=== PATIENT | male | born 1960 | race Caucasian/White ===

== ENCOUNTER 2020-10-20 10:30 | Outpatient (REF) | payer BC, SELFPAY ==
[2020-10-20 12:24] LABS: Alanine Aminotransferase 30 U/L (0-40); Albumin Level 4.4 g/dL (3.5-5.0); Alkaline Phosphatase 70 U/L (39-117); Aspartate Amino Transferase 19 U/L (5-37); Bilirubin Direct 0.2 mg/dL (0.0-0.5); Bilirubin Total 0.3 mg/dL (0.0-1.0); Cholesterol 192 mg/dL; Glucose Fasting 149 mg/dL (60-99); HDL Cholesterol 33 mg/dL; LDL Cholesterol Calculated 120 mg/dl; Total Protein 6.8 g/dL (6.5-8.0); Triglycerides 197 mg/dL
[2020-10-20 13:03] LABS: Reflex LDLD? No
[2020-10-20 13:14] LABS: Estimated Average Glucose 157 mg/dL; Hemoglobin A1c % 7.1 %
== END 2020-10-20 10:31 | disposition home or self-care (01) ==
LOC: HO.LNP 10:30
PROVIDERS: Visit Provider Internal Medicine
DX: E11.9 Type 2 diabetes mellitus without complications (principal); E78.00 Pure hypercholesterolemia, unspecified
CPT/HCPCS: 80061; 80076; 82947; 83036

== ENCOUNTER 2020-10-25 13:39 | Outpatient (REF) | payer BC, SELFPAY ==
[2020-10-25 14:06] LABS: Glucose Urine UA NEG (NEG); Leukocyte Esterase Urine NEG (NEG); Nitrite Urine NEG (NEG); Urine Blood NEG (NEG); Urine Ketones 5 MG/DL (NEG); Urine Protein NEG (NEG-TRACE)
[2020-10-25 14:11] LABS: Appearance Urine CLEAR; Color Urine YELLOW
== END 2020-10-25 13:40 | disposition home or self-care (01) ==
LOC: HO.LNP 13:39
PROVIDERS: Visit Provider Internal Medicine
DX: N20.0 Calculus of kidney (principal)
CPT/HCPCS: 81003

== ENCOUNTER 2021-03-08 11:36 | Outpatient (REF) | payer BC, SELFPAY ==
--- NOTE | ~2021-03-08 | XR_ITS ---
EXAMINATION: XR FOOT, RIGHT CLINICAL INFORMATION: Cellulitis COMPARISON: Previous x-ray December 2008 TECHNIQUE: AP, lateral, and oblique views of the right foot. FINDINGS: Bone alignment is normal. No fracture or dislocation is seen. There is mild arthritis at the first MTP joint with joint space narrowing and osteophyte formation. Joint spaces are otherwise normal in there are small calcaneal spurs. There is soft tissue calcification plantar fascia. 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 Small calcaneal spurs and soft tissue calcification of the plantar fascia.
== END 2021-03-08 11:37 | disposition home or self-care (01) ==
LOC: HO.HMGCX 11:36
PROVIDERS: PCP Internal Medicine; Visit Provider Nurse Practitioner Family
DX: L03.90 Cellulitis, unspecified (principal)
CPT/HCPCS: 73630

== ENCOUNTER 2021-04-03 07:12 | Day surgery (SDC) | payer BC, SELFPAY ==
[2021-03-27 09:42] VITALS: BMI 37.5
--- NOTE | 2021-04-03 07:55 | P.CONAN_ITS ---
[facility] Active Problems Active Problems: All Active Problems (Updated 03/27/21 @ 09:40 by Sena askew) Cellulitis (Acute) Contact dermatitis (Acute) Past Medical History Medical History (Updated 03/27/21 @ 09:40 by Sena Aquino) Diabetes Elevated cholesterol Seizures Functional capacity: independent ambulation Family History Family history of problems with anesthesia: No Surgical History Surgical History H/O colonoscopy History of Problems with Anesthesia: No Social History Social History Advance Directives: No Advance Directives Information Provided: Yes Meds Allergies Allergy/AdvReac Type Severity Reaction Status Date / Time No Known Allergies Allergy Unverified 05/05/20 14:42 Home Medications Medication Instructions Recorded Confirmed Last Taken Type divalproex 500 mg tablet,delayed 500 mg PO 03/08/21 Unknown History release furosemide 20 mg tablet 20 mg PO DAILY 03/08/21 03/27/21 Unknown History metformin 500 mg tablet 1,000 mg PO BID 03/08/21 03/27/21 Unknown History phenytoin sodium extended 100 mg 100 mg PO BID 03/08/21 03/27/21 Unknown History capsule rosuvastatin 40 mg tablet 40 mg PO DAILY 03/08/21 03/27/21 Unknown History sitagliptin 100 mg tablet 100 mg PO DAILY 03/08/21 03/27/21 Unknown History Exam Exam Date and Time: April 03, 2021 0755 Height,Weight and Vital Signs: Height 5 ft 1 in Weight 90.265 kg Airway Mallampati Class: II TM Dist: >3cm Neck ROM: Full Heart: RRR Lungs: tA Assessment and Plan Final Anesthetic Review Family History of Problems with Anesthesia: No History of Problems with Anesthesia: No
[2021-04-03 08:13] VITALS: BMI 35.9
[2021-04-03 08:14] VITALS: BP 148/87; PULSE 74; RESP 18; TEMP 36.2; O2SAT 99
[2021-04-03 08:37] LABS: Glucose, Whole Blood 195 mg/dL (60-115)
[2021-04-03] MEDS: Lactated Ringers 1,000 ML 50 ML IVCONT (09:40)
[2021-04-03 10:25] VITALS: BP 120/71; PULSE 79; RESP 16; TEMP 36.8; O2SAT 97
--- NOTE | 2021-04-03 10:27 | PM.OP ---
Brief Operative Note Date of Service: 04/03/21 Pre-op diagnosis: Screening Post-op diagnosis: other (Colon polyp) Procedure: Colonoscopy to the cecum and TI with bx/removal of polyp Surgeon: Johnny Carlisle Anesthesia: MAC Was an Photovoltaic Subcontractor used for this Procedure?: No Estimated blood loss (mL): 3.0 Pathology: other (A. Polyp at 20cm) Condition: stable Disposition: PACU
[2021-04-03 10:30] VITALS: BP 128/76; PULSE 78; RESP 16; O2SAT 98
[2021-04-03 10:35] VITALS: BP 138/84; PULSE 72; RESP 16; TEMP 36.7; O2SAT 100
--- NOTE | 2021-04-03 10:36 | OP_ITS ---
SURGEON: Johnny Carlisle MD INDICATIONS: The patient presents for evaluation of colorectal cancer screening. Full consent has been obtained from him for this, including risks of bleeding and perforation. PREOPERATIVE DIAGNOSIS: Colorectal cancer screening. POSTOPERATIVE DIAGNOSIS: PROCEDURE PERFORMED: Colonoscopy to the cecum and terminal ileum with biopsy and removal of polyp. ESTIMATED BLOOD LOSS: COMPLICATIONS: ANESTHESIA: Monitored anesthesia care. ASSISTANTS: SPECIMENS: POSTOPERATIVE DIAGNOSES: Colorectal cancer screening, small colon polyp, diverticulosis, and small internal hemorrhoids. DESCRIPTION OF PROCEDURE: The patient was placed in the left lateral decubitus position. The digital rectal exam revealed no abnormalities. The Olympus video pediatric colonoscope was entered into the rectum and advanced easily to the cecum. Once in the cecum, I did identify normal-appearing cecal pouch with appendiceal orifice and a normal-appearing ileocecal valve. The terminal ileum was cannulated and appeared normal. The scope was withdrawn back in the colon. The entire cecum and ileocecal valve appeared normal. Scope was slowly withdrawn assessing all mucosal surfaces carefully. Preparation was excellent. At 20 cm, was a flat approximately 3 or 4 mm polyp, which was biopsied and completely removed with cold biopsy forceps. I did not visualize any other polyps, colitis, nor angiodysplasia. There was a moderate amount of sigmoid diverticulosis. In the rectum, scope was retroflexed visualizing small internal hemorrhoids, but no other pathology. The rectal mucosa appeared normal. The scope was straightened out and withdrawn from the patient. He tolerated the procedure well and was returned to the recovery area in stable condition. IMPRESSION: 1. Small colon polyp, status post biopsy and removal. 2. Diverticulosis. 3. Internal hemorrhoids. PLAN: The results of the biopsy will be checked. If this is a tubular adenoma, I would recommend a followup colonoscopy in 5 years. If it is only hyperplastic, I would recommend a followup colonoscopy in 10 years. He will otherwise see me on a p.r.n. basis. MD CAITLIN Fry/MARIA ELENA / [phone]
== END 2021-04-03 11:00 | disposition home or self-care (01) ==
PROVIDERS: PCP Internal Medicine; Visit Provider Internal Medicine
PROC: 0DJD8ZZ Inspection of Lower Intestinal Tract, Via Natural or Artificial Opening Endoscopic (ICD-10-PCS; CPT 45378; principal; 2021-04-03 09:20)
DX: Z12.11 Encounter for screening for malignant neoplasm of colon (principal); D12.5 Benign neoplasm of sigmoid colon; K57.30 Diverticulosis of large intestine without perforation or abscess without bleeding; K64.8 Other hemorrhoids; E11.9 Type 2 diabetes mellitus without complications; R56.9 Unspecified convulsions; E78.5 Hyperlipidemia, unspecified; Z79.82 Long term (current) use of aspirin; Z79.84 Long term (current) use of oral hypoglycemic drugs; Z79.899 Other long term (current) drug therapy
CPT/HCPCS: 45380; 82947; 88305

== ENCOUNTER 2021-04-25 10:13 | Outpatient (REF) | payer BC, SELFPAY ==
[2021-04-25 10:16] LABS: MANUAL DIFF FLAG NO
[2021-04-25 11:20] LABS: Basophils Absolute Auto 0.1 X10*3/uL (0.0-0.2); Basophils Percent Auto 0.8 % (0-2); Eosinophils Absolute Auto 0.3 X10*3/uL (0.0-0.4); Eosinophils Percent Auto 4.8 % (0-4); Hematocrit 37.1 % (42-52); Hemoglobin 12.8 g/dl (14.0-18.0); Imm Gran Abs Auto 0.06 X10*3/uL (0.00-0.03); Imm Gran Pct Auto 0.9 % (0.0-0.4); Lymphocytes Absolute Auto 2.6 X10*3/uL (1.2-4.9); Lymphocytes Percent Auto 40.9 % (20-40); Mean Corpuscular HGB Conc 34.5 g/dl (31.0-36.0); Mean Corpuscular Hemoglobin 31.1 pg (27.0-33.0); Mean Platelet Volume 12.2 fL (9.4-12.4); Monocytes Absolute Auto 0.7 X10*3/uL (0.1-1.2); Monocytes Percent Auto 11.3 % (2-11); Neutrophils Absolute Auto 2.7 X10*3/uL (2.0-8.3); Neutrophils Percent Auto 41.3 % (45-73); Platelet Count 149 X10*3/uL (160-400); Red Blood Count 4.12 X10*6/uL (4.60-5.80); Red Cell Distribution Width 13.1 % (11.0-16.0); White Blood Count 6.5 X10*3/uL (4.8-10.8)
[2021-04-25 12:00] LABS: Alanine Aminotransferase 23 U/L (0-40); Albumin Level 4.2 g/dL (3.5-5.0); Alkaline Phosphatase 75 U/L (39-117); Anion Gap 12 (12-20); Aspartate Amino Transferase 15 U/L (5-37); Bilirubin Total 0.3 mg/dL (0.0-1.0); Blood Urea Nitrogen 10 mg/dL (9-16); Carbon Dioxide 29 mmol/L (22-29); Chloride 105 mmol/L (96-108); Cholesterol 173 mg/dL; Estimated Glomerular Filt Rate > 60; Glucose Fasting 157 mg/dL (60-99); HDL Cholesterol 39 mg/dL; LDL Cholesterol Calculated 104 mg/dl; Potassium 3.7 mmol/L (3.3-5.1); Sodium 142 mmol/L (135-145); Total Protein 6.7 g/dL (6.5-8.0); Triglycerides 152 mg/dL
[2021-04-25 12:23] LABS: PSA,Total (Free>4and<10) 0.57 ng/mL (0.00-4.00); Vitamin D 25-OH Total 27.8 ng/mL (>30)
[2021-04-25 12:45] LABS: Reflex LDLD? No
[2021-04-25 13:18] LABS: Estimated Average Glucose 163 mg/dL; Hemoglobin A1c % 7.3 %
== END 2021-04-25 10:14 | disposition home or self-care (01) ==
LOC: HO.LNP 10:13
PROVIDERS: Visit Provider Internal Medicine
DX: Z00.00 Encounter for general adult medical examination without abnormal findings (principal); E11.9 Type 2 diabetes mellitus without complications; G40.909 Epilepsy, unspecified, not intractable, without status epilepticus; E78.00 Pure hypercholesterolemia, unspecified; D72.820 Lymphocytosis (symptomatic); E55.9 Vitamin D deficiency, unspecified
CPT/HCPCS: 80053; 80061; 82306; 83036; 84153; 85025

== ENCOUNTER 2021-05-02 16:10 | Outpatient (REF) | payer BC, SELFPAY ==
[2021-05-02 16:21] LABS: Appearance Urine CLEAR; Color Urine YELLOW; Glucose Urine UA 500 MG/DL (NEG); Leukocyte Esterase Urine NEG (NEG); Nitrite Urine NEG (NEG); Specific Gravity - Urine 1.025 (1.005-1.025); Urine Blood NEG (NEG); Urine Ketones 5 MG/DL (NEG); Urine Protein NEG (NEG-TRACE)
[2021-05-02 16:47] LABS: RBC Urine 0 /HPF (0); WBC Urine 0 /HPF (0-4)
[2021-05-02 17:13] LABS: Microalbum/Creatinine Ratio Ur 6.1 ug/mg cr
== END 2021-05-02 16:11 | disposition home or self-care (01) ==
LOC: HO.LNP 16:10
PROVIDERS: Visit Provider Internal Medicine
DX: E11.9 Type 2 diabetes mellitus without complications (principal)
CPT/HCPCS: 81001; 82043

== ENCOUNTER 2022-04-19 08:46 | Outpatient (REF) | payer BC, SELFPAY ==
--- NOTE | ~2022-04-19 | XR_ITS ---
EXAMINATION: XR HIP, LEFT CLINICAL INFORMATION: Left hip pain. Fall, trauma 3 weeks ago. COMPARISON: None TECHNIQUE: Three views of the left hip. FINDINGS: No fracture, dislocation, destructive process. Normal bony mineralization. No significant joint narrowing and no erosive change. There is benign labral capsular mineralization superolateral acetabular rim and mild spurring from the greater trochanter. There is also spurring at the ischial tuberosity origin tendons. The pubis is unremarkable. XR/XR hip LT min 2V IMPRESSION: -No fracture or dislocation. -Mild spurring greater trochanter and ischial tuberosity.
== END 2022-04-19 08:47 | disposition home or self-care (01) ==
LOC: HO.XRAY 08:46
PROVIDERS: PCP Internal Medicine; Visit Provider Internal Medicine
DX: M25.552 Pain in left hip (principal)
CPT/HCPCS: 73502

== ENCOUNTER 2022-04-27 11:05 | Outpatient (REF) | payer BC, SELFPAY ==
[2022-04-27 11:11] LABS: MANUAL DIFF FLAG NO
[2022-04-27 11:48] LABS: Basophils Absolute Auto 0.1 X10*3/uL (0.0-0.2); Basophils Percent Auto 0.9 % (0-2); Eosinophils Absolute Auto 0.3 X10*3/uL (0.0-0.4); Eosinophils Percent Auto 5.6 % (0-4); Hematocrit 39.3 % (42.0-52.0); Hemoglobin 13.5 g/dl (14.0-18.0); Imm Gran Abs Auto 0.05 X10*3/uL (0.00-0.03); Imm Gran Pct Auto 0.9 % (0.0-0.4); Lymphocytes Absolute Auto 2.7 X10*3/uL (1.2-4.9); Lymphocytes Percent Auto 45.9 % (20-40); Mean Corpuscular HGB Conc 34.4 g/dl (31.0-36.0); Mean Corpuscular Hemoglobin 30.7 pg (27.0-33.0); Mean Corpuscular Volume 89.3 fL (80.0-98.0); Monocytes Absolute Auto 0.6 X10*3/uL (0.1-1.2); Monocytes Percent Auto 9.7 % (2-11); Neutrophils Absolute Auto 2.2 x10*3/uL (2.0-8.3); Platelet Count 137 X10*3/uL (160-400); Red Cell Distribution Width 13.2 % (11.0-16.0); White Blood Count 5.9 X10*3/uL (4.8-10.8)
[2022-04-27 11:56] LABS: Appearance Urine Clear; Color Urine Yellow; Glucose Urine UA >=1000 mg/dL (Negative); Leukocyte Esterase Urine Negative (Negative); Nitrite Urine Negative (Negative); PH 6.5 (5.0-9.0); Specific Gravity - Urine 1.025 (1.005-1.025); Urine Blood Negative (Negative); Urine Ketones Trace mg/dL (Negative); Urine Protein Negative (Neg-Trace)
[2022-04-27 11:59] LABS: Bacteria Urine None Seen (None Seen); Estimated Average Glucose 212 mg/dL; Hyaline Casts Urine 0-2 /LPF (0-2); RBC Urine 0-2 /HPF (0-2); Squamous Epithelial Cell Urine 0-2 /HPF (0-2); WBC Urine 0-5 /HPF (0-5)
[2022-04-27 12:05] LABS: Alanine Aminotransferase 24 U/L (0-40); Albumin Level 4.2 g/dL (3.5-5.0); Alkaline Phosphatase 73 U/L (39-117); Anion Gap 15 (12-20); Aspartate Amino Transferase 17 U/L (5-37); Bilirubin Total 0.2 mg/dL (0.0-1.0); Blood Urea Nitrogen 12 mg/dL (9-16); Calcium 9.1 mg/dL (8.4-10.2); Carbon Dioxide 27 mmol/L (22-29); Chloride 102 mmol/L (96-108); Cholesterol 235 mg/dL; Estimated Glomerular Filt Rate > 60; Glucose Fasting 251 mg/dL (60-99); HDL Cholesterol 36 mg/dL; LDL Cholesterol Calculated 125 mg/dl; Potassium 4.1 mmol/L (3.3-5.1); Sodium 140 mmol/L (135-145); Total Protein 6.9 g/dL (6.5-8.0); Triglycerides 371 mg/dL
[2022-04-27 12:40] LABS: Creatinine Urine 106.74 mg/dL; Microalbumin Urine < 5.0 mg/L
[2022-04-27 13:24] LABS: PSA,Total (Free>4and<10) 0.53 ng/mL (0.00-4.00); Vitamin D 25-OH Total 36.4 ng/mL (>30)
== END 2022-04-27 11:06 | disposition home or self-care (01) ==
LOC: HO.LNP 11:05
PROVIDERS: Visit Provider Internal Medicine
DX: Z00.00 Encounter for general adult medical examination without abnormal findings (principal); Z12.5 Encounter for screening for malignant neoplasm of prostate; E11.9 Type 2 diabetes mellitus without complications; E78.2 Mixed hyperlipidemia; E55.9 Vitamin D deficiency, unspecified; D72.820 Lymphocytosis (symptomatic); E78.00 Pure hypercholesterolemia, unspecified
CPT/HCPCS: 80053; 80061; 81001; 82043; 82306; 83036; 84153; 85025

== ENCOUNTER 2022-08-16 10:22 | Outpatient (REF) | payer BC, SELFPAY ==
[2022-08-16 10:23] LABS: MANUAL DIFF FLAG NO
[2022-08-16 10:37] LABS: Basophils Absolute Auto 0.1 X10*3/uL (0.0-0.2); Basophils Percent Auto 1.1 % (0-2); Eosinophils Absolute Auto 0.5 X10*3/uL (0.0-0.4); Eosinophils Percent Auto 6.7 % (0-4); Hemoglobin 13.9 g/dl (14.0-18.0); Imm Gran Abs Auto 0.05 X10*3/uL (0.00-0.03); Imm Gran Pct Auto 0.7 % (0.0-0.4); Lymphocytes Absolute Auto 3.8 X10*3/uL (1.2-4.9); Lymphocytes Percent Auto 52.1 % (20-40); Mean Corpuscular HGB Conc 34.8 g/dl (31.0-36.0); Mean Corpuscular Hemoglobin 30.8 pg (27.0-33.0); Mean Corpuscular Volume 88.5 fL (80.0-98.0); Mean Platelet Volume 11.7 fL (9.4-12.4); Monocytes Absolute Auto 0.6 X10*3/uL (0.1-1.2); Monocytes Percent Auto 8.7 % (2-11); Neutrophils Absolute Auto 2.3 x10*3/uL (2.0-8.3); Neutrophils Percent Auto 30.7 % (45-73); Platelet Count 166 X10*3/uL (160-400); Red Blood Count 4.52 X10*6/uL (4.60-5.80); Red Cell Distribution Width 13.2 % (11.0-16.0); White Blood Count 7.3 X10*3/uL (4.8-10.8)
== END 2022-08-16 10:23 | disposition home or self-care (01) ==
LOC: HO.LNP 10:22
PROVIDERS: PCP Internal Medicine; Visit Provider Internal Medicine
DX: D69.6 Thrombocytopenia, unspecified (principal)
CPT/HCPCS: 85025

== ENCOUNTER 2022-12-13 15:37 | Outpatient (REF) | payer BC, SELFPAY ==
[2022-12-18 07:38] LABS: Lyme Abs Screen <0.90 index
== END 2022-12-13 15:38 | disposition home or self-care (01) ==
LOC: HO.LNP 15:37
PROVIDERS: Visit Provider Internal Medicine
DX: M19.90 Unspecified osteoarthritis, unspecified site (principal)
CPT/HCPCS: 86617; 86618

== ENCOUNTER 2023-03-26 11:55 | Outpatient (REF) | payer BC, SELFPAY ==
[2023-03-26 13:26] LABS: Phenytoin Dilantin 14.5 ug/mL (10.0-20.0)
== END 2023-03-26 11:56 | disposition home or self-care (01) ==
LOC: HO.LNP 11:55
PROVIDERS: Visit Provider Internal Medicine
DX: G40.909 Epilepsy, unspecified, not intractable, without status epilepticus (principal)
CPT/HCPCS: 80185

== ENCOUNTER 2023-05-10 10:58 | Outpatient (REF) | payer BC, SELFPAY ==
[2023-05-10 11:07] LABS: MANUAL DIFF FLAG NO
[2023-05-10 11:41] LABS: Appearance Urine Clear; Color Urine Yellow; Glucose Urine UA 250 mg/dL (Negative); Leukocyte Esterase Urine Negative (Negative); Nitrite Urine Negative (Negative); Specific Gravity - Urine 1.025 (1.005-1.025); Urine Blood Negative (Negative); Urine Ketones 15 mg/dL (Negative); Urine Protein Negative (Neg-Trace)
[2023-05-10 11:45] LABS: Bacteria Urine None Seen (None Seen); Hyaline Casts Urine 0-2 /LPF (0-2); RBC Urine 0-2 /HPF (0-2); Squamous Epithelial Cell Urine 0-2 /HPF (0-2); WBC Urine 0-5 /HPF (0-5)
[2023-05-10 11:46] LABS: Basophils Absolute Auto 0.1 X10*3/uL (0.0-0.2); Basophils Percent Auto 1.4 % (0-2); Eosinophils Absolute Auto 0.4 X10*3/uL (0.0-0.4); Eosinophils Percent Auto 6.2 % (0-4); Hemoglobin 12.8 g/dl (14.0-18.0); Imm Gran Abs Auto 0.05 X10*3/uL (0.00-0.03); Imm Gran Pct Auto 0.8 % (0.0-0.4); Lymphocytes Absolute Auto 2.8 X10*3/uL (1.2-4.9); Mean Corpuscular HGB Conc 34.6 g/dl (31.0-36.0); Mean Corpuscular Hemoglobin 31.4 pg (27.0-33.0); Mean Corpuscular Volume 90.9 fL (80.0-98.0); Monocytes Absolute Auto 0.7 X10*3/uL (0.1-1.2); Monocytes Percent Auto 10.9 % (2-11); Neutrophils Absolute Auto 2.4 x10*3/uL (2.0-8.3); Neutrophils Percent Auto 36.7 % (45-73); Platelet Count 148 X10*3/uL (160-400); Red Blood Count 4.07 X10*6/uL (4.60-5.80); Red Cell Distribution Width 13.6 % (11.0-16.0); White Blood Count 6.4 X10*3/uL (4.8-10.8)
[2023-05-10 11:54] LABS: Estimated Average Glucose 163 mg/dL; Hemoglobin A1c % 7.3 % (<6.0)
[2023-05-10 12:10] LABS: Creatinine Urine 129.88 mg/dL; Microalbum/Creatinine Ratio Ur 4.6 ug/mg cr (<30)
[2023-05-10 12:16] LABS: Alanine Aminotransferase 36 U/L (0-40); Albumin Level 4.2 g/dL (3.5-5.0); Alkaline Phosphatase 62 U/L (39-117); Anion Gap 14 (12-20); Aspartate Amino Transferase 22 U/L (5-37); Bilirubin Total 0.2 mg/dL (0.0-1.0); Blood Urea Nitrogen 10 mg/dL (9-16); Carbon Dioxide 26 mmol/L (22-29); Chloride 106 mmol/L (96-108); Cholesterol 208 mg/dL (<200); Estimated Glomerular Filt Rate > 60; Glucose Fasting 165 mg/dL (60-99); HDL Cholesterol 38 mg/dL (>40); Potassium 4.1 mmol/L (3.3-5.1); Sodium 142 mmol/L (135-145); Total Protein 6.7 g/dL (6.5-8.0); Triglycerides 439 mg/dL (<150)
== END 2023-05-10 10:59 | disposition home or self-care (01) ==
LOC: HO.LNP 10:58
PROVIDERS: Visit Provider Internal Medicine
DX: Z00.00 Encounter for general adult medical examination without abnormal findings (principal); E11.9 Type 2 diabetes mellitus without complications; E78.00 Pure hypercholesterolemia, unspecified; D72.820 Lymphocytosis (symptomatic); E55.9 Vitamin D deficiency, unspecified; D69.6 Thrombocytopenia, unspecified
CPT/HCPCS: 80053; 80061; 81001; 82043; 82306; 82570; 83036; 85025

== ENCOUNTER 2023-06-11 15:23 | Outpatient (REF) | payer BC, SELFPAY ==
[2023-06-11 16:32] LABS: PSA,Total (Free>4and<10) 0.52 ng/mL (0.00-4.00)
== END 2023-06-11 15:24 | disposition home or self-care (01) ==
LOC: HO.LNP 15:23
PROVIDERS: Visit Provider Internal Medicine
DX: Z12.5 Encounter for screening for malignant neoplasm of prostate (principal)
CPT/HCPCS: 84153

== ENCOUNTER 2023-08-28 14:57 | Outpatient (REF) | payer BC, SELFPAY ==
[2023-08-28 15:46] LABS: Estimated Average Glucose 237 mg/dL; Hemoglobin A1c % 9.9 % (<6.0)
[2023-08-28 16:12] LABS: Anion Gap 13 (12-20); Blood Urea Nitrogen 10 mg/dL (9-16); Calcium 9.2 mg/dL (8.4-10.2); Carbon Dioxide 28 mmol/L (22-29); Chloride 102 mmol/L (96-108); Estimated Glomerular Filt Rate > 60; Glucose Random 299 mg/dL (60-115); Potassium 4.3 mmol/L (3.3-5.1); Sodium 139 mmol/L (135-145)
[2023-08-28 16:17] LABS: Phenytoin Dilantin 17.3 ug/mL (10.0-20.0)
== END 2023-08-28 14:58 | disposition home or self-care (01) ==
LOC: HO.LAB 14:57
PROVIDERS: PCP Internal Medicine; Visit Provider Psychiatry & Neurology Neurology
DX: G40.909 Epilepsy, unspecified, not intractable, without status epilepticus (principal); Z79.899 Other long term (current) drug therapy
CPT/HCPCS: 36415; 80048; 80164; 80185; 83036

== ENCOUNTER 2023-09-30 10:45 | Emergency (ER) | payer BC, SELFPAY ==
[2023-09-30] VITALS (9 sets, daily range): BP systolic 146–181; BP diastolic 83–102; PULSE 74–85; RESP 16; TEMP 36.6–36.8; O2SAT 96–98; BMI 32.9
--- NOTE | ~2023-09-30 | CT_ITS ---
EXAMINATION: CT HEAD WITHOUT CONTRAST CLINICAL INFORMATION: Dizziness. Resolved double vision. COMPARISON: None available. TECHNIQUE: Contiguous axial imaging was performed from the skull base to vertex without intravenous administration of contrast. This CT examination was performed using dose optimization techniques as appropriate, variously including the following: *Automated exposure control *Adjustment of mA and/or kV according to patient size (this includes techniques or standardized protocols for targeted exams where dose is matched to indication/reason for exam; i.e. extremities or head) *Use of iterative reconstruction technique DLP: 731 mGy-cm FINDINGS: No intracranial hemorrhage, large infarction, or mass lesion is seen. No extra-axial collection is appreciated. The ventricles are normal in size and configuration without evidence of hydrocephalus. Mild mucosal thickening involving the frontal sinus infundibula bilaterally. The mastoid air cells are clear. CT/CT head/brain wo IV con IMPRESSION: No acute intracranial finding.
--- NOTE | ~2023-09-30 | CT_ITS ---
EXAMINATION: CT ANGIOGRAM HEAD CT ANGIOGRAM NECK CLINICAL INFORMATION: Dizziness. Double vision. COMPARISON: CT head from 09/30/2023. TECHNIQUE: Initial noncontrast block trader imaging of the head and neck was performed. Comparison is made with noncontrast head CT from earlier today. Test bolus sequences followed by intravenous administration 70 mL of Omnipaque 350. Helical imaging was performed in the axial plane from the aortic arch to the skull vertex. Delayed postcontrast imaging of the head was also performed. The data was processed at the registered radiologic technologist's workstation for generation of MIP sequences. Angled MIPs and volume rendered reformatted images were also generated at an offline 3D workstation. Stenoses are assessed in accordance with NASCET criteria unless otherwise indicated. This CT examination was performed using dose optimization techniques as appropriate, variously including the following: *Automated exposure control. *Adjustment of mA and/or kV according to patient size (this includes techniques or standardized protocols for targeted exams where dose is matched to indication/reason for exam; i.e. extremities or head). *Use of iterative reconstruction technique. DLP: 1444 mGy-cm FINDINGS: CT Head: There is no evidence of acute intracranial hemorrhage or edematous territorial infarction. Basal ganglia mineralization. Alex-white matter differentiation is preserved. A few foci of hypoattenuation in the periventricular and deep white matter are consistent with mild microangiopathy. Proportional prominence of the ventricles and sulcal spaces without evidence of obstructive hydrocephalus. No abnormal mass effect or midline shift. No extra-axial fluid collections. No pathologic intra-axial enhancement or regional oligemia. No acute soft tissue or osseous abnormalities. Mild mucosal thickening of the paranasal sinuses. The mastoid air cells and middle ear cavities are clear. Multifocal odontogenic enamel erosions. Periapical lucencies associated with the maxillary right 1st molar. No demonstrated abnormalities of the orbits. CT Neck: The thyroid gland and remaining cervical soft tissues are within normal limits. Moderate multilevel degenerative disc disease. Moderate bridging anterior osteoarthrosis from C3-T3. Facet and uncovertebral joint arthropathy leads to osseous encroachment on the neural foramina from C2-T3. CT Upper Chest: The visualized lung apices and upper mediastinum are within normal limits. Neck CTA: Aortic Arch: Normal contour and caliber. Classic 3 vessel branching pattern of the aortic arch. Great Vessel Origins: No significant stenosis of the branch origins. Right Common Carotid Artery: No focal stenosis or occlusion. Cervical Right Internal Carotid Artery: Mild calcific atherosclerotic disease of the carotid bulb and proximal internal carotid artery without flow-limiting stenosis. Left Common Carotid Artery: No focal stenosis or occlusion. Cervical Left Internal Carotid Artery: Mild calcific atherosclerotic disease of the carotid bulb and proximal internal carotid artery without flow-limiting stenosis. Cervical Right Vertebral Artery: Co-dominant. No focal stenosis or occlusion. Cervical Left Vertebral Artery: Co-dominant. No focal stenosis or occlusion. Brain CTA: Intracranial Internal Carotid Arteries: Mild calcific atherosclerotic disease of the intracranial internal carotid arteries without occlusion or flow-limiting stenosis. Right Anterior Cerebral Artery: No Normal opacification of the distal KARAN segments. Left Anterior Cerebral Artery: Normal A1 segment. Normal opacification of the distal KARAN segments. Anterior Communicating Artery: Normal. Right Middle Cerebral Artery: Normal M1 segment of the MCA without focal stenosis or occlusion. Normal arborization of the distal segments. Left Middle Cerebral Artery: Normal M1 segment of the MCA without focal stenosis or occlusion. Normal arborization of the distal segments. Right Vertebral Artery: Normal V4 segment. The posterior inferior cerebellar artery is not well opacified; however, there is no CT evidence of acute occlusion. Left Vertebral Artery: Normal V4 segment. Normal opacification of the proximal segments of the posterior inferior cerebellar artery. Basilar Artery: Normal without focal stenosis or occlusion. Normal appearance of the proximal superior cerebellar arteries. Right Posterior Cerebral Artery: Normal P1 segment. Normal opacification of the distal FURNACE RELINER segments. Left Posterior Cerebral Artery: Normal P1 segment. Normal opacification of the distal FURNACE RELINER segments. Normal opacification of the superior sagittal, straight, transverse, and sigmoid sinuses. CT/CT angio head neck IMPRESSION: 1. No evidence of acute intracranial hemorrhage or edematous territorial infarction. Mild underlying microangiopathy and generalized cerebral volume loss. 2. CTA of the head and neck without proximal occlusion or flow-limiting stenosis. 3. Moderate multilevel degenerative spondyloarthropathy of the cervical spine.
--- NOTE | ~2023-09-30 | US_ITS ---
EXAMINATION: US VENOUS ULTRASOUND WITH DOPPLER LOWER EXTREMITY, LEFT CLINICAL INFORMATION: Pain, swelling Patient states no pain today, pain last week COMPARISON: None available. TECHNIQUE: Ultrasound of the deep veins is performed from the hip to the calf with compression sonography and color and pulse Doppler assessment. Spectral analysis with color-flow imaging is performed. FINDINGS: There is normal venous compression and respiratory variation. The visualized common femoral vein, superficial femoral vein, profunda femoral vein, popliteal vein, and the posterior vein shows no evidence of deep venous thrombosis. The left peroneal vein is not seen. The contralateral common femoral vein demonstrates normal respiratory variation and vascular flow. US/US venous duplex LE IMPRESSION: No DVT demonstrated in the left lower extremity.
--- NOTE | 2023-09-30 11:14 | ECG_ITS ---
Test Reason : DIZZNESS Blood Pressure : / mmHG Vent. Rate : 080 BPM Atrial Rate : 080 BPM P-R Int : 156 ms QRS Dur : 094 ms QT Int : 386 ms P-R-T Axes : 039 -29 006 degrees QTc Int : 445 ms Normal sinus rhythm Normal ECG No previous ECGs available Referred By: Marisela Connolly Electronically Signed By:Chavez Hopson
--- NOTE | 2023-09-30 11:42 | ED.DIZZY ---
HPI - Dizziness General Chief Complaint: Dizziness Stated Complaint: DIZZY PER EMS Time Seen by Provider: 09/30/23 10:48 Source: patient Mode of arrival: EMS Limitations: no limitations History of Present Illness HPI Narrative: 63 yo male with PMH of seizures and diabetes notes he has had one week of dizziness when he stands he just recently started on strong edibles for L knee pain and notes his leg is swelling. He has blurred vision when he stands and is dizzy. He has no GIB or chest pain/dyspnea. He notes yesterday watching TV he had double vision side by side but it resolved during the day. He has no headache. He is compliant with his seizure medications and has not had a seizure. He notes it did all start after taking the strong edible MD elicited complaint: dizziness Onset (ago): day(s) (7) Timing: sudden onset and intermittent Severity: moderate Description: sense of movement and lightheadedness Context: change in body position History of similar symptoms: No Exacerbating factors: movement/ambulation and change in body position Relieving factors: remaining still Associated symptoms: other (L knee pain and swelling) Associated neuro symptoms: diplopia Related Data Home Medications Medication Instructions Recorded Confirmed divalproex 500 mg tablet,delayed 500 mg PO 03/08/21 release furosemide 20 mg tablet 20 mg PO DAILY 03/08/21 03/27/21 metformin 500 mg tablet 1,000 mg PO BID 03/08/21 03/27/21 phenytoin sodium extended 100 mg 100 mg PO BID 03/08/21 03/27/21 capsule rosuvastatin 40 mg tablet 40 mg PO DAILY 03/08/21 03/27/21 sitagliptin phosphate 100 mg tablet 100 mg PO DAILY 03/08/21 03/27/21 Previous Rx's Medication Instructions Recorded cephalexin 500 mg capsule 500 mg PO QID 7 days #28 caps 03/08/21 hydrocortisone 1 % topical cream 1 appl topical QID PRN skin 03/08/21 irritation #28.35 grams Allergies Allergy/AdvReac Type Severity Reaction Status Date / Time No Known Allergies Allergy Unverified 05/05/20 14:42 Review of Systems Review of Systems: Constitutional : No Fever, No Chills, No Fatigue ENT/Mouth : No sore throat, No Rhinorrhea Eyes: No Eye Pain, No Swelling, No Redness Cardiovascular : No Chest Pain, No SOB, No Dyspnea on Exertion Respiratory : No Cough, No Sputum Gastrointestinal : No Nausea, No Vomiting, No Diarrhea, No abdominal Pain Genitourinary : No Dysuria, No Urinary Frequency, No Hematuria, Musculoskeletal : pos joint pain, No Myalgias, No Joint Swelling, pos leg edema Skin : No Skin Lesions, No rash Neuro : No Weakness, No Numbness, pos Dizziness, no Headache Psych : No Anxiety/Panic, No Depression Heme/Lymph: No Bruising, No Bleeding,No Lymphadenopathy Endocrine : No Polyuria, No Polydipsia All other systems reviewed and are negative [facility] Past Medical History Attestation statement: The following information was validated with the patient. Source: old records reviewed Medical History Elevated cholesterol Seizures Diabetes Surgical History H/O colonoscopy Social History Social History Patient Tobacco Use Status: Never used Tobacco Smoked in Last 30 Days: No Use of substances other than those prescribed or required for medical reasons: Yes Substance Use Type: Marijuana Substance Use Frequency: Weekly Last Used Substance: Weeks (ago) Advance Directives: No Physical Exam Vital Signs: Vital Signs: Last Vital Signs Temp 98 F 09/30/23 10:55 Pulse 82 09/30/23 14:31 Resp 16 09/30/23 10:55 BP 147/90 H 09/30/23 14:31 Pulse Ox 98 09/30/23 10:55 O2 Del Method Room Air 09/30/23 10:55 BMI result Body Mass Index 32.9 Appearance: Alert. Oriented X3. No acute distress. Loopy appearing Eyes: Pupils equal, round and reactive to light. ENT: Pharynx normal. atraumatic Neck: Normal inspection. Neck supple. CVS: Normal heart rate and rhythm. Pulses normal. Respiratory: No respiratory distress. Breath sounds normal. Abdomen: Soft and nontender. Skin: Skin warm and dry. Normal skin color. Normal skin turgor. Extremities: mild trace pitting edema left leg distal NV Intact no erythema or warmth Neuro: Oriented X 3. No motor deficit. No sensory deficit. Course Course Course Narrative: negative ortho VS, he is very wobbly walking Reevaluation(s) Reevaluation #1: signed out to Dr. Nelson pending CTA Medications Administered Discontinued Medications Generic Name Dose Route Start Last Admin Trade Name Baldomero PRN Reason Stop Dose Admin Magnesium Sulfate 2 gm in 50 mls @ 25 mls/hr 09/30/23 13:12 09/30/23 14:05 Magnesium Sulfate/H2o IV 09/30/23 15:11 25 mls/hr ONCE ONE Administration Medical Decision Making Medical Decision Making [facility] Narrative: 63 yo male with PMH of seizures and diabetes here with c/o dizziness and blurred vision when standing did have episode of double vision yesterday - he has nonfocal neuro exam. This all started one week ago with starting a strong edible for L knee pain. At this time he will need labs, EKG, CT head for mass/stroke though seems more positional or related to the edible, given swelling in LLE DVT study, depakote level for toxicity, ortho VS Differential Diagnosis Differential Diagnoses: The differential diagnosis associated with the presentation includes edible side effects, anemia, dehydration, mass, stroke, depakote toxicity Admission/Observation Consideration of admission/observation: Escalation of care including admission/observation considered Lab Data [facility] Lab Attestation statement: I reviewed the patient's lab results. 09/30/23 12:24 09/30/23 12:24 Labs: Lab Results 09/30/23 09/30/23 09/30/23 Range/Units 12:23 12:24 12:44 WBC 5.4 (4.8-10.8) X10*3/uL RBC 4.43 L (4.60-5.80) X10*6/uL Hgb 13.7 L (14.0-18.0) g/dl Hct 39.3 L (42.0-52.0) % MCV 88.7 (80.0-98.0) fL MCH 30.9 (27.0-33.0) pg MCHC 34.9 (31.0-36.0) g/dl RDW 13.1 (11.0-16.0) % Plt Count 141 L (160-400) X10*3/uL MPV 11.7 (9.4-12.4) fL Immature Gran % (Auto) 0.6 H (0.0-0.4) % Neut % (Auto) 38.2 L (45-73) % Lymph % (Auto) 34.7 (20-40) % Wheeler % (Auto) 7.6 (2-11) % Eos % (Auto) 17.8 H (0-4) % Baso % (Auto) 1.1 (0-2) % Lymph # (Auto) 1.9 (1.2-4.9) X10*3/uL Wheeler # (Auto) 0.4 (0.1-1.2) X10*3/uL Eos # (Auto) 1.0 H (0.0-0.4) X10*3/uL Baso # (Auto) 0.1 (0.0-0.2) X10*3/uL Abs Immat Gran (auto) 0.03 (0.00-0.03) X10*3/uL Absolute Neuts (auto) 2.1 (2.0-8.3) x10*3/uL Absolute Nucleated RBC 0.000 (0.0-0.012) X10*3/uL Nucleated RBC % (auto) 0.0 (0.0-0.2) /100WBC Sodium 138 (135-145) mmol/L Potassium 3.9 (3.3-5.1) mmol/L Chloride 103 (96-108) mmol/L Carbon Dioxide 27 (22-29) mmol/L Anion Gap 12 (12-20) BUN 15 (9-16) mg/dL Creatinine 0.71 (0.5-1.4) mg/dL Estim Creat Clear Calc 99.5 Estimated GFR > 60 Random Glucose 157 H (60-115) mg/dL Calcium 9.2 (8.4-10.2) mg/dL Magnesium 1.4 L* (1.6-2.6) mg/dL Total Bilirubin 0.3 (0.0-1.0) mg/dL Direct Bilirubin 0.1 (0.0-0.5) mg/dL AST 13 (5-37) U/L ALT 20 (0-40) U/L Alkaline Phosphatase 65 (39-117) U/L Troponin I High Sens < 2.7 (<3.5-35.0) ng/L Total Protein 6.5 (6.5-8.0) g/dL Albumin 4.0 (3.5-5.0) g/dL Urine Color Yellow Urine Appearance Clear Urine pH 6.5 (5.0-9.0) Ur Specific [place] 1.015 (1.005-1.025) Urine Protein Negative (Neg-Trace) mg/dL Urine Glucose (UA) Negative (Negative) mg/dL Urine Ketones 15 (Negative) mg/dL Urine Blood Negative (Negative) Urine Nitrite Negative (Negative) Ur Leukocyte Esterase Negative (Negative) Urine Opiates Screen Not Detected (Not Detect) Urine Fentanyl Screen Not Detected (Not Detect) Ur Barbiturates Screen Not Detected (Not Detect) Valproic Acid 38.3 L (50.0-100.0) mcg/mL Ur Phencyclidine Scrn Not Detected (Not Detect) Ur Amphetamines Screen Not Detected (Not Detect) U Benzodiazepines Scrn Not Detected (Not Detect) Urine Cocaine Screen Not Detected (Not Detect) U Marijuana (THC) Screen Not Detected (Not Detect) Ethyl Alcohol < 10 mg/dL COVID-19 (SAL) Negative (Negative) COVID-19 Clin Com See Note Independent Interpretation I performed an independent interpretation of an: EKG, Ultrasound and CT Scan Interpretation: Rate: 80 Rhythm: NSR [place]: left Normal P waves. Normal [place]. Normal QRS complex. ST T wave : normal no EMILIANO qTC: 445 prior studies: no acute ischemia The study has been interpreted contemporaneously by me. . Radiology Impression Discussion of test interpretation with radiology: I have reviewed the radiologist's reading. Independent Historian Clinical information obtained from an independent historian. History obtained from or confirmed by: EMS External Record Review External record reviewed: Inpatient record Discharge Plan Discharge Clinical Impression: Hypomagnesemia, Dizziness Patient Disposition: Still a Patient Prescriptions: No Action Januvia 100 mg tablet 100 mg PO DAILY rosuvastatin 40 mg tablet 40 mg PO DAILY furosemide 20 mg tablet 20 mg PO DAILY divalproex 500 mg tablet,delayed release (DR/EC) 500 mg PO phenytoin sodium extended 100 mg capsule 100 mg PO BID metformin 500 mg tablet 1,000 mg PO BID cephalexin 500 mg capsule 500 mg PO QID 7 Days Qty: 28 0RF hydrocortisone 1 % cream 1 appl topical QID PRN (Reason: skin irritation) Qty: 28.35 0RF
[2023-09-30 12:31] LABS: MANUAL DIFF FLAG NO
[2023-09-30 12:35] LABS: Basophils Absolute Auto 0.1 X10*3/uL (0.0-0.2); Basophils Percent Auto 1.1 % (0-2); Eosinophils Percent Auto 17.8 % (0-4); Hematocrit 39.3 % (42.0-52.0); Hemoglobin 13.7 g/dl (14.0-18.0); Imm Gran Abs Auto 0.03 X10*3/uL (0.00-0.03); Imm Gran Pct Auto 0.6 % (0.0-0.4); Lymphocytes Absolute Auto 1.9 X10*3/uL (1.2-4.9); Lymphocytes Percent Auto 34.7 % (20-40); Mean Corpuscular HGB Conc 34.9 g/dl (31.0-36.0); Mean Corpuscular Hemoglobin 30.9 pg (27.0-33.0); Mean Corpuscular Volume 88.7 fL (80.0-98.0); Mean Platelet Volume 11.7 fL (9.4-12.4); Monocytes Absolute Auto 0.4 X10*3/uL (0.1-1.2); Monocytes Percent Auto 7.6 % (2-11); Neutrophils Absolute Auto 2.1 x10*3/uL (2.0-8.3); Neutrophils Percent Auto 38.2 % (45-73); Platelet Count 141 X10*3/uL (160-400); Red Blood Count 4.43 X10*6/uL (4.60-5.80); Red Cell Distribution Width 13.1 % (11.0-16.0); White Blood Count 5.4 X10*3/uL (4.8-10.8)
[2023-09-30 12:56] LABS: Valproate 38.3 mcg/mL (50.0-100.0)
[2023-09-30 12:57] LABS: Troponin-I High Sensitivity < 2.7 ng/L (<3.5-35.0)
[2023-09-30 12:57] LABS: Appearance Urine Clear; Color Urine Yellow; Glucose Urine UA Negative (Negative); Leukocyte Esterase Urine Negative (Negative); Nitrite Urine Negative (Negative); PH 6.5 (5.0-9.0); Specific Gravity - Urine 1.015 (1.005-1.025); Urine Blood Negative (Negative); Urine Ketones 15 mg/dL (Negative); Urine Protein Negative (Neg-Trace)
[2023-09-30 12:58] LABS: COVID-19 Test Negative (Negative); IDNOW Serial# 9DB6401D
[2023-09-30 13:03] LABS: Amphetamine Screen Urine Not Detected (Not Detect); Barbiturates, Urine Not Detected (Not Detect); Benzodiazepines Screen Urine Not Detected (Not Detect); Cannabinoid Screen Urine Not Detected (Not Detect); Cocaine Screen Urine Not Detected (Not Detect); Fentanyl, urine Not Detected (Not Detect); Opiate Screen Urine Not Detected (Not Detect); Phencyclidine Screen Urine Not Detected (Not Detect)
[2023-09-30 13:13] LABS: Alanine Aminotransferase 20 U/L (0-40); Alkaline Phosphatase 65 U/L (39-117); Anion Gap 12 (12-20); Aspartate Amino Transferase 13 U/L (5-37); Bilirubin Direct 0.1 mg/dL (0.0-0.5); Bilirubin Total 0.3 mg/dL (0.0-1.0); Blood Urea Nitrogen 15 mg/dL (9-16); Calcium 9.2 mg/dL (8.4-10.2); Carbon Dioxide 27 mmol/L (22-29); Chloride 103 mmol/L (96-108); Creatinine Clr Calc Pharmacy 99.5; Estimated Glomerular Filt Rate > 60; Ethanol < 10 mg/dL; Glucose Random 157 mg/dL (60-115); Magnesium 1.4 mg/dL (1.6-2.6); Potassium 3.9 mmol/L (3.3-5.1); Sodium 138 mmol/L (135-145); Total Protein 6.5 g/dL (6.5-8.0)
[2023-09-30] MEDS: Magnesium Sulfate/H2O 2 GM/50 ML PIGGYBACK IV (14:05)
[2023-09-30] MEDS: iohexoL 350 MG/ML 100 ML INFUS..BTL 60 ML IV (16:32)
[2023-09-30] MEDS: 0.9 % Sodium Chloride 1,000 ML 999 ML IVCONT (17:20)
== END 2023-09-30 20:26 | disposition home or self-care (01) ==
PROVIDERS: Emergency Medicine; Emergency Provider Emergency Medicine; PCP Internal Medicine
DX: E83.42 Hypomagnesemia (principal); R42 Dizziness and giddiness; R60.0 Localized edema; Z11.52 Encounter for screening for COVID-19; E11.9 Type 2 diabetes mellitus without complications; E78.00 Pure hypercholesterolemia, unspecified; Z79.84 Long term (current) use of oral hypoglycemic drugs; Z79.02 Long term (current) use of antithrombotics/antiplatelets; Z79.899 Other long term (current) drug therapy
CPT/HCPCS: 36415; 70450; 70496; 70498; 80048; 80076; 80164; 80307; 81003; 83735; 84484; 85025; 87635; 93005; 93971; 96365; 99284; 99285; J3475; Q9967

== ENCOUNTER → 2023-09-30 11:14 | Outpatient (BNV) | payer BC, SELFPAY | PROVIDERS: Emergency Provider Emergency Medicine; PCP Internal Medicine; Visit Provider Internal Medicine Cardiovascular Disease | DX: R42 Dizziness and giddiness (principal) | CPT/HCPCS: 93010 ==

== ENCOUNTER 2023-10-21 07:41 | Outpatient (REF) | payer BC, SELFPAY ==
[2023-10-21 09:16] LABS: Valproate 43.4 mcg/mL (50.0-100.0)
== END 2023-10-21 07:42 | disposition home or self-care (01) ==
LOC: HO.LAB 07:41
PROVIDERS: PCP Internal Medicine; Visit Provider Registered Nurse
DX: G40.909 Epilepsy, unspecified, not intractable, without status epilepticus (principal); Z79.899 Other long term (current) drug therapy
CPT/HCPCS: 36415; 80164

== ENCOUNTER 2023-10-23 17:05 | Outpatient (REF) | payer BC, SELFPAY ==
--- NOTE | ~2023-10-23 | MR_ITS ---
EXAMINATION: MR BRAIN WITHOUT CONTRAST CLINICAL INFORMATION: 63-year-old with question of stroke or seizure. COMPARISON: 09/30/2023 CT angiogram brain. TECHNIQUE: MRI of the brain was obtained using routine sequences without contrast. FINDINGS: BRAIN VOLUME: Mild generalized diffuse supratentorial brain parenchymal volume loss is noted with a slightly biparietal and right parasylvian predominance. STRUCTURAL: No malformations. BRAIN AND MENINGES: DWI sequence demonstrates no restricted diffusion to suggest acute or subacute cerebral ischemia. There is a 4 mm nonspecific T2 hyperintensity in the deep left centrum semiovale periventricular white matter, which may reflect a tiny focus of chronic ischemic microangiopathy. There is a 7.5 mm focus of ovoid T2 hyperintensity in the left external capsule, which may also reflect a small focus of chronic ischemic microangiopathy. A mildly dilated perivascular space versus remote lacunar infarct is seen in the retrolenticular portion of the left internal capsule. Otherwise, the brain parenchyma is normal in signal intensity. No extra-axial fluid collections, space-occupying process or mass effect are identified. Gradient refocused imaging demonstrates no abnormal susceptibility-weighted signal loss to suggest hemorrhage, hemosiderin staining or abnormal mineralization. VENTRICLES AND SUBARACHNOID SPACES: The ventricular system and subarachnoid spaces are approximately proportional to the degree of parenchymal volume loss, without hydrocephalus. ORBITAL STRUCTURES: The visualized orbital structures are grossly unremarkable within the limitations of the study. VASCULAR: Signal voids are noted in the visualized major intracranial vessels. OSSEOUS STRUCTURES, SINUSES/MASTOIDS, EXTRACRANIAL SOFT TISSUES: Osseous marrow signal intensity appears grossly within normal limits. Suspected possible disc herniation at C3-C4, which may be impinging on the spinal cord. There is mucosal thickening throughout the maxillary, ethmoid and left frontal sinuses. There is a 5 mm probable synovial cyst associated with the left TMJ. MR/MR head/brain wo con IMPRESSION: 1. No acute intracranial process. No evidence for acute or subacute infarct, hemorrhage, extra-axial fluid collection, space-occupying process, mass effect or hydrocephalus. 2. Minimal chronic ischemic microangiopathy in the white matter of the left cerebral hemisphere. 3. Dilated perivascular space versus remote lacunar infarct in the retrolenticular portion of the left internal capsule. 4. Paranasal sinus mucosal inflammatory changes. 5. Possible disc herniation at C3-C4, which may be impinging on the spinal cord. If clinically warranted, MRI of the cervical spine can be done for further assessment.
== END 2023-10-23 17:06 | disposition home or self-care (01) ==
LOC: HO.MRI 17:05
PROVIDERS: PCP Internal Medicine; Visit Provider Registered Nurse
DX: I63.9 Cerebral infarction, unspecified (principal)
CPT/HCPCS: 70551

== ENCOUNTER 2023-10-24 11:35 | Outpatient (REF) | payer BC, SELFPAY ==
[2023-10-24 12:26] LABS: Magnesium 1.6 mg/dL (1.6-2.6)
== END 2023-10-24 11:36 | disposition home or self-care (01) ==
LOC: HO.LNP 11:35
PROVIDERS: Visit Provider Internal Medicine
DX: R79.0 Abnormal level of blood mineral (principal)
CPT/HCPCS: 83735

== ENCOUNTER 2023-10-28 16:08 | Outpatient (REF) | payer BC, SELFPAY ==
[2023-10-28 17:35] LABS: Valproate 56.9 mcg/mL (50.0-100.0)
== END 2023-10-28 16:09 | disposition home or self-care (01) ==
LOC: HO.LAB 16:08
PROVIDERS: PCP Internal Medicine; Visit Provider Psychiatry & Neurology Neurology
DX: G40.909 Epilepsy, unspecified, not intractable, without status epilepticus (principal); Z79.899 Other long term (current) drug therapy
CPT/HCPCS: 36415; 80164

== ENCOUNTER 2023-11-14 08:15 | Outpatient (REF) | payer BC, SELFPAY ==
[2023-11-14 09:12] LABS: Phenytoin Dilantin 17.3 ug/mL (10.0-20.0); Valproate 53.2 mcg/mL (50.0-100.0)
== END 2023-11-14 08:16 | disposition home or self-care (01) ==
LOC: HO.LAB 08:15
PROVIDERS: PCP Internal Medicine; Visit Provider Psychiatry & Neurology Neurology
DX: G40.909 Epilepsy, unspecified, not intractable, without status epilepticus (principal); Z79.899 Other long term (current) drug therapy
CPT/HCPCS: 36415; 80164; 80185

== ENCOUNTER 2023-12-10 13:26 | Outpatient (AMB) | payer BC, SELFPAY ==
[2023-12-10 13:43] VITALS: BMI 37.0
--- NOTE | 2023-12-10 13:43 | A.OFFVIS_ITS ---
Intake VS Expanded 12/10/23 13:43 12/12/23 14:41 Height 5 ft 1 in 5 ft 1 in Weight 195 lb 12.328 oz 196 lb BMI 37.0 37.0 Intake Visit Reasons: T2DM/ CONFIRMED Allergies No Known Allergies Allergy (Unverified 05/05/20 14:42) HPI Nutrition Presentation Details Pt presents for MNT f/u for T2DM. Patient was referred by primary care physician Dr. Medrano Pt reports he is on Januvia 100 mg, basaglar 35 units and metformin 1000 mg Patient reports blood glucoses not at a steady level, varying depending of food choices, patient admits to increase sweet and reports liking varied foods Pt prepares his own meal 9: am B: hashbrown, egg sausages and coffee L: reports snacking on pears/apples/fruits and nuts 5 pm pizza thin personal , veg, regular coke Physical activity: Daily life activities, enjoys fishing etoh---- Smoking: Denies JCK-Gcqkalw-Za.Jeor Equation Height 5 ft 1 in Weight 196 lb Resting Metabolic Rate 1541.73 Calculated Activity Level Sedentary Calories Needed to Maintain Weight 1850.08 Diagnosis Nutrition problem #1 excessive energy intake As related to (etiology) #1 diagnosis and physical inactivity As evidenced by (sign/symptom) #1 est intake more than need Most Recent Diabetes Results: Microalb/Creat Ratio 4.6 ug/mg cr (<30) 05/10/23 Cholesterol 208 mg/dL (<200) H 05/10/23 HDL Cholesterol 38 mg/dL (>40) L 05/10/23 Triglycerides 439 mg/dL (<150) H 05/10/23 Creatinine 0.71 mg/dL (0.5-1.4) 09/30/23 Blood Urea Nitrogen 15 mg/dL (9-16) 09/30/23 Sodium 138 mmol/L (135-145) 09/30/23 Potassium 3.9 mmol/L (3.3-5.1) 09/30/23 Chloride 103 mmol/L (96-108) 09/30/23 Carbon Dioxide 27 mmol/L (22-29) 09/30/23 Calcium 9.2 mg/dL (8.4-10.2) 09/30/23 AST 13 U/L (5-37) 09/30/23 ALT 20 U/L (0-40) 09/30/23 Total Protein 6.5 g/dL (6.5-8.0) 09/30/23 Albumin 4.0 g/dL (3.5-5.0) 09/30/23 [facility] Medical History Elevated cholesterol Seizures Diabetes Surgical History H/O colonoscopy Social History Patient Tobacco Use Status: Never used Tobacco Substance Use Type: Marijuana Assessment & Plan Assessment & Plan (1) T2DM (type 2 diabetes mellitus): Code(s): E11.9 - Type 2 diabetes mellitus without complications Plan: Wt: 89 Kg ( 11/2023 ) Est kcal needs as per MSJ: 1800 (40% carb, 30% protein/fat) Est fluid needs as per 25-30 ml/d: 2700 Est prot per day as per 1 g/kg bw: 89 Recommend fiber intake : 8-10 g per day and gradually increase to 25-28 g per day for women and 35-38 g for men or as tolerated Recommend sodium intake per day : less than 2000 mg Educated patient on: ( R = reviewed V = verbalizes understanding N/R = needs review N/A = not applicable * Food sources of carbohydrate, adequate serving sizes and its role in various health conditions: R * Differences between complex carbohydrates a simple carbohydrates, role of fiber in diet: R * Lean protein sources of foods: R V NR * Differences between types of fats and role in diet (mono on saturated fat fatty acids, saturated fatty acids, trans fats): R V N/R * Food sources of sodium in salt and healthy modifications for heart health in kidney health: R V R/V * Vitamins and minerals: R V N/R * Healthy plate method concept: R * Practicing mindful eating habits: R * Physical activity: Benefits a precaution: R V N/R * Hypoglycemia protocol (rule of 15): R V N/R * Dietary prevention of Hyperglycemia: R Patient Instructions: Follow healthy plate method Drink water in place of juices/soda- choose fruit/veg/herbs infused water Reduce total carb at meal to less than 60 g of carbs following healthyplate method practice mindful eating Coding Level of Care Code Nutr Indiv Intake (60487) Diagnoses T2DM (type 2 diabetes mellitus) E11.9 Time Spent (min) 30
[2023-12-12 14:41] VITALS: BMI 37.0
== END 2023-12-10 14:07 | disposition home or self-care (01) ==
PROVIDERS: PCP Internal Medicine; Visit Provider Dietitian, Registered
DX: E11.9 Type 2 diabetes mellitus without complications (principal)

== ENCOUNTER → 2023-12-10 13:26 | Outpatient (BNVA) | payer BC, SELFPAY | PROVIDERS: PCP Internal Medicine; Visit Provider Dietitian, Registered | DX: E11.9 Type 2 diabetes mellitus without complications (principal); Z71.3 Dietary counseling and surveillance | CPT/HCPCS: 97802 ==

== ENCOUNTER 2024-01-03 11:27 | Outpatient (REF) | payer BC, SELFPAY ==
[2024-01-03 12:06] LABS: Estimated Average Glucose 146 mg/dL; Hemoglobin A1c % 6.7 % (<6.0)
[2024-01-03 12:42] LABS: Alanine Aminotransferase 28 U/L (0-40); Albumin Level 4.1 g/dL (3.5-5.0); Alkaline Phosphatase 65 U/L (39-117); Aspartate Amino Transferase 18 U/L (5-37); Bilirubin Direct < 0.2 mg/dL (0.0-0.5); Bilirubin Total 0.2 mg/dL (0.0-1.0); Cholesterol 165 mg/dL (<200); HDL Cholesterol 48 mg/dL (>40); LDL Cholesterol Calculated 101 mg/dL (<100); Magnesium 1.7 mg/dL (1.6-2.6); Total Protein 6.7 g/dL (6.5-8.0); Triglycerides 81 mg/dL (<150)
[2024-01-03 14:48] LABS: Reflex LDLD? No
== END 2024-01-03 11:28 | disposition home or self-care (01) ==
LOC: HO.LNP 11:27
PROVIDERS: Visit Provider Internal Medicine
DX: E11.9 Type 2 diabetes mellitus without complications (principal); E78.00 Pure hypercholesterolemia, unspecified; R79.0 Abnormal level of blood mineral
CPT/HCPCS: 80061; 80076; 83036; 83735

== ENCOUNTER 2024-02-11 13:09 | Outpatient (AMB) | payer BC, SELFPAY ==
[2024-02-11 13:43] VITALS: BMI 36.0
--- NOTE | 2024-02-11 13:43 | A.OFFVIS_ITS ---
VS Expanded 02/11/24 13:43 Height 5 ft 1 in Weight 190 lb 11.198 oz BMI 36.0 Intake Visit Reasons: T2DM/LVM Allergies No Known Allergies Allergy (Unverified 05/05/20 14:42) Nutrition Presentation Details: Pt presents for MNT f/u for T2DM Pt reports working on diet modifications BS Monitoring Most Recent Diabetes Results: Cholesterol 165 mg/dL (<200) 01/03/24 HDL Cholesterol 48 mg/dL (>40) 01/03/24 Triglycerides 81 mg/dL (<150) 01/03/24 Creatinine 0.71 mg/dL (0.5-1.4) 09/30/23 Blood Urea Nitrogen 15 mg/dL (9-16) 09/30/23 Sodium 138 mmol/L (135-145) 09/30/23 Potassium 3.9 mmol/L (3.3-5.1) 09/30/23 Chloride 103 mmol/L (96-108) 09/30/23 Carbon Dioxide 27 mmol/L (22-29) 09/30/23 Calcium 9.2 mg/dL (8.4-10.2) 09/30/23 AST 18 U/L (5-37) 01/03/24 ALT 28 U/L (0-40) 01/03/24 Total Protein 6.7 g/dL (6.5-8.0) 01/03/24 Albumin 4.1 g/dL (3.5-5.0) 01/03/24 PFSH Medical History Elevated cholesterol Seizures Diabetes Surgical History H/O colonoscopy Social History Patient Tobacco Use Status: Never used Tobacco Substance Use Type: Marijuana Assessment & Plan Assessment & Plan (1) T2DM (type 2 diabetes mellitus): Code(s): E11.9 - Type 2 diabetes mellitus without complications Category: Medical Plan: Wt: 89 Kg ( 11/2023 ), 87 kg (01/2024) Est kcal needs as per MSJ: 1800 (40% carb, 30% protein/fat) Est fluid needs as per 25-30 ml/d: 2700 Est prot per day as per 1 g/kg bw: 89 Recommend fiber intake : 8-10 g per day and gradually increase to 25-28 g per day for women and 35-38 g for men or as tolerated Recommend sodium intake per day : less than 2000 mg Educated patient on: ( R = reviewed V = verbalizes understanding N/R = needs review N/A = not applicable * Food sources of carbohydrate, adequate serving sizes and its role in various health conditions: R * Differences between complex carbohydrates a simple carbohydrates, role of fiber in diet: R * Lean protein sources of foods: R V NR * Differences between types of fats and role in diet (mono on saturated fat fatty acids, saturated fatty acids, trans fats): R * Food sources of sodium in salt and healthy modifications for heart health in kidney health: R V R/V * Vitamins and minerals: R V N/R * Healthy plate method concept: R * Practicing mindful eating habits: R * Physical activity: Benefits a precaution: R V N/R * Hypoglycemia protocol (rule of 15): R V N/R * Dietary prevention of Hyperglycemia: R Patient Instructions: Follow healthy plate method Work on reducing fried foods by removing skin, baking, broiling, use air fryer Keep hydrated by having water withe meals/snacks Coding Level of Care Code Nutr Indiv Subseq (00512) Diagnoses T2DM (type 2 diabetes mellitus) E11.9 Time Spent (min) 30
== END 2024-02-11 14:25 | disposition home or self-care (01) ==
PROVIDERS: PCP Internal Medicine; Visit Provider Dietitian, Registered
DX: E11.9 Type 2 diabetes mellitus without complications (principal)

== ENCOUNTER → 2024-02-11 13:09 | Outpatient (BNVA) | payer BC, SELFPAY | PROVIDERS: PCP Internal Medicine; Visit Provider Dietitian, Registered | DX: E11.9 Type 2 diabetes mellitus without complications (principal); Z71.3 Dietary counseling and surveillance | CPT/HCPCS: 97803 ==

== ENCOUNTER 2024-04-14 13:45 | Outpatient (AMB) | payer BC, SELFPAY ==
[2024-04-14 14:08] VITALS: BMI 36.2
--- NOTE | 2024-04-14 14:08 | A.OFFVIS_ITS ---
VS Expanded 04/14/24 14:08 Height 5 ft 1 in Weight 191 lb 12.835 oz BMI 36.2 Intake Visit Reasons: T2DM/LVM Allergies No Known Allergies Allergy (Unverified 05/05/20 14:42) Nutrition Presentation Details: Pt presents for MNT f/u for T2DM Pt reports doing well with meal planning , however since last month he resumed having sodas/juice , sugary beverages physical activity: reports having stopped his walking routine BS Monitoring Most Recent Diabetes Results: Cholesterol 165 mg/dL (<200) 01/03/24 HDL Cholesterol 48 mg/dL (>40) 01/03/24 Triglycerides 81 mg/dL (<150) 01/03/24 AST 18 U/L (5-37) 01/03/24 ALT 28 U/L (0-40) 01/03/24 Total Protein 6.7 g/dL (6.5-8.0) 01/03/24 Albumin 4.1 g/dL (3.5-5.0) 01/03/24 PFSH Medical History Elevated cholesterol Seizures Diabetes Surgical History H/O colonoscopy Social History Patient Tobacco Use Status: Never used Tobacco Substance Use Type: Marijuana Assessment & Plan Assessment & Plan (1) T2DM (type 2 diabetes mellitus): Code(s): E11.9 - Type 2 diabetes mellitus without complications Category: Medical Plan: A1c : 9.9 % (08/2023) 6.7% 12/2023 Wt: 89 Kg ( 11/2023 ), 87 kg (01/2024), 87 kg (02/09) Est kcal needs as per MSJ: 1800 (40% carb, 30% protein/fat) Est fluid needs as per 25-30 ml/d: 2700 Est prot per day as per 1 g/kg bw: 89 Recommend fiber intake : 8-10 g per day and gradually increase to 25-28 g per day for women and 35-38 g for men or as tolerated Recommend sodium intake per day : less than 2000 mg Educated patient on: ( R = reviewed V = verbalizes understanding N/R = needs review N/A = not applicable * Food sources of carbohydrate, adequate serving sizes and its role in various health conditions: R * Differences between complex carbohydrates a simple carbohydrates, role of fiber in diet: R * Lean protein sources of foods: R * Differences between types of fats and role in diet (mono on saturated fat fatty acids, saturated fatty acids, trans fats): R * Food sources of sodium in salt and healthy modifications for heart health in kidney health: R V R/V * Vitamins and minerals: R V N/R * Healthy plate method concept: R * Practicing mindful eating habits: R * Physical activity: Benefits a precaution: R * Hypoglycemia protocol (rule of 15): R V N/R * Dietary prevention of Hyperglycemia: R Patient Instructions: Resume physical activity goal 150 min per week unless otherwise specified by your doctor Reduce on sugary beverages (soda/juice drinks and similar) choose herb/fruit infused water - see list of options keep a food record for self asessment Coding Level of Care Code Nutr Indiv Subseq (82528) Diagnoses T2DM (type 2 diabetes mellitus) E11.9 Time Spent (min) 25
== END 2024-04-14 14:41 | disposition home or self-care (01) ==
PROVIDERS: PCP Internal Medicine; Visit Provider Dietitian, Registered
DX: E11.9 Type 2 diabetes mellitus without complications (principal)

== ENCOUNTER → 2024-04-14 13:45 | Outpatient (BNVA) | payer BC, SELFPAY | PROVIDERS: PCP Internal Medicine; Visit Provider Dietitian, Registered | DX: E11.9 Type 2 diabetes mellitus without complications (principal); Z71.3 Dietary counseling and surveillance | CPT/HCPCS: 97803 ==

== ENCOUNTER 2024-06-09 12:02 | Outpatient (REF) | payer BC, SELFPAY ==
[2024-06-09 12:11] LABS: MANUAL DIFF FLAG NO
[2024-06-09 12:38] LABS: Basophils Absolute Auto 0.1 X10*3/uL (0.0-0.2); Basophils Percent Auto 1.1 % (0-2); Eosinophils Absolute Auto 0.5 X10*3/uL (0.0-0.4); Eosinophils Percent Auto 7.6 % (0-4); Hematocrit 38.8 % (42.0-52.0); Hemoglobin 13.6 g/dl (14.0-18.0); Imm Gran Abs Auto 0.05 X10*3/uL (0.00-0.03); Imm Gran Pct Auto 0.8 % (0.0-0.4); Lymphocytes Absolute Auto 2.8 X10*3/uL (1.2-4.9); Lymphocytes Percent Auto 44.7 % (20-40); Mean Corpuscular HGB Conc 35.1 g/dl (31.0-36.0); Mean Corpuscular Hemoglobin 31.7 pg (27.0-33.0); Mean Corpuscular Volume 90.4 fL (80.0-98.0); Mean Platelet Volume 12.3 fL (9.4-12.4); Monocytes Absolute Auto 0.6 X10*3/uL (0.1-1.2); Monocytes Percent Auto 9.9 % (2-11); Neutrophils Absolute Auto 2.2 x10*3/uL (2.0-8.3); Neutrophils Percent Auto 35.9 % (45-73); Platelet Count 142 X10*3/uL (160-400); Red Blood Count 4.29 X10*6/uL (4.60-5.80); Red Cell Distribution Width 13.2 % (11.0-16.0); White Blood Count 6.2 X10*3/uL (4.8-10.8)
[2024-06-09 12:48] LABS: Estimated Average Glucose 192 mg/dL; Hemoglobin A1c % 8.3 % (<6.0); Total Hemoglobin (HGBA1C) 3310.6822 umol/L
[2024-06-09 12:52] LABS: Alanine Aminotransferase 42 U/L (0-40); Albumin Level 4.1 g/dL (3.5-5.0); Alkaline Phosphatase 71 U/L (39-117); Anion Gap 10 (12-20); Aspartate Amino Transferase 24 U/L (5-37); Bilirubin Total 0.3 mg/dL (0.0-1.0); Blood Urea Nitrogen 9 mg/dL (9-16); Calcium 9.1 mg/dL (8.4-10.2); Carbon Dioxide 29 mmol/L (22-29); Chloride 107 mmol/L (96-108); Cholesterol 197 mg/dL (<200); Estimated Glomerular Filt Rate > 60; Glucose Fasting 142 mg/dL (60-99); HDL Cholesterol 47 mg/dL (>40); LDL Cholesterol Calculated 122 mg/dL (<100); Sodium 142 mmol/L (135-145); Total Protein 6.6 g/dL (6.5-8.0); Triglycerides 142 mg/dL (<150)
[2024-06-09 13:06] LABS: PSA,Total (Free>4and<10) 0.57 ng/mL (0.00-4.00)
[2024-06-09 13:07] LABS: Vitamin D 25-OH Total 52.4 ng/mL (>30)
== END 2024-06-09 12:03 | disposition home or self-care (01) ==
LOC: HO.LNP 12:02
PROVIDERS: Visit Provider Internal Medicine
DX: Z00.00 Encounter for general adult medical examination without abnormal findings (principal); E11.9 Type 2 diabetes mellitus without complications; E78.00 Pure hypercholesterolemia, unspecified; E78.2 Mixed hyperlipidemia; D72.820 Lymphocytosis (symptomatic); E55.9 Vitamin D deficiency, unspecified; Z12.5 Encounter for screening for malignant neoplasm of prostate
CPT/HCPCS: 80053; 80061; 82306; 83036; 84153; 85025

== ENCOUNTER 2024-06-16 15:59 | Outpatient (REF) | payer BC, SELFPAY ==
[2024-06-16 16:07] LABS: Appearance Urine Clear; Color Urine Yellow; Glucose Urine UA >=1000 mg/dL (Negative); Leukocyte Esterase Urine Negative (Negative); Nitrite Urine Negative (Negative); PH 5.5 (5.0-9.0); Specific Gravity - Urine >= 1.030 (1.005-1.025); UMIC TRIGGER UACC YES; Urine Blood Negative (Negative); Urine Ketones 15 mg/dL (Negative); Urine Protein Negative (Neg-Trace)
[2024-06-16 16:12] LABS: Bacteria Urine None Seen (None Seen); Hyaline Casts Urine 0-2 /LPF (0-2); RBC Urine 0-2 /HPF (0-2); Squamous Epithelial Cell Urine 0-2 /HPF (0-2); WBC Urine 0-5 /HPF (0-5)
[2024-06-16 16:44] LABS: Creatinine Urine 126.96 mg/dL; Microalbum/Creatinine Ratio Ur 6.3 ug/mg cr (<30)
== END 2024-06-16 16:00 | disposition home or self-care (01) ==
LOC: HO.LNP 15:59
PROVIDERS: Visit Provider Internal Medicine
DX: E11.9 Type 2 diabetes mellitus without complications (principal); E78.00 Pure hypercholesterolemia, unspecified
CPT/HCPCS: 81001; 82043; 82570

== ENCOUNTER 2024-07-15 09:26 | Outpatient (AMB) | payer BC, SELFPAY ==
[2024-07-15 09:35] VITALS: BMI 36.7
--- NOTE | 2024-07-15 09:35 | A.OFFVIS_ITS ---
VS Expanded 07/15/24 09:35 Height 5 ft 1 in Weight 194 lb 3.636 oz BMI 36.7 Intake Visit Reasons: T2DM/LVM Allergies No Known Allergies Allergy (Unverified 05/05/20 14:42) Nutrition Presentation Details: Pt presents for MNT f/u T2DM Pt reports having stopped monitoring and monitoring food intake , reports increasing in sugary beverages. Pt verbalizes understanding relationship of food to BG and heart health. Pt verbalizes interest in resuming monitoring and improving glucose control BS Monitoring Most Recent Diabetes Results: Microalb/Creat Ratio 6.3 ug/mg cr (<30) 06/16/24 Cholesterol 197 mg/dL (<200) 06/09/24 HDL Cholesterol 47 mg/dL (>40) 06/09/24 Triglycerides 142 mg/dL (<150) 06/09/24 Creatinine 0.78 mg/dL (0.5-1.4) 06/09/24 Blood Urea Nitrogen 9 mg/dL (9-16) 06/09/24 Sodium 142 mmol/L (135-145) 06/09/24 Potassium 4.0 mmol/L (3.3-5.1) 06/09/24 Chloride 107 mmol/L (96-108) 06/09/24 Carbon Dioxide 29 mmol/L (22-29) 06/09/24 Calcium 9.1 mg/dL (8.4-10.2) 06/09/24 AST 24 U/L (5-37) 06/09/24 ALT 42 U/L (0-40) H 06/09/24 Total Protein 6.6 g/dL (6.5-8.0) 06/09/24 Albumin 4.1 g/dL (3.5-5.0) 06/09/24 [facility] Medical History Elevated cholesterol Seizures Diabetes Surgical History H/O colonoscopy Social History Patient Tobacco Use Status: Never used Tobacco Substance Use Type: Marijuana Assessment & Plan Assessment & Plan (1) T2DM (type 2 diabetes mellitus): Code(s): E11.9 - Type 2 diabetes mellitus without complications Category: Medical Plan: A1c : 9.9 % (08/2023) 6.7% 12/2023, 8.3% (06/11) Wt: 89 Kg ( 11/2023 ), 87 kg (01/2024), 87 kg (02/09) Est kcal needs as per MSJ: 1800 (40% carb, 30% protein/fat) Est fluid needs as per 25-30 ml/d: 2700 Est prot per day as per 1 g/kg bw: 89 Recommend fiber intake : 8-10 g per day and gradually increase to 25-28 g per day for women and 35-38 g for men or as tolerated Recommend sodium intake per day : less than 2000 mg Educated patient on: ( R = reviewed V = verbalizes understanding N/R = needs review N/A = not applicable * Food sources of carbohydrate, adequate serving sizes and its role in various health conditions: R * Differences between complex carbohydrates a simple carbohydrates, role of fiber in diet: R * Lean protein sources of foods: R * Differences between types of fats and role in diet (mono on saturated fat fatty acids, saturated fatty acids, trans fats): R * Food sources of sodium in salt and healthy modifications for heart health in kidney health: R V R/V * Vitamins and minerals: R V N/R * Healthy plate method concept: R * Practicing mindful eating habits: R * Physical activity: Benefits a precaution: R * Hypoglycemia protocol (rule of 15): R V N/R * Dietary prevention of Hyperglycemia: R Patient Instructions: Resume choosing low sugar beverages (dilute juices with water, choose fruit/herb infused water, ok diet beverages for flavor Have yogurt with granola as bedtime snack , reducing on pastries Practice mindful eating mOnitor blood sugar for self assessment Coding Level of Care Code Nutr Indiv Subseq (23610) Diagnoses T2DM (type 2 diabetes mellitus) E11.9 Time Spent (min) 30
== END 2024-07-15 10:04 | disposition home or self-care (01) ==
PROVIDERS: PCP Internal Medicine; Visit Provider Dietitian, Registered
DX: E11.9 Type 2 diabetes mellitus without complications (principal)

== ENCOUNTER → 2024-07-15 09:26 | Outpatient (BNVA) | payer BC, SELFPAY | PROVIDERS: PCP Internal Medicine; Visit Provider Dietitian, Registered | DX: E11.9 Type 2 diabetes mellitus without complications (principal); Z71.3 Dietary counseling and surveillance | CPT/HCPCS: 97803 ==

== ENCOUNTER 2024-10-15 10:35 | Outpatient (AMB) | payer BC, SELFPAY ==
[2024-10-15 10:38] VITALS: BMI 37.9
--- NOTE | 2024-10-15 10:38 | A.OFFVIS_ITS ---
VS Expanded 10/15/24 10:38 Height 5 ft 1 in Weight 200 lb 9.93 oz BMI 37.9 Intake Visit Reasons: t2dm Allergies No Known Allergies Allergy (Unverified 05/05/20 14:42) Nutrition Presentation Details: Pt presents for MNT f/u for T2DM Pt reports keeping sedentary Pt admits to increasing on starches in the evening due to lack of physical activity Previously a fam member was assisting with encouragement with meals portions Social activities - none, Pt is aware of [facility] activities- agrees to look into these BS Monitoring Most Recent Diabetes Results: Microalb/Creat Ratio 6.3 ug/mg cr (<30) 06/16/24 Cholesterol 197 mg/dL (<200) 06/09/24 HDL Cholesterol 47 mg/dL (>40) 06/09/24 Triglycerides 142 mg/dL (<150) 06/09/24 Creatinine 0.78 mg/dL (0.5-1.4) 06/09/24 Blood Urea Nitrogen 9 mg/dL (9-16) 06/09/24 Sodium 142 mmol/L (135-145) 06/09/24 Potassium 4.0 mmol/L (3.3-5.1) 06/09/24 Chloride 107 mmol/L (96-108) 06/09/24 Carbon Dioxide 29 mmol/L (22-29) 06/09/24 Calcium 9.1 mg/dL (8.4-10.2) 06/09/24 AST 24 U/L (5-37) 06/09/24 ALT 42 U/L (0-40) H 06/09/24 Total Protein 6.6 g/dL (6.5-8.0) 06/09/24 Albumin 4.1 g/dL (3.5-5.0) 06/09/24 PFSH Medical History Elevated cholesterol Seizures Diabetes Surgical History H/O colonoscopy Social History Patient Tobacco Use Status: Never used Tobacco Substance Use Type: Marijuana Assessment & Plan Assessment & Plan (1) T2DM (type 2 diabetes mellitus): Code(s): E11.9 - Type 2 diabetes mellitus without complications Category: Medical Plan: A1c : 9.9 % (08/2023) 6.7% 12/2023, 8.3% (06/11) Wt: 89 Kg ( 11/2023 ), 87 kg (01/2024), 87 kg (02/09) Est kcal needs as per MSJ: 1800 (40% carb, 30% protein/fat) Est fluid needs as per 25-30 ml/d: 2700 Est prot per day as per 1 g/kg bw: 89 Recommend fiber intake : 8-10 g per day and gradually increase to 25-28 g per day for women and 35-38 g for men or as tolerated Recommend sodium intake per day : less than 2000 mg Educated patient on: ( R = reviewed V = verbalizes understanding N/R = needs review N/A = not applicable * Food sources of carbohydrate, adequate serving sizes and its role in various health conditions: R * Differences between complex carbohydrates a simple carbohydrates, role of fiber in diet: R * Lean protein sources of foods: R * Differences between types of fats and role in diet (mono on saturated fat fatty acids, saturated fatty acids, trans fats): R * Food sources of sodium in salt and healthy modifications for heart health in kidney health: R V R/V * Vitamins and minerals: R V N/R * Healthy plate method concept: R * Practicing mindful eating habits: R * Physical activity: Benefits a precaution: R * Hypoglycemia protocol (rule of 15): R V N/R * Dietary prevention of Hyperglycemia: R Patient Instructions: Keep physically active as able have sandwich (2 slices of whole wheat bread) and lettuce tomato as your lunch in place of pastries Dinner follow: healthy plate method, work having less than than 60 g of carbs (1/2 cup potato, 1/2 cup peas, 3-4 oz of chicken, 1 cup of milk and 1 c of green beans) Keep hydrated by having water with meals and whenever thirsty, read food labels choosing other beverages with no sugar added participate in [facility] activities Coding Level of Care Code Nutr Indiv Subseq (89923) Diagnoses T2DM (type 2 diabetes mellitus) E11.9 Time Spent (min) 30
--- OUTSIDE RECORDS SUMMARY | 2024-10-15 12:26 | XMS_ITS ---
Author Organization Kun Medrano MD Address [address] [place] [phone] Care Team Providers Care Keyboard Operator Name Role Phone Kun Medrano Primary Care Provider REASON FOR VISIT new med Encounters Encounter Location Date Provider Diagnosis Kun Medrano MD [address] [place] [address] [address] [place] [phone] 10/05/2024 Kun Medrano Plan Of Treatment Next Appt Details Provider Name:Kun solitario, 12/03/2024 07:15:00 AM, [address] [place] [address], [address] [place] [address], [phone], Provider Name:Kun solitario, 12/10/2024 02:00:00 PM, [address] [place] [address], [address], [phone], Provider Name:Kun solitario, 06/11/2025 08:15:00 AM, [address] [place] [address], [address], [phone], Provider Name:Kun solitario, 06/18/2025 02:30:00 PM, [address] [place] [address] Drive, [address], [place], [phone], Progress Notes * Johnny WYLIE ADOB: [birth year] (64 yo M)Acc No.[id number]:10/05/2024 Patient:?Johnny WYLIE :1960???Age:64 Y???Sex:Male Address:[address] [place], [place] [address] [address] * true * Date:? Generated for Alan pina/Keaton/eTransmitting on:?10/15/2024 12:26 PM EST
--- OUTSIDE RECORDS SUMMARY | 2024-10-15 12:26 | XMS_ITS ---
Author Organization Kun Medrano MD Address [address] [place] [phone] Care Team Providers Care Eligibility Examiner Name Role Phone Kun Medrano Primary Care Provider REASON FOR VISIT meds Encounters Encounter Location Date Provider Diagnosis Kun Medrano MD [address] [place] [address] [address] [place] [phone] 09/18/2024 Kun Medrano Plan Of Treatment Next Appt Details Provider Name:Kun solitario, 12/03/2024 07:15:00 AM, [address] [place] [address], [address] [place] [address], [phone], Provider Name:Kun solitario, 12/10/2024 02:00:00 PM, [address] [place] [address], [address], [phone], Provider Name:Kun solitario, 06/11/2025 08:15:00 AM, [address] [place] [address], [address], [phone], Provider Name:Kun solitario, 06/18/2025 02:30:00 PM, [address], [address], [place], [phone], Progress Notes * Johnny WYLIE ADOB: [birth year] (64 yo M)Acc No.[id number]:09/18/2024 Patient:?Johnny WYLIE :1960???Age:64 Y???Sex:Male Address:[address] [place], [place] [address] [address] * true * Date:? Generated for Alan pina/Keaton/eTransmitting on:?10/15/2024 12:26 PM EST
--- OUTSIDE RECORDS SUMMARY | 2024-10-15 12:26 | XMS_ITS | Patient Health Record ---
Author Organization [facility] Address [address] [place] [address] Care Team Providers Care Rehabilitation Teacher Name Role Phone Mitchell HUNG, Kun Primary Care Provider Bernadette Pruitt Unavailable [phone] ALLERGIES No Known Allergies REASON FOR REFERRAL No Information MEDICATIONS Medication SIG (Take, Route, Frequency, Duration) Notes Start Date End Date Status Baby Aspirin Active Depakote Active Januvia Active Dilantin 100 MG 1 capsule Orally isabel ry 12 hrs for 30 day(s) Active Rosuvastatin Calcium 40 MG Oral for 30 Active Furosemide 20 MG Oral for 30 A ctive metFORMIN HCl 500 MG Oral for 60 Active IMMUNIZATIONS Vaccine Route Administration Date Status Comme nts Influenza Unknown 04/19/2020 Administered SOCIAL HISTORY Tobacco Use: Social History Observation Description Date Details (start date - stop date) Never Smoker NA - NA Sex Assigned At : Social History Observation Description Sex Assigned At Unknown Tobacco Use/Smoking Question Answer Notes Patient is a nonsmoker Alcohol Screen Question Answer Notes Did you have a drink containing alcohol in the p ast year? 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 screening colonoscopy in 01/2011 Hyperlipidemia Denies LA,CVA,Lung disease,renal disease Surgical History Surgery Date(Month/Year) Benign mole removal from back
--- OUTSIDE RECORDS SUMMARY | 2024-10-15 12:27 | XMS_ITS ---
Author Organization Kun Medrano MD Address [address] [place] [phone] Care Team Providers Care Flower Buncher Or Picker Name Role Phone Kun Medrano Primary Care Provider [phone] REASON FOR VISIT RE:meds Encounters Encounter Location Date Provider Diagnosis Kun Medrano MD [address] [place] [address] [address] [place] [phone] 09/18/2024 Kun Medrano Plan Of Treatment Next Appt Details Provider Name:Kun solitario, 12/03/2024 07:15:00 AM, [address] [place] [address], [address] [place] [address], [phone], Provider Name:Kun solitario, 12/10/2024 02:00:00 PM, [address] [place] [address], [address], [phone], Provider Name:Kun solitario, 06/11/2025 08:15:00 AM, [address] [place] [address], [address], [phone], Provider Name:Kun solitario, 06/18/2025 02:30:00 PM, [address] [facility] [address], [address], [place], [phone], Progress Notes * Johnny WYLIE ADOB: [birth year] (64 yo M)Acc No.[id number]:09/18/2024 Patient:?Johnny WYLIE :1960???Age:64 Y???Sex:Male Address:[address] [place], [place] [address] [address] * true * Date:? Generated for Alan pina/Keaton/eTransmitting on:?10/15/2024 12:26 PM EST
== END 2024-10-15 11:12 | disposition home or self-care (01) ==
PROVIDERS: PCP Internal Medicine; Visit Provider Dietitian, Registered
DX: E11.9 Type 2 diabetes mellitus without complications (principal)

== ENCOUNTER → 2024-10-15 10:35 | Outpatient (BNVA) | payer BC, SELFPAY | PROVIDERS: PCP Internal Medicine; Visit Provider Dietitian, Registered | DX: E11.9 Type 2 diabetes mellitus without complications (principal); Z71.3 Dietary counseling and surveillance | CPT/HCPCS: 97803 ==

== ENCOUNTER 2024-10-26 10:33 | Outpatient (REF) | payer BC, SELFPAY ==
[2024-10-26 11:03] LABS: Blood Urea Nitrogen 12 mg/dL (9-16); Estimated Glomerular Filt Rate > 60
== END 2024-10-26 10:34 | disposition home or self-care (01) ==
LOC: HO.LNP 10:33
PROVIDERS: Visit Provider Internal Medicine
DX: Z01.812 Encounter for preprocedural laboratory examination (principal)
CPT/HCPCS: 82565; 84520

== ENCOUNTER 2024-12-03 09:52 | Outpatient (REF) | payer BC, SELFPAY ==
[2024-12-03 10:29] LABS: Estimated Average Glucose 183 mg/dL; Hemoglobin A1C 225.7238 umol/L; Total Hemoglobin (HGBA1C) 3509.2849 umol/L
[2024-12-03 10:50] LABS: Alanine Aminotransferase 33 U/L (0-40); Albumin Level 4.1 g/dL (3.5-5.0); Aspartate Amino Transferase 25 U/L (5-37); Bilirubin Direct 0.1 mg/dL (0.0-0.5); Bilirubin Total 0.4 mg/dL (0.0-1.0); Cholesterol 182 mg/dL (<200); Glucose Fasting 194 mg/dL (60-99); HDL Cholesterol 36 mg/dL (>40); LDL Cholesterol Calculated 100 mg/dL (<100); Total Protein 6.6 g/dL (6.5-8.0); Triglycerides 231 mg/dL (<150)
[2024-12-03 11:01] LABS: Alkaline Phosphatase 68 U/L (39-117)
--- OUTSIDE RECORDS SUMMARY | 2024-12-03 11:29 | XMS_ITS ---
Author Organization Kun Medrano MD Address [address] [place] [phone] Care Team Providers Care Financial Cost Analyst Name Role Phone Kun Medrano Primary Care Provider REASON FOR VISIT ct scan Encounters Encounter Location Date Provider Diagnosis Kun Medrano MD 10 [facility] [address] [place] [phone] 11/02/2024 Kun Medrano Plan Of Treatment Next Appt Details Provider Name:Kun solitario, 12/10/2024 02:00:00 PM, [address] [place] [address], [address] [place] [address], [phone], Provider Name:Kun Olivares ier, 06/11/2025 08:15:00 AM, [address] [place] [address], [address], [phone], Provider Name:Kun solitario, 06/18/2025 02:30:00 PM, [address] [place] [address], [address], [phone], Progress Notes * Johnny WYLIE ADOB: [birth year] (64 yo M)Acc No.[id number]:11/02/2024 Patient:?TAMELAJohnny MONDRAGON Erin :1960???Age:64 Y???Sex:Male Address:[address] [place] [address] [place] [address] * true * Date:? Generated for Alan pina/Keaton/eTransmitting on:?12/03/2024 11:29 AM EDT
--- OUTSIDE RECORDS SUMMARY | 2024-12-03 11:29 | XMS_ITS | Patient Health Record ---
Author Organization [facility] Address [address] [place] [address] Care Team Providers Care Fur Dry Cleaner Name Role Phone Mitchell HUNG, Kun Primary Care Provider Bernadette Pruitt Unavailable [phone] Allergies No Known Allergies Reason For Referral No Information Medications Medication SIG (Take, Route, Frequency, Duration) Notes Start Date End Date Status Baby Aspirin Active Depakote Active Januvia Active Dilantin 100 MG 1 capsule Orally isabel ry 12 hrs for 30 day(s) Active Rosuvastatin Calcium 40 MG Oral for 30 Active Furosemide 20 MG Oral for 30 A ctive metFORMIN HCl 500 MG Oral for 60 Active Immunizations Vaccine Route Administration Date Status Comme nts Influenza Unknown 04/19/2020 Administered Social History Tobacco Use: Social History Observation Description Date Details (start date - stop date) Never Smoker NA - NA Tobacco Use/Smoking Question Answer Notes Patient is a nonsmoker Alcohol Screen Question Answer Notes Did you have a drink containing alcohol in the p ast year? No Points 0 Interpretation Negative Section Notes: Nonsmoker; no sig alcohol Problems Problem Type SNOMED Code ICD Code Onset Dates Problem Status W/U Status Risk Notes Problem [id number] Encounter for screening for malignant neoplasm of colon (Z12.11) Active confirmed Problem 936782354644463 Preprocedural examination (Z01.818) Active confirmed Problem 292292159800644 Aspirin long-term use (Z79.82) Active confirmed Problem Diverticular disease of colon (044736183) Diverticular disease of colon (K57.30) Active confirmed Plan Of Treatment Future Test Test Name Order Date COLONOSCOPY 02/28/2021 Insurance Providers Payer Name Payer Address Payer Phone Subscriber Number Group Number Insured Name Patient Relationship to Insured Coverage Start Date Coverage End Date [facility] [address] [place], [place] [id number] BERNADETTE ORTIZ Self - patient is the insured Medical (General) History Medical History History ICD Code NIDDM Seizures Edema Neg. screening colonoscopy in 01/2011 Hyperlipidemia Denies [place],CVA,Lung disease,renal disease Surgical History Surgery Date(Month/Year) Benign mole removal from back
--- OUTSIDE RECORDS SUMMARY | 2024-12-03 11:30 | XMS_ITS ---
Author Organization Knu Medrano MD Address [address] [place] [phone] Care Team Providers Care Supervisor Slashing Department Name Role Phone Kun Medrano Primary Care Provider Results Component Value Reference Range Notes Hemoglobin A1c (Not yet revi ewed by provider) Interpretation: Performing Lab:[facility], [address] [place] [id number] Notes/Report: Hemoglobin A1c % 8.0 <6.0 % Hemoglobin A1C Reference Range Adults: 4.8 - 6.0 % Non diabetic: < 6.0 % Goal: < 7.0 % Additional Action Suggested: > 8.0 % Note: Hemoglobin A1c results are invalid for patients with abnormal amounts of HbF. Blood transfusions may impact the HbA1c concentration in the patient sample. Estimated Average Glucose 183 eAG = Estimated average glucose which is %A1C expressed as average glucose, using the formula of the U2G-Jvbpxla Average Glucose study (ADAG), Diabetes Care, Vol.31,#8, Mar. 2007 REASON FOR VISIT fasting lipids Encounters Encounter Location Date Provider Diagnosis Kun Medrano MD [address] [place] [phone] 12/03/2024 Kun Medrano Type 2 diabetes belinda itus without complication E11.9 and Pure hypercholesterolemia E78.00 Assessments Encounter Date Diagnosis (ICD Code) Assessment Notes Treatment Notes Treatment Clinical Notes Section Notes 12/03/2024 Type 2 diabetes belinda itus without complication (ICD-10 - E11.9) 12/03/2024 Pure hypercholesterolemia (ICD-10 - E78.00) Plan Of Treatment Pending Test Test Name Order Date Liver Panel 12/03/2024 Glucose Fasting 12/03/2024 Lipid Panel with Reflex 12/03/2024 Hemoglobin A1c 12/03/2024 Next Appt Details Provider Name:Kun Olivares ier, 12/10/2024 02:00:00 PM, [address] [place] [address], [address], [place], [place], [phone], Provider Name:Kun Olivares ier, 06/11/2025 08:15:00 AM, [address] [place] [address], Suite [facility], [place], [place], [phone], Provider Name:Kun Olivares ier, 06/18/2025 02:30:00 PM, [address] [place] [address], [address], [place], [place], [phone], Progress Notes * Johnny WYLIE ADOB: [birth year] (64 yo M)Acc No.[id number]:12/03/2024 Progress Note Patient:?Johnny WYLIE Provider:?Kun Medrano MD :1960???Age:64 Y???Sex:Male Danny e:12/03/2024 Address:[address] [place] [address] Subjective: * Chief Complaints: * ???1. Fasting lipids. * Medical History:? Objective: * Vitals:? Assessment: * Assessment: 1.?Type 2 diabetes mellitus without complication - E11.9 (Primary)???2.?Pure hypercholesterolemia - E78.00??? Plan: * Treatment: 2.?Pure hypercholesterolemia ?LAB: Liver Panel ?LAB: Glucose Fasting ?LAB: Lipid Panel with Reflex ?LAB: Hemoglobin A1c (Collection Date & Time - 12/03/2024 08:15 AM) * Procedure Codes:?68175 VENIP UNCT, ROUTINE* * * The named appointment provid er may or may not be the originator of this progress note, and it is not deemed complete until electronically signed by the appointment provider. Sign off status: Pending * Provider:?Kun Medrano MD Date:?0 12/03/2024 Generated for Alan pina/Keaton/Roxieitting on:?12/03/2024 11:29 AM EDT
[2024-12-03 12:59] LABS: Reflex LDLD? No
== END 2024-12-03 09:53 | disposition home or self-care (01) ==
LOC: HO.LNP 09:52
PROVIDERS: Visit Provider Internal Medicine
DX: E11.9 Type 2 diabetes mellitus without complications (principal); E78.00 Pure hypercholesterolemia, unspecified
CPT/HCPCS: 80061; 80076; 82947; 83036

== ENCOUNTER 2025-01-12 10:51 | Outpatient (AMB) | payer BC, SELFPAY ==
[2025-01-12 11:17] VITALS: BMI 38.2
--- NOTE | 2025-01-12 11:17 | A.OFFVIS_ITS ---
VS Expanded 01/12/25 11:17 Height 5 ft 1 in Weight 202 lb 2.622 oz BMI 38.2 Intake Visit Reasons: T2DM Allergies No Known Allergies Allergy (Unverified 05/05/20 14:42) Nutrition Presentation Details: Pt presents for MNT f/u for T2DM Pt reports taking daily MVI On basaglar 50 units /day , saw PCP 3 weeks ago\ per CGM record: 14 d bg average at 204 mg/dl, 31% within target, 56% above 180 , 13% above 240 mg/dl, no hypoglycemia Admits to increasing on snacks/sweets/similar. oatmeal with milk, fruit lunch sand dinner chickpeas /rice/chicken or fish denies alcohol intake BS Monitoring Most Recent Diabetes Results: Microalb/Creat Ratio 6.3 ug/mg cr (<30) 06/16/24 Cholesterol 182 mg/dL (<200) 12/03/24 HDL Cholesterol 36 mg/dL (>40) L 12/03/24 Triglycerides 231 mg/dL (<150) H 12/03/24 Creatinine 0.67 mg/dL (0.5-1.4) 10/26/24 Blood Urea Nitrogen 12 mg/dL (9-16) 10/26/24 Sodium 142 mmol/L (135-145) 06/09/24 Potassium 4.0 mmol/L (3.3-5.1) 06/09/24 Chloride 107 mmol/L (96-108) 06/09/24 Carbon Dioxide 29 mmol/L (22-29) 06/09/24 Calcium 9.1 mg/dL (8.4-10.2) 06/09/24 AST 25 U/L (5-37) 12/03/24 ALT 33 U/L (0-40) 12/03/24 Total Protein 6.6 g/dL (6.5-8.0) 12/03/24 Albumin 4.1 g/dL (3.5-5.0) 12/03/24 [facility] Medical History Elevated cholesterol Seizures Diabetes Surgical History H/O colonoscopy Social History Patient Tobacco Use Status: Never used Tobacco Substance Use Type: Marijuana Assessment & Plan Assessment & Plan (1) T2DM (type 2 diabetes mellitus): Code(s): E11.9 - Type 2 diabetes mellitus without complications Category: Medical Plan: A1c : 9.9 % (08/2023) 6.7% 12/2023, 8.3% (06/11). 12/11 (8.0%) Wt: 89 Kg ( 11/2023 ), 87 kg (01/2024), 87 kg (02/09), 92kg (01/10) Est kcal needs as per MSJ: 1800 (40% carb, 30% protein/fat) Est fluid needs as per 25-30 ml/d: 2700 Est prot per day as per 1 g/kg bw: 89 Recommend fiber intake : 8-10 g per day and gradually increase to 25-28 g per day for women and 35-38 g for men or as tolerated Recommend sodium intake per day : less than 2000 mg Educated patient on: ( R = reviewed V = verbalizes understanding N/R = needs review N/A = not applicable * Food sources of carbohydrate, adequate serving sizes and its role in various health conditions: R * Differences between complex carbohydrates a simple carbohydrates, role of fiber in diet: R * Lean protein sources of foods: R * Differences between types of fats and role in diet (mono on saturated fat fatty acids, saturated fatty acids, trans fats): R * Food sources of sodium in salt and healthy modifications for heart health in kidney health: R V R/V * Vitamins and minerals: R V N/R * Healthy plate method concept: R * Practicing mindful eating habits: R * Physical activity: Benefits a precaution: R * Hypoglycemia protocol (rule of 15): R V N/R * Dietary prevention of Hyperglycemia: R Patient Instructions: walk 30 minutes/day , carry water and glucose tabs or fruit cup in case of low blood glucose. follow rule of 15 if having low blood glucose (less than 70 mg/dl ) have yogurt as midafternoon snack in place of pastry 4 times a week Coding Level of Care Code Nutr Indiv Subseq (43669) Diagnoses T2DM (type 2 diabetes mellitus) E11.9 Time Spent (min) 30
--- OUTSIDE RECORDS SUMMARY | 2025-01-12 11:41 | XMS_ITS | Patient Health Record ---
Author Organization [facility] Address [address] [place] [address] Care Team Providers Care High School Social Science Teacher Name Role Phone Mitchell HUNG, Kun Primary Care Provider Bernadette Pruitt Unavailable [phone] Allergies No Known Allergies Reason For Referral [...] Problem Status W/U Status Risk Notes Problem 169714319 Encounter for screening for malignant neoplasm of colon (Z12.11) Active confirmed Problem 763145714850228 Preprocedural examination (Z01.818) Active confirmed Problem 069066047277173 Aspirin long-ter m use (Z79.82) Active confirmed Problem Diverticular disease of colon (K57.30) Active confirmed Plan Of Treatment Future Test Test Name Order Date COLONOSCOPY 02/28/2021 Insurance Providers Payer Name Payer Address Payer Phone Subscriber Number Group Number Insured Name Patient Relationship to Insured Coverage Start Date Coverage End Date [facility] [address] [place], [place] [id number] BERNADETTE ORTIZ Self - patient is the insured Medical (General) History Medical History History ICD Code NIDDM Seizures Edema Neg. screening colonoscopy in 01/2011 Hyperlipidemia Denies [place],CVA,Lung disease,renal disease Surgical History Surgery Date(Month/Year) Benign mole removal from back
== END 2025-01-12 11:59 | disposition home or self-care (01) ==
LOC: HO.ENCR 10:52
PROVIDERS: PCP Internal Medicine; Visit Provider Dietitian, Registered
DX: E11.9 Type 2 diabetes mellitus without complications (principal)

== ENCOUNTER → 2025-01-12 10:51 | Outpatient (BNVA) | payer BC, SELFPAY | PROVIDERS: PCP Internal Medicine; Visit Provider Dietitian, Registered | DX: E11.9 Type 2 diabetes mellitus without complications (principal); E78.00 Pure hypercholesterolemia, unspecified; Z71.3 Dietary counseling and surveillance | CPT/HCPCS: 97803 ==

== ENCOUNTER 2025-02-26 12:04 | Outpatient (AMB) | payer BC, SELFPAY ==
--- OUTSIDE RECORDS SUMMARY | 2025-02-26 05:03 | XMS_ITS ---
Author Organization Kun Medrano MD Address [address] [place] [phone] Care Team Providers Care Hand Booked Folder And Stitcher Name Role Phone Kun Medrano Primary Care Provider REASON FOR VISIT left foot Encounters Encounter Location Date Provider Diagnosis Kun Medrano MD 10 [facility] [address] [place] [phone] 02/26/2025 Kun Medrano Plan Of Treatment Next Appt Details Provider Name:Kun solitario, 03/18/2025 10:15:00 AM, [address] [place] [address], [address] [place] [address], [phone], Provider Name:Kun Olivares ier, 06/11/2025 08:15:00 AM, [address] [place] [address], [address], [phone], Provider Name:Kun solitario, 06/18/2025 02:30:00 PM, [address] [place] [address], [address], [phone], Progress Notes * Johnny WYLIE ADOB: [birth year] (64 yo M)Acc No.[id number]:02/26/2025 Patient: Johnny KERR :1960 A ge:64 Y S ex:Male Address:[address] [place] [address] doris [place] [address] * * Date:
[2025-02-26 12:24] VITALS: BP 136/64; PULSE 77; TEMP 36.7; O2SAT 97; BMI 37.6
--- NOTE | 2025-02-26 12:24 | MHC.OFFWIV ---
Intake Vital Signs 02/26/25 12:24 Height 5 ft 1 in Weight 199 lb BMI 37.6 BP 136/64 Blood Pressure Location Rt brachial Position Sitting Pulse 77 Pulse Source Pulse Oximeter Temp 98.1 F Temp Source Oral Pulse Oximetry (%) 97 Oxygen Delivery Method Room Air Intake Visit Reasons: EP swelling in both feet. Intake Note: pt here for bilateral feet & ankle swelling for a month, reports pain with walking Patient Tobacco Use Status: Never used Tobacco Allergies No Known Allergies Allergy (Verified 02/26/25 12:26) Medication List - Last Reconciled 02/26/25 by Ericka Louis PA-C aspirin (Adult Aspirin Regimen) 81 mg PO DAILY divalproex 500 mg PO furosemide 20 mg PO BID hydrocortisone 1% 1 appl topical QID PRN insulin glargine (Lantus Solostar U-100 Insulin) 54 units subcut QAM meclizine 50 mg PO BID PRN metformin 1,000 mg PO BID phenytoin sodium extended 100 mg orally 3 capsules in AM and 2 capsules in PM; 90 days rosuvastatin 40 mg PO DAILY sitagliptin (Zituvio) 100 mg PO DAILY Do you need a note to return to daycare/school/sports/work: No HPI HPI Comments History of Present Illness Details History - The patient is a 64-year-old male presenting with bilateral lower extremity swelling. - The swelling has been present for approximately one month and has progressively worsened. - There is no associated pain, tenderness, or color change in the affected areas. - The patient denies any history of cardiac issues, active cancers, smoking, shortness of breath, or previous blood clots. - he does tell me he has been sitting in the car for a long time on a recent trip to [place] and [facility]. - No family history of deep vein thrombosis or pulmonary embolism. - He does take 20mg furosemide BID which he has been taking. Physical Exam General: Cooperative, healthy appearing, comfortable, no acute distress and well developed Orientation: Patient oriented x3 Limitations: No limitations Head: Normal to inspection Ears: Hearing grossly normal bilaterally Nose: Normal External nose present Face and sinus: Normal facial exam Mouth: normal, moist oral mucosa Eyes: Appearance normal, both eyes and all related structures Neck: Normal visual inspection and Yes full ROM Respiratory: Normal respiratory effort and able to speak in complete sentences. Skin: no rashes or lesions noted Neuro: Patient oriented x3 Extremities: moving all extremities normally, Dexcom glucose sensor in place on the medial left calf. Bilateral lower extremity edema, left side has 1+ pitting edema and is more swollen than the right leg. Negative Homans, full range of motion, no skin color changes on the left leg as compared to the right leg, no varicose veins noted. PFSH Medical History Elevated cholesterol Seizures Diabetes Surgical History H/O colonoscopy Social History Patient Tobacco Use Status: Never used Tobacco Substance Use Type: Marijuana Review of Systems Const All systems reviewed & are unremarkable except as noted in HPI and below Physical Exam Vital Signs: Last Vital Signs Temp 98.1 F 02/26/25 12:24 Pulse 77 02/26/25 12:24 BP 136/64 02/26/25 12:24 Pulse Ox 97 02/26/25 12:24 Oxygen Delivery Method Room Air 02/26/25 12:24 BMI result Body Mass Index 37.6 Assessment & Plan Assessment & Plan (1) Pain and swelling of left lower extremity: Code(s): M79.605 - Pain in left leg; M79.89 - Other specified soft tissue disorders Plan: Patient was informed and verbally consented to the use of an ambient scribe for clinic note documentation during this visit 1. Bilateral Lower Extremity Swelling - left leg with 1+ pitting edema, negative Homans but he did have a recent long road trip when the swelling started. - Plan to perform an ultrasound of the left leg to rule out deep vein thrombosis. - No clot detected on venous US of left LE. Will have patient take 20mg extra lasix per day (in the AM) for the next 4 days and follow up with a Nurse Navigator or provider next week at Dr [place]'s office. I did speak with Dr. Medrano's office and they will call him to arrange follow-up. Orders: Orders US venous duplex LE LT Today M79.605 - Pain in left leg, M79.89 - Other specified soft tissue disorders Coding Level of Care Code Est Pt Level 4 (40924) Diagnoses Pain and swelling of left lower extremity M79.605; M79.89
--- OUTSIDE RECORDS SUMMARY | 2025-02-26 12:24 | XMS_ITS | Patient Health Record ---
Author Organization [facility] Address [address] [place] [address] Care Team Providers Care Tire Adjuster Name Role Phone Mitchell HUNG, Kun Primary Care Provider Bernadette Pruitt Unavailable [phone] Allergies No Known Allergies Reason For Referral [...] Problem Status W/U Status Risk Notes Problem 471646088 Encounter for screening for malignant neoplasm of colon (Z12.11) Active confirmed Problem 874866888334531 Preprocedural examination (Z01.818) Active confirmed Problem 399341670121307 Aspirin long-ter m use (Z79.82) Active confirmed Problem Diverticular disease of colon (K57.30) Active confirmed Plan Of Treatment Future Test Test Name Order Date COLONOSCOPY 02/28/2021 Insurance Providers Payer Name Payer Address Payer Phone Subscriber Number Group Number Insured Name Patient Relationship to Insured Coverage Start Date Coverage End Date [facility] [address] [place], [place] [id number] BERNADETTE ORTIZ Self - patient is the insured Medical (General) History Medical History History ICD Code NIDDM Seizures Edema Neg. screening colonoscopy in 01/2011 Hyperlipidemia Denies [place],CVA,Lung disease,renal disease Surgical History Surgery Date(Month/Year) Benign mole removal from back
--- OUTSIDE RECORDS SUMMARY | 2025-02-26 12:25 | XMS_ITS | Data Portability ---
Author Organization [place] - [facility], Allergy Address [address] [address] Care Team Providers Care Dairy Farm Worker Name Role Phone ANGY KABA Primary Care Provider [phone] Assessment Encounter Date Assessment Date Assessment LastModified by Organization Details LastModified Time 12/14/2024 12/14/2024 64 year old male with swelling of the left parotid gland. I have recommended warm compresses several times daily, massage, sialogogues such as sour candy and adequate hydration. Follow up next month with Dr. Moreno. Incidentally noted bilateral cerumen impactions were debrided with suction. [email or web address] Not available 12/14/2024 19:55:32 Plan of Treatment Reminders Order Date Submit Date Provider Last Modified By Organization Details Last Modified Time Details Appointments None record ed. Lab None record ed. Referral None record ed. Procedures None record ed. Surgeries None record ed. Imaging None record ed. Medication Orders None record ed. Patient TargetsNo targets recorded. Patient InstructionsNo instructions recorded. Reason for Referral None Reported. Results Created Date Observation Date Name Description Value Unit Range Abnormal Flag Note LastModifiedBy Organization Detail LastModifiedTime 12/23/1911/03/2024 CT, neck, soft tissu e, w/ contr ast No observ ation record ed. [email or web address] Not Available 2024 11:59:57 Result Notes None recorded. Problems Name Problem SNOMED Code Status Onset Date Resolution Date Notes Provider Name and Address Organization Details Recorded Time Left parotid gland swelling 46236204491455 106 Active 2024 JIMMIE HEALY PA-C 100 [facility], [address] [place] [address], [phone], [facility] 5 19:54:04 Impacted cerumen of bilateral ears 58755332264602 08 Active 2024 JIMMIE HEALY PA-C 100 [facility],[address], [place], [address], [facility] 5 19:55:29 Problem Notes None recorded. Procedures Surgical History Date Name Laterality Status Provider Name and Address Organization Details Recorded Time Cerumen removal without microscope bilat completed JIMMIE HEALY PA-C 100 [facility] 100, [place], [address], [facility] 12/14/2024 19:52:21 Imaging Results None recorded. Procedure Notes None recorded. Medical Equipment None Reported. Allergies Allergen ID Allergen Name Allergen Category Reaction Reaction Severity Criticality Documentation Date Start Date Code Code System Note Provider Name and Address Organization Details Recorded Time 299611 tree and shrub pollen environme nt,medica tion Not available Not available Not available 01/06/20251971 34976 [facility] 5 15:18:46 Medications Name Sig Start Date Stop Date Status Note LastModified by Organization Details LastModified Time amoxicillin 500 mg capsule 2023 completed Not Available Not Available Not Available metformin 500 mg tablet active Not Available Not Available No t Available penicillin V potassium 500 mg tablet 2024 completed Not Available Not Available Not Available phenytoin sodium extended 100 mg capsule active Not Available Not Available N ot Available divalproex 500 mg tablet,delayed release active Not Available Not Available Not Available timolol maleate 0.25 % eye drops active Not Available Not Available No t Available furosemide 20 mg tablet active Not Available Not Available No t Available ibuprofen 600 mg tablet 2024 completed Not Available Not Available Not Available amoxicillin 875 mg-potassium clavulanate 125 mg tablet 2023 completed Not Available Not Available Not Available rosuvastatin 40 mg tablet active Not Available Not Available Not Available Januvia 100 mg tablet 2024 completed Not Available Not Available Not Available Lantus Solostar U-100 Insulin 100 unit/mL (3 mL) subcutaneous pen active Not Available Not Available Not Available Dexcom G6 Sensor device active Not Available Not Availabl e Not Available Dexcom G6 Scientific Editor active Not Available Not Available Not Available Dexcom G6 Transmitter device active Not Available Not Available Not Available Zituvio 100 mg tablet active Not Available Not Available Not Available Vitals Date Recorded Body height Body mass index (BMI) Body weight Provider Name and Address Organization Details Last Updated DateTime 12/14/2024 154.94 cm 37 kg/m2 89470.1 g Jose Carlos Frances [place] - [facility] 12/14/2024 15:05:07 Date Recorded Body height Body mass index (BMI) Body weight Provider Name and Address Organization Details Last Updated DateTime 01/06/2025 154.94 cm 37 kg/m2 08445.1 g Jose Carlos Frances [place] - [facility] 01/06/2025 15:19:20 Social History Question Answer Notes LastModified by Organizat ion Details LastModified Time Tobacco Smoking Status Never Smoker Jose Carlos corrigan [place] - [facility] 12/14/2024 15:05:20 What Type Of Tug Master Do You Use? None Information not available 01/06/2025 Do You Have Any Pets? Yes Information not available 01/06/2025 Are You Passively Exposed To Smoke? No Information not available 01/06/2025 Are There Any Smokers In Your House? No Information not available 01/06/2025 Sex: Unknown Functional Status Question Answer Note LastModified by Organization Details LastModified Time Do you use any illicit or recreational drugs? No Information not available 01/06/2025 Do you or have you ever used any other forms of tobacco or nicotine? No Information not available 01/06/2025 What is your level of alcohol consumption? 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 noExposureToExcessiveNoise roxtelli Infor matneel not available 01/06/2025 Mental Status None recorded. Family History Nothing Reported. Medical History Condition Response Allergies/Hayfever Y Heart Problems N Anxiety N Tonsil Infections N Emphysema N Migraines Y Thyroid Problems N Glaucoma Y Depression N COPD N Developmental Delay N Nasal or Sinus Problems N Anemia N Immune System Disorder N Anesthesia Complications N Heart Attack ([place]) N Other Skin Condition N Diabetes N Rhinitis N Bleeding Disorder N Food Allergy N Arthritis Y Hearing Loss N Hyperlipidemia N Cancer N Stroke N Dementia N Nasal polyps N Asthma N Sleep Disorder N GERD/Reflux N High Cholesterol Y Liver Disease N Headaches Y Fibromyalgia N Hypertension N Speech Delay N Kidney Disease N Past Encounters Encounter ID Performer Location Encounter Start Date Encounter Closed Date Diagnosis/Indication Diagnosis SNOMED-CT Code Diagnosis ICD10 Code Diagnosis Note [id number] JIMMIE HEALY PA-C [facility] on [address] [place] [phone] 12/14/2024 14:30:46 12/14/2024 16:12:27 Left parotid gland swelling 4836361521 9941005 K11.9 Impacted c erumen of bilateral ears 1686572038 932253 H61.23 [id number] BERNADETTE MORENO MD [facility] on [address] [place] [id number] 01/06/2025 15:17:15 01/06/2025 15:55:02 Left parotid gland swelling [id number] 4550218 K11.9 No obvious tumors or masses. No signs of infection. It was difficult to express saliva so he may have an element of dehydratio n. I discussed improved hydration. There is no need for interventi on as his CT was negative for tumors masses or signs of infection. I personally reviewed his CT. I asked him to follow-up if his swelling worsens. He reports the problem is improved. This may be a natural asymmetry of his parotid glands. Health Concerns Section Related Observation LastModified by Organization Detai ls LastModified Time None Recorded Concern Status LastModified by Organization Details LastModified Time None Recorded Advance Directives Directive None Recorded Payers Insurance Date Sequence Insurance Name Policy Number Policy Navarro Covered Member ID Navarro Member ID Guarantor Name 01/06/2025 1 [facility] [id number] Bernadette Wylie [id number] Bernadette Wylie Notes Date Note Type Note Provider Name and Address Organization Details Recorded Time 12/14/2024 text/html 64 year old male presents reporting left cheek swelling intermittently over the past 3 months. No associated pain. Around the time that this started he had a right upper dental implant placed. The swelling has been all left sided. He had a CT neck with contrast at [facility] 11/03/24 which was a normal study. No parotid mass or stone. He has tried warm compresses. He admits to poor hydration. ADA KEYS MD 100 [facility],[address], [address], [place] - [facility] 12/14/2024 21:30:19 01/06/2025 text/html 64 year old male presents reporting left parotid swelling. He reports it has improved compared to previously. No associated pain. Around the time that this started he had a right upper dental implant placed (2 years ago). He had a CT neck with contrast at [facility] 11/03/24 which was a normal study. No parotid mass or stone. BERNADETTE MORENO MD 100 [facility],[place] [address], [place], [address], [place] - [facility] 01/06/2025 15:59:27
== END 2025-02-26 12:56 | disposition home or self-care (01) ==
PROVIDERS: PCP Internal Medicine; Visit Provider Physician Assistant
DX: M79.605 Pain in left leg (principal); M79.89 Other specified soft tissue disorders

== ENCOUNTER 2025-02-26 12:50 | Outpatient (REF) | payer BC, SELFPAY ==
--- NOTE | ~2025-02-26 | US_ITS ---
EXAMINATION: US TRIPLEX LOWER EXTREMITY, LEFT CLINICAL INFORMATION: Pain, left lower extremity. COMPARISON: None available. TECHNIQUE: Color-flow triplex imaging with spectral analysis and compression Doppler were performed on the left lower extremity. FINDINGS: Respiratory variation, normal compression and augmented flow are present in the interrogated left common femoral vein, superficial femoral vein, profunda femoral vein, popliteal vein and midcalf peroneal and posterior tibial venous segments . There is no Brewer's cyst. US/US venous duplex LE LT IMPRESSION: No acute deep venous thrombosis interrogated veins, left lower extremity. Negative for DVT. Electronically signed by: Kevin Veliz MD 02/26/2025 01:30 PM EDT
== END 2025-02-26 12:51 | disposition home or self-care (01) ==
LOC: HO.HMGCX 12:50
PROVIDERS: PCP Internal Medicine; Visit Provider Physician Assistant
DX: M79.605 Pain in left leg (principal); R60.0 Localized edema
CPT/HCPCS: 93971

== ENCOUNTER → 2025-02-26 13:05 | Outpatient (BNV) | payer BC, SELFPAY | PROVIDERS: PCP Internal Medicine; Visit Provider Radiology Diagnostic Radiology | DX: M79.605 Pain in left leg (principal) | CPT/HCPCS: 93971 ==

== ENCOUNTER 2025-03-01 15:09 | Outpatient (REF) | payer BC, SELFPAY ==
--- OUTSIDE RECORDS SUMMARY | 2025-02-26 10:32 | XMS_ITS ---
Author Organization Kun Medrano MD Address [address] [place] [phone] Care Team Providers Care Computer Technology Instructor Name Role Phone Kun Medrano Primary Care Provider REASON FOR VISIT RF Lantus Medications Medication SIG (Take, Route, Frequency, Duration) Notes Start Date End Date Status Lantus SoloStar 100 UNIT/ML 54 units SQ Subcutaneous Once a day for 30 days Active Encounters Encounter Location Date Provider Diagnosis Kun Medrano MD [address] [facility] [address] [place] [phone] 02/26/2025 Kun Medrano Type 2 diabetes mellitus without complication E11.9 Assessments Encounter Date Diagnosis (ICD Code) Assessment Notes Treatment Notes Treatment Clinical Notes Section Notes 02/26/2025 Type 2 diabetes mellitus without complication (ICD-10 - E11.9) Plan Of Treatment Medication Medication Name Sig Start Date Stop Date Notes Lantus SoloStar 100 UNIT/ML 54 units SQ Subcutaneous Once a day for 30 days Next Appt Details Provider Name:Kun solitario, 03/30/2025 11:30:00 AM, 10 [facility], Suite [facility], [place], [place], [phone], Provider Name:Kun Olivares ier, 06/11/2025 08:15:00 AM, [address], [address], [place], [place], [phone], Provider Name:Kun Olivares ier, 06/18/2025 02:30:00 PM, [address], [address], [place], [place], [phone], Progress Notes * Johnny WYLIE ADOB: [birth year] (64 yo M)Acc No.[id number]:02/26/2025 Patient: Fran CORTESJohnny MONDRAGON :1960 A ge:64 Y S ex:Male Address:[address] [place] [address] * Refills Refill Lantus SoloStar Solution Pen-injector, 100 UNIT/ML, Subcutaneous, 15, 54 units SQ, Once a day, 30 days, Refills=5 * true * Date: Generated for Alan pina/Keaton/eTshirleysmitting on: 0 03/01/2025 04:28 PM EDT
[2025-03-01 15:26] LABS: Blood Urea Nitrogen 14 mg/dL (9-16); Estimated Glomerular Filt Rate > 60
--- OUTSIDE RECORDS SUMMARY | 2025-03-01 16:28 | XMS_ITS | Patient Health Record ---
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 [address] [place], [place] [id number] [phone] [id number] BERNADETTE ORTIZ Self - patient is the insured Medical (General) History Medical History History ICD Code NIDDM Seizures Edema Neg. screening colonoscopy in 01/2011 Hyperlipidemia Denies IA,CVA,Lung disease,renal disease Surgical History Surgery Date(Month/Year) Benign mole removal from back
--- OUTSIDE RECORDS SUMMARY | 2025-03-01 16:28 | XMS_ITS | Data Portability ---
Author Organization [place] - [facility], Allergy Address [address] [address] Care Team Providers Care Airport Operations Supervisor Name Role Phone ANGY KABA Primary Care Provider Assessment Encounter Date Assessment Date Assessment LastModified [...] Details Recorded Time Left parotid gland swelling [id number] 106 Active 2024 JIMMIE HEALY PA-C 100 [facility], [address] [place] [address], [phone], [facility] 5 19:54:04 Impacted cerumen of bilateral ears [id number] 08 Active 2024 JIMMIE HEALY PA-C 100 [facility],[address], [place], [phone], [facility] 5 19:55:29 Problem Notes None recorded. Procedures Surgical History Date Name Laterality Status Provider Name and Address Organization Details Recorded Time Cerumen removal without microscope bilat completed JIMMIE HEALY PA-C 100 [facility] 100, [place], [address], [facility] 12/14/2024 19:52:21 Imaging Results None recorded. Procedure Notes None recorded. Medical Equipment None Reported. Allergies Allergen ID Allergen Name Allergen Category Reaction Reaction Severity Criticality Documentation Date Start Date Code Code System Note Provider Name and Address Organization Details Recorded Time 315209 tree and shrub pollen environme nt,medica tion Not available Not available Not available 01/06/20251971 62102 [facility] 5 15:18:46 Medications Name Sig Start [...] Not Availabl e Not Available Dexcom G6 Gasser Machine Operator active Not Available Not Available Not Available Dexcom G6 Transmitter device active Not Available Not Available Not Available Zituvio 100 mg tablet active Not Available Not Available Not Available Vitals Date Recorded Body height Body mass index (BMI) Body weight Provider Name and Address Organization Details Last Updated DateTime 12/14/2024 154.94 cm 37 kg/m2 37763.1 g Jose Carlos Frances [place] [facility] 12/14/2024 15:05:07 Date Recorded Body height Body mass index (BMI) Body weight Provider Name and Address Organization Details Last Updated DateTime 01/06/2025 154.94 cm 37 kg/m2 92510.1 g Jose Carlos Frances [place] [facility] 01/06/2025 15:19:20 Social History Question Answer Notes LastModified by Organizat ion Details LastModified Time Tobacco Smoking Status Never Smoker Jose Carlos corrigan [place] [facility] 12/14/2024 15:05:20 What Type Of Auditing Specialist Do You Use? None Information not available [...] Disorder N Anesthesia Complications N Heart Attack (DE) N Other Skin Condition N Diabetes N [...] SNOMED-CT Code Diagnosis ICD10 Code Diagnosis Note [id number] JIMMIE HEALY PA-C [facility] on [address] [place] [phone] 12/14/2024 14:30:46 12/14/2024 16:12:27 Left parotid gland swelling [id number] K11.9 Impacted c erumen of bilateral ears 9925505644 734606 H61.23 [id number] BERNADETTE MORENO MD [facility] on [address] [place] [phone] 01/06/2025 15:17:15 01/06/2025 15:55:02 Left parotid gland swelling [id number] 3528839 K11.9 No obvious tumors or masses. No [...] Navarro Member ID Guarantor Name 01/06/2025 1 [facility] [id number] Bernadette Wylie [id number] 77 Bernadette Wylie Notes Date Note Type [...] to poor hydration. ADA KEYS MD 100 [facility],[address], [address], [place] - [facility] 12/14/2024 21:30:19 01/06/2025 text/html 64 year [...] mass or stone. BERNADETTE MORENO MD 100 [facility],[place] [address], [place], [address], [place] - [facility] 01/06/2025 15:59:27
== END 2025-03-01 15:10 | disposition home or self-care (01) ==
LOC: HO.LNP 15:09
PROVIDERS: Visit Provider Internal Medicine
DX: R60.0 Localized edema (principal)
CPT/HCPCS: 82565; 84520

== ENCOUNTER 2025-03-25 12:53 | Emergency (ER) | payer BC, SELFPAY ==
--- NOTE | ~2025-03-25 | US_ITS ---
CLINICAL HISTORY: LLE swelling, bruising, r o DVT Venous duplex ultrasound left lower extremity Comparison: Ultrasound of the left lower extremity from 02/26/2025 Findings: The visualized deep veins are fully compressible with normal Doppler color flow and spectral tracings. Lymph nodes in the left groin region are nonspecific and may be reactive. IMPRESSION: 1. Negative for left lower extremity deep vein thrombosis. This document has been electronically signed by: Fernando Smart MD on 03/25/2025 19:20:15
--- NOTE | ~2025-03-25 | XR_ITS ---
EXAMINATION: XR FOOT, LEFT CLINICAL INFORMATION: ecchymosis over 1/2/3rd mTP COMPARISON: None available. TECHNIQUE: AP, lateral, and oblique views of the left foot. FINDINGS: No fracture, dislocation, or suspicious bone lesion. No malalignment. 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 Joint spaces otherwise preserved. Normal plantar arch. Midfoot and hindfoot image normally. There are calcifications along the region of the plantar fascia. There is soft tissue swelling of the dorsal forefoot. XR/XR foot LT min 3V IMPRESSION: 1. Soft tissue swelling of the dorsal forefoot without underlying bony fracture. 2. Calcifications along the course of the plantar fascia noted. Electronically signed by: Parish Blanca MD 03/25/2025 01:53 PM EDT
[2025-03-25 13:24] VITALS: BP 158/74; PULSE 73; RESP 16; TEMP 36.3; O2SAT 98; BMI 38.3
--- NOTE | 2025-03-25 13:24 | ED.GENADULT ---
HPI - General Adult General Chief complaint: Extremity Problem Stated complaint: l foot pain Time Seen by Provider: 03/25/25 18:07 Source: patient and family (brother) Mode of arrival: ambulatory Limitations: no limitations History of Present Illness ED Provider: ANNELIESE LAZARO PA-C HPI narrative: 64 year old male with pmhx significant for T2DM, seizures, HLD presents to the ED today for evaluation of bruising to left foot since last night. Patient reports swelling to bilateral lower extremities x months, worsening over the last month. He has been on 10 mg Lasix for the last 7-8 months, prescribed by his primary care provider. Approximately 1 month ago, he was advised by his PCP to go to urgent care for evaluation of increased swelling to his lower extremities. While at urgent care, they performed an ultrasound of his left lower extremity which was negative for DVT. His Lasix was increased to 20 mg daily. He then followed up with his PCP a few weeks ago who increased his Lasix to 40 mg daily. He reports taking this as prescribed without improvement in swelling. He reports wearing compression stockings intermittently and elevating his LEs at home when he remembers to. They state that last night while seated watching TV, he looked down and noticed bruising to the top of his left foot. Denies any pain to the area. He does not recall any injury or trauma. Admits his diabetes is poorly controlled. He denies any fever, chills, dizziness, chest pain, shortness of breath, palpitations, nausea or vomiting, calf pain. No other complaints at present. Related Data Home Medications ?Medication ?Instructions ?Recorded ?Confirmed divalproex 500 mg tablet,delayed 500 mg PO 03/08/21 02/26/25 release metformin 500 mg tablet 1,000 mg PO BID 03/08/21 02/26/25 rosuvastatin 40 mg tablet 40 mg PO DAILY 03/08/21 02/26/25 aspirin 81 mg tablet,delayed 81 mg PO DAILY 02/26/25 02/26/25 release (Adult Aspirin Regimen) furosemide 20 mg tablet 20 mg PO BID 02/26/25 02/26/25 insulin glargine 100 unit/mL (3 54 unit subcut QAM 02/26/25 02/26/25 mL) subcutaneous pen (Lantus Solostar U-100 Insulin) sitagliptin 100 mg tablet (Zituvio) 100 mg PO DAILY 02/26/25 02/26/25 Previous Rx's ?Medication ?Instructions ?Recorded hydrocortisone 1 % topical cream 1 appl topical QID PRN skin 03/08/21 irritation #28.35 grams meclizine 50 mg tablet 50 mg PO BID PRN dizziness #14 tabs 09/30/23 phenytoin sodium extended 100 mg 100 mg PO .COMPLEX 90 days #450 02/22/25 capsule caps cephalexin 500 mg capsule 500 mg PO TID 7 days #21 caps 03/25/25 compression socks, medium #2 ea 03/25/25 Allergies Allergy/AdvReac Type Severity Reaction Status Date / Time No Known Allergies Allergy Verified 03/25/25 13:25 Review of Systems Review of Systems: Yes all other systems are reviewed and are negative [facility] Past Medical History Attestation statement: The following information was validated with the patient. Source: old records reviewed and nursing notes reviewed Medical History Elevated cholesterol Seizures Diabetes Surgical History H/O colonoscopy Social History Social History Patient Tobacco Use Status: Never used Tobacco Smoked in Last 30 Days: No Use of substances other than those prescribed or required for medical reasons: No Substance Use Type: Marijuana Advance Directives: No Advance Directives Information Provided: No Do you have a plan to hurt others: No Plan Physical Exam ED Vital Signs: Vital Signs - 24 hr 03/25/25 13:24 03/25/25 18:14 03/25/25 20:03 Temperature 97.4 F 96.8 F 96.8 F Pulse Rate 73 72 72 Respiratory Rate 16 14 14 Blood Pressure 158/74 H 164/92 H 164/92 H Pulse Oximetry 98 97 97 Oxygen Delivery Method Room Air Room Air Room Air BMI result Body Mass Index 38.3 vital signs stable, afbrile General: Well appearing, in no acute distress. Skin: Warm, dry, intact. No rashes or lesions. Head: Normocephalic, atraumatic. EENT: Hearing is intact b/l. Conjunctiva clear. Sclera is anicteric. PERRLA. EOM intact. Moist mucous membranes.? Cardiac: Chest wall symmetric. RRR Lungs: Normal respiratory effort without accessory muscle use. CTA bilaterally. No rales, rhonchi, or wheezes.? Ext: 1+ pitting edema to b/l LEs. see photo of left foot below. ecchymosis noted to left dorsal foot over 1st/2nd/3rd MTP joints. nontender. no overlying erythema, warmth, crepitus, deformity. FROM intact to all toes and ankle. strong DP pulse intact. no calf tenderness. Neuro: AOx3. Normal speech. Ambulating with steady gait. Course Course Course Narrative: This is a rapid medical exam performed by Thomas Olsen NP: Additional HPI, ROS, PE not included below will be deferred to primary provider. Patient is a 64-year-old male with history of T2DM presenting with complaint of left foot ecchymosis for a few days. Has been seeing PCP and went to urgent care for LE edema, lasix recently increased. Ecchymosis to left dorsal foot over 1st/2nd/3rd MTP joints. Patient denies any known injury. 2+ DP pulse. Plan: labs, xray Reevaluation(s) Reevaluation #1: CBC without leukocytosis or left shift. Normocytic anemia, H and H stable, above transfusion threshold. Chemistry without acute electrolyte abnormality requiring intervention. No GERI. Random glucose 221. Liver function WNL. BNP WNL at 30. Left foot x-ray showing soft tissue swelling of the dorsal forefoot without underlying bony fracture or abnormality. Venous duplex of left lower extremity without DVT. > PE consistent with chronic dependent edema. He is not in heart failure. advised compression stockings. > ecchymosis consistent with contusion to L foot. given uncontrolled DM, will start patient on a short course of keflex. he denies any pain. advised follow up with outpatient providers. Patient has remained stable throughout ED visit today. Discussed worrisome signs and symptoms and when to return to the ED. All questions answered at this time. Patient is agreeable with disposition and stable for discharge. Medical Decision Making Medical Decision Making MDM Narrative: 64 year old male with pmhx significant for T2DM presents to the ED today for evaluation of bruising to left foot since last night. hypertensive, vitals are otherwise wnl. afebrile. he is well appearing and in NAD. refer to exam portion for findings. Differential diagnosis includes contusion, cellulitis, osteomyelitis, fracture, DVT Plan for screening labs, foot xray, venous duplex, re-evaluation. Differential Diagnosis Differential Diagnoses: The differential diagnosis associated with the presentation includes as above. Admission/Observation not indicated. Lab Data MDM Lab Attestation statement: I reviewed the patient's lab results. as above. 03/25/25 14:05 03/25/25 14:05 Labs: Lab Results 03/25/25 Range/Units 14:05 WBC 4.9 (4.8-10.8) X10*3/uL RBC 4.09 L (4.60-5.80) X10*6/uL Hgb 12.7 L (14.0-18.0) g/dl Hct 36.9 L (42.0-52.0) % MCV 90.2 (80.0-98.0) fL MCH 31.1 (27.0-33.0) pg MCHC 34.4 (31.0-36.0) g/dl RDW 12.7 (11.0-16.0) % Plt Count 108 L (160-400) X10*3/uL MPV 11.9 (9.4-12.4) fL Immature Gran % (Auto) 1.0 H (0.0-0.4) % Neut % (Auto) 38.3 L (45-73) % Lymph % (Auto) 39.0 (20-40) % Traill % (Auto) 11.5 H (2-11) % Eos % (Auto) 8.8 H (0-4) % Baso % (Auto) 1.4 (0-2) % Lymph # (Auto) 1.9 (1.2-4.9) X10*3/uL Traill # (Auto) 0.6 (0.1-1.2) X10*3/uL Eos # (Auto) 0.4 (0.0-0.4) X10*3/uL Baso # (Auto) 0.1 (0.0-0.2) X10*3/uL Abs Immat Gran (auto) 0.05 H (0.00-0.03) X10*3/uL Absolute Neuts (auto) 1.9 L (2.0-8.3) x10*3/uL Absolute Nucleated RBC 0.000 (0.0-0.012) X10*3/uL Nucleated RBC % (auto) 0.0 (0.0-0.2) /100WBC Sodium 142 (135-145) mmol/L Potassium 4.6 (3.3-5.1) mmol/L Chloride 105 (96-108) mmol/L Carbon Dioxide 28 (22-29) mmol/L Anion Gap 14 (12-20) BUN 14 (9-16) mg/dL Creatinine 0.85 (0.5-1.4) mg/dL Estim Creat Clear Calc 82.4 Estimated GFR > 60 Random Glucose 221 H (60-115) mg/dL Calcium 8.9 (8.4-10.2) mg/dL Total Bilirubin 0.3 (0.0-1.0) mg/dL AST 23 (5-37) U/L ALT 34 (0-40) U/L Alkaline Phosphatase 66 (39-117) U/L B-Natriuretic Peptide 30 (<100) pg/mL Total Protein 6.6 (6.5-8.0) g/dL Albumin 4.3 (3.5-5.0) g/dL Independent Interpretation I performed an independent interpretation of an: Plain X-Ray and Ultrasound Interpretation: xr left foot without fracture or bony abnormality venous duplex LLE without DVT Radiology Impression Discussion of test interpretation with radiology: I have reviewed the radiologist's reading. Radiologist Impression: Procedure(s): US venous duplex LE Accession Number(s): [id number] cc: Kun Medrano MD; Anneliese Lazaro~ CLINICAL HISTORY: LLE swelling, bruising, r o DVT Venous duplex ultrasound left lower extremity Comparison: Ultrasound of the left lower extremity from 02/26/2025 Findings: The visualized deep veins are fully compressible with normal Doppler color flow and spectral tracings. Lymph nodes in the left groin region are nonspecific and may be reactive. IMPRESSION: 1. Negative for left lower extremity deep vein thrombosis. This document has been electronically signed by: Fernando Smart MD on 03/25/2025 19:20:15 Procedure(s): US venous duplex LE LT Accession Number(s): [id number] cc: Kun Medrano MD; Anneliese Lazaro~ CLINICAL HISTORY: LLE swelling, bruising, r o DVT Venous duplex ultrasound left lower extremity Comparison: Ultrasound of the left lower extremity from 02/26/2025 Findings: The visualized deep veins are fully compressible with normal Doppler color flow and spectral tracings. Lymph nodes in the left groin region are nonspecific and may be reactive. IMPRESSION: 1. Negative for left lower extremity deep vein thrombosis. This document has been electronically signed by: Fernando Smart MD on 03/25/2025 19:20:15 Independent Historian Clinical information obtained from an independent historian. History obtained from or confirmed by: Other (brother) External Record Review External record reviewed: Inpatient record Prescription Management I considered prescription management with: Antibiotic (keflex) Chronic Conditions Patient?s care impacted by: Diabetes Social Determinants Patient?s care significantly limited by Social Determinants of Health including: Other Social Determinant of Health Critical Care Time Critical Care Time Critical Care Time: No Discharge Plan Discharge Clinical Impression: Contusion of left foot, Dependent edema Patient Disposition: Home, Self-Care Instructions: Foot Contusion (ED), Leg Edema (ED) Additional Instructions: You were evaluated in the ED today for painless bruising to your left foot. Your blood work is reassuring. Your BNP, a marker that we follow for heart failure, is normal. The xray of your left foot shows soft tissue swelling, no acute bony abnormality. The ultrasound of your left leg does not demonstrate DVT. You have a contusion to your left foot. Given your history of poorly controlled diabetes, I am starting you on a course of antibiotics. Take this to completion. I am also prescribing you compression stockings. Elevate your legs whenever possible. I recommend a diet low in sodium (less than 2 grams per day). Monitor your weight daily. Follow up with your PCP this week. Return to the ED with new or worsening symptoms. In the case of an emergency call 911. Prescriptions: New cephalexin 500 mg capsule 500 mg PO TID 7 Days Qty: 21 0RF (DME) compression socks, medium Misc See Rx Instructions .Route Qty: 2 0RF Rx Instructions: As directed No Action phenytoin sodium extended 100 mg capsule 100 mg PO .COMPLEX 90 Days Qty: 450 1RF Rx Instructions: 100 mg orally 3 capsules in AM and 2 capsules in PM; meclizine 50 mg tablet 50 mg PO BID PRN (Reason: dizziness) Qty: 14 0RF rosuvastatin 40 mg tablet 40 mg PO DAILY divalproex 500 mg tablet,delayed release (DR/EC) 500 mg PO metformin 500 mg tablet 1,000 mg PO BID hydrocortisone 1 % cream 1 appl topical QID PRN (Reason: skin irritation) Qty: 28.35 0RF furosemide 20 mg tablet 20 mg PO BID aspirin [Adult Aspirin Regimen] 81 mg tablet,delayed release (DR/EC) 81 mg PO DAILY insulin glargine [Lantus Solostar U-100 Insulin] 100 unit/mL (3 mL) insulin pen 54 unit subcut QAM sitagliptin [Zituvio] 100 mg tablet 100 mg PO DAILY Referrals: Kun Medrano MD [Primary Care Provider, Medical] Interventions: ED Discharge Assessment Last Done: 03/25/25 20:03 Discharge Date/Time: 03/25/25 20:03 Print Language: Nauruan
[2025-03-25 14:16] LABS: MANUAL DIFF FLAG NO
[2025-03-25 14:19] LABS: Hematocrit 36.9 % (42.0-52.0); Hemoglobin 12.7 g/dl (14.0-18.0); Imm Gran Abs Auto 0.05 X10*3/uL (0.00-0.03); Imm Gran Pct Auto 1.0 % (0.0-0.4); Lymphocytes Absolute Auto 1.9 X10*3/uL (1.2-4.9); Mean Corpuscular HGB Conc 34.4 g/dl (31.0-36.0); Mean Corpuscular Hemoglobin 31.1 pg (27.0-33.0); Mean Corpuscular Volume 90.2 fL (80.0-98.0); NRBC Abs Auto 0.000 X10*3/uL (0.0-0.012); NRBC Pct Auto 0.0 /100WBC (0.0-0.2); Platelet Count 108 X10*3/uL (160-400); Red Blood Count 4.09 X10*6/uL (4.60-5.80); White Blood Count 4.9 X10*3/uL (4.8-10.8)
[2025-03-25 14:42] LABS: Alanine Aminotransferase 34 U/L (0-40); Albumin Level 4.3 g/dL (3.5-5.0); Alkaline Phosphatase 66 U/L (39-117); Anion Gap 14 (12-20); Aspartate Amino Transferase 23 U/L (5-37); Blood Urea Nitrogen 14 mg/dL (9-16); Calcium 8.9 mg/dL (8.4-10.2); Carbon Dioxide 28 mmol/L (22-29); Chloride 105 mmol/L (96-108); Creatinine Clr Calc Pharmacy 82.4; Estimated Glomerular Filt Rate > 60; Potassium 4.6 mmol/L (3.3-5.1); Sodium 142 mmol/L (135-145); Total Protein 6.6 g/dL (6.5-8.0)
[2025-03-25 14:48] LABS: B Type Natriuretic Peptide 30 pg/mL (<100)
[2025-03-25 18:14] VITALS: BP 164/92; PULSE 72; RESP 14; TEMP 36; O2SAT 97
[2025-03-25 20:03] VITALS: BP 164/92; PULSE 72; RESP 14; TEMP 36; O2SAT 97
== END 2025-03-25 20:03 | disposition home or self-care (01) ==
PROVIDERS: Registered Nurse Emergency; Emergency Provider Emergency Medicine; PCP Internal Medicine
DX: S90.32XA Contusion of left foot, initial encounter (principal); R60.9 Edema, unspecified; E11.65 Type 2 diabetes mellitus with hyperglycemia; G40.802 Other epilepsy, not intractable, without status epilepticus; X58.XXXA Exposure to other specified factors, initial encounter; Y93.89 Activity, other specified; Y92.098 Other place in other non-institutional residence as the place of occurrence of the external cause; Y99.8 Other external cause status
CPT/HCPCS: 36415; 73630; 80053; 83880; 85025; 93971; 99284

== ENCOUNTER → 2025-03-25 13:27 | Outpatient (BNV) | payer BC, SELFPAY | PROVIDERS: PCP Internal Medicine; Visit Provider Radiology Diagnostic Radiology | DX: R22.42 Localized swelling, mass and lump, left lower limb (principal); M19.072 Primary osteoarthritis, left ankle and foot | CPT/HCPCS: 73630; 93971 ==

== ENCOUNTER → 2025-04-12 10:59 | Outpatient (BNVA) | payer BC, SELFPAY | PROVIDERS: PCP Internal Medicine; Visit Provider Dietitian, Registered | DX: E11.9 Type 2 diabetes mellitus without complications (principal) | CPT/HCPCS: 97803 ==

== ENCOUNTER → 2025-04-12 10:59 | Outpatient (AMB) | payer BC, SELFPAY ==
--- OUTSIDE RECORDS SUMMARY | 2025-03-26 05:12 | XMS_ITS ---
Author Organization Kun Medrano MD Address [address] [place] [phone] Care Team Providers Care Keyseating Machine Set Up Operator Name Role Phone Kun Medrano Primary Care Provider [phone] REASON FOR VISIT foot Encounters Encounter Location Date Provider Diagnosis Kun Medrano MD 10 [facility] [address] [place] [phone] 03/26/2025 Kun Medrano Plan Of Treatment Next Appt Details Provider Name:Kun solitario, 06/11/2025 08:15:00 AM, [address] [place] [address], [address], [phone], Provider Name:Kun solitario, 06/18/2025 02:30:00 PM, [address] [place] [address], [address], [phone], Progress Notes * Johnny WYLIE ADOB: [birth year] (64 yo M)Acc No.[id number]:03/26/2025 Patient: Johnny KERR :1960 A ge:64 Y S ex:Male Address:[address] [place] [address] [place] [address] * true * Date: Generated for Alan pina/Keaton/Peterson on: 04/12/2025 12:18 PM EDT
[2025-04-12 11:18] VITALS: BMI 37.3
--- NOTE | 2025-04-12 11:18 | A.OFFVIS_ITS ---
VS Expanded 04/12/25 11:18 Height 5 ft 1 in Weight 197 lb 5.019 oz BMI 37.3 Intake Visit Reasons: T2DM Allergies No Known Allergies Allergy (Verified 03/25/25 13:25) Nutrition Presentation Details: Pt presents for MNT for T2DM Pt reports having good appetite. Typically having 2-3 meals/day. A family member may help with meals at time but the majority of the time he makes his own meals. typical meal B: Breakfast sand consisting of eggs/sausage, whole wheat bread, tea or diet soda L/D: Rice/chicken/fish , salad or soup with potato/velasquez/pork/vegetables snack on pastries,or fruit or cheese or cereal with milk Pt reports not monitoring gluc level Physical activity : ADL, has a [employer] membership but not participating etoh: occ BS Monitoring Most Recent Diabetes Results: Cholesterol, (<200) 182 mg/dL 12/03/24 HDL Cholesterol, (>40) 36 mg/dL L 12/03/24 Triglycerides, (<150) 231 mg/dL H 12/03/24 Creatinine, (0.5-1.4) 0.85 mg/dL 03/25/25 BUN, (9-16) 14 mg/dL 03/25/25 Sodium, (135-145) 142 mmol/L 03/25/25 Potassium, (3.3-5.1) 4.6 mmol/L 03/25/25 Chloride, (96-108) 105 mmol/L 03/25/25 Carbon Dioxide, (22-29) 28 mmol/L 03/25/25 Calcium, (8.4-10.2) 8.9 mg/dL 03/25/25 AST, (5-37) 23 U/L 03/25/25 ALT, (0-40) 34 U/L 03/25/25 Total Protein, (6.5-8.0) 6.6 g/dL 03/25/25 Albumin, (3.5-5.0) 4.3 g/dL 03/25/25 PFSH Medical History Elevated cholesterol Seizures Diabetes Surgical History H/O colonoscopy Social History Patient Tobacco Use Status: Never used Tobacco Substance Use Type: Marijuana Assessment & Plan Assessment & Plan (1) T2DM (type 2 diabetes mellitus): Code(s): E11.9 - Type 2 diabetes mellitus without complications Category: Medical Plan: A1c : 9.9 % (08/2023) 6.7% 12/2023, 8.3% (06/11). 12/11 (8.0%) Wt: 89 Kg ( 11/2023 ), 87 kg (01/2024), 87 kg (02/09), 92kg (01/10), 89kg (04/12) Est kcal needs as per MSJ: 1800 (40% carb, 30% protein/fat) Est fluid needs as per 25-30 ml/d: 2700 Est prot per day as per 1 g/kg bw: 89 Recommend fiber intake : 8-10 g per day and gradually increase to 25-28 g per day for women and 35-38 g for men or as tolerated Recommend sodium intake per day : less than 2000 mg Educated patient on: ( R = reviewed V = verbalizes understanding N/R = needs review N/A = not applicable * Food sources of carbohydrate, adequate serving sizes and its role in various health conditions: R , V * Differences between complex carbohydrates a simple carbohydrates, role of fiber in diet: R , v * Lean protein sources of foods: R, V * Differences between types of fats and role in diet (mono on saturated fat fatty acids, saturated fatty acids, trans fats): R, V basic info * Food sources of sodium in salt and healthy modifications for heart health in kidney health: R * Vitamins and minerals: R * Healthy plate method concept: R * Practicing mindful eating habits: R, V * Physical activity: Benefits a precaution: - R , V * Hypoglycemia protocol (rule of 15): R ,V * Dietary prevention of Hyperglycemia: R - Pt was advised to monitor blood sugar 4 times a week alternating between fasting blood glucose and 2 hours after a meal * social activities: Pt was encouraged to participate in senior center activities : REVIEWED Patient Instructions: Choose fruit/nut combination or fruit /cheese or yogurt combination as snack in between meals choosing lower salt food options and carb/prot combination to prevent spikes in blood sugar monitor your blood sugar alternating between fasting and 2 hours after a meal keep physically active at least walking at the gym 45-60 min 2 times a week Coding Level of Care Code Nutr Indiv Subseq (43938) Diagnoses T2DM (type 2 diabetes mellitus) E11.9 Time Spent (min) 30
--- OUTSIDE RECORDS SUMMARY | 2025-04-12 12:18 | XMS_ITS | Patient Health Record ---
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 screening colonoscopy in 01/2011 Hyperlipidemia Denies [place],CVA,Lung disease,renal disease Surgical History Surgery Date(Month/Year) Benign mole removal from back
== END ==
LOC: HO.ENCR 10:59
PROVIDERS: PCP Internal Medicine; Visit Provider Dietitian, Registered
DX: E11.9 Type 2 diabetes mellitus without complications (principal)

== ENCOUNTER 2025-05-24 10:34 | Outpatient (REF) | payer BC, SELFPAY ==
--- OUTSIDE RECORDS SUMMARY | 2025-03-30 07:30 | XMS_ITS ---
Author Organization Kun Medrano MD Address [address] [place], [place] [phone] Care Team Providers Care International Trade Specialist Name Role Phone Kun Medrano Primary Care [...] ONCE DAILY for 30 Active Dexcom G7 Chenille Machine Operator - as directed Active Dexcom G6 Sensor - as directed for 14 days 07/28/2024 Active Dexcom G6 Transmitter - USE DIRECTED for 30 Active Dexcom G6 Chenille Machine Operator - as directed 07/28/2024 Active Dilantin [...] Date Provider Diagnosis Kun Medrano MD 10 [facility] [address] [place] [phone] 03/30/2025 Kun Medrano Type 2 diabetes mellitus [...] do nothing Next Appt Details Provider Name:Kun Carlo Elise ier, 06/11/2025 08:15:00 AM, [address] [facility], [address], [place], [place], [phone], Provider Name:Kun Matos Eduardomaida ier, 06/18/2025 02:30:00 PM, [address] [facility], [address], [place], [place], [phone], Progress Notes * Johnny WYLIE ADOB: [birth year] (64 yo M)Acc No.[id number]:03/30/2025 Progress Notes Patient: Johnny KERR Provider: Murray Medrano MD :1960 A ge:64 Y S ex:Male Date:03/30/2025 Address:[address] [place] [address] Subjective: * Chief Complaints: * 4 WEEKS [...] S hortness of breath at rest. D angeles S hortness of breath with exertion. G astrointestinal: Licha Smith iarrhea. D angeles N ausea. * Medical History: * Surgical [...] Sensor - Miscellaneous as directed Dexcom G7 Chenille Machine Operator - Device as directed Dexcom G6 Chenille Machine Operator - Device as directed Dexcom G6 [...] - Miscellaneous as directed Taking Dexcom G7 Chenille Machine Operator - Device as directed Taking Dexcom G6 Chenille Machine Operator - Device as directed Taking Dexcom [...] 2947 ASSAY, GLUCOSE, BLOOD QUANT, Modifiers: QW 77283 GLYCATED HEMOGLOBIN TEST, Modifiers: QW * * Sign off status: Completed true * Provider: Murray Medrano MD Date: 0 03/30/2025 Generated for Alan pina/Keaton/Ghadasmitting on: 1 12:34 PM EDT History and Physical Notes * [...]
--- OUTSIDE RECORDS SUMMARY | 2025-05-11 03:21 | XMS_ITS ---
Author Organization Kun Medrano MD Address [address] [place] [phone] Care Team Providers Care Ms Access Database Developer Name Role Phone Kun Medrano Primary Care Provider REASON FOR VISIT [facility] portal Encounters Encounter Location Date Provider Diagnosis Kun Medrano MD 10 [facility] [address] [place] [phone] 05/11/2025 Kun Medrano Plan Of Treatment Next Appt Details Provider Name:Kun solitario, 06/11/2025 08:15:00 AM, [address] [place] [address], [address], [phone], Provider Name:Kun Olivares ier, 06/18/2025 02:30:00 PM, [address] [place] [address], [address], [phone], Progress Notes * Johnny WYLIE ADOB: [birth year] (64 yo M)Acc No.[id number]:05/11/2025 Patient: Johnny KERR :1960 A ge:64 Y S ex:Male Address:[address] [place] [address] NANC[place] Harrington [address] * true * Date: Generated for Alan pina/Keaton/Peterson on: 12:33 PM EDT
--- OUTSIDE RECORDS SUMMARY | 2025-05-11 05:09 | XMS_ITS ---
Author Organization Kun Medrano MD Address 10 [facility] [address] [place] [phone] Care Team Providers Care Host/Hostess Head Name Role Phone Kun Medrano Primary Care Provider REASON FOR VISIT portal Encounters Encounter Location Date Provider Diagnosis Kun Medrano MD 10 [facility] [address] [place] [phone] 05/11/2025 Kun Medrano Plan Of Treatment Next Appt Details Provider Name:Kun solitario, 06/11/2025 08:15:00 AM, [address] [place] [address], [address], [phone], Provider Name:Kun Olivares iechano, 06/18/2025 02:30:00 PM, [address] [place] [address], [address], [phone], Progress Notes * Johnny WYLIE ADOB: [birth year] (64 yo M)Acc No.[id number]:05/11/2025 Patient: Johnny KERR :1960 A ge:64 Y S ex:Male Address:[address] [place] [address] [place] [address] * true * Date: Generated for Alan pina/Keaton/Peterson on: 12:33 PM EDT
--- OUTSIDE RECORDS SUMMARY | 2025-05-20 13:21 | XMS_ITS ---
Author Organization Kun Medrano MD Address [address] [place] [phone] Care Team Providers Care Assistant Printer Floor Covering Name Role Phone Kun Medrano Primary Care Provider [phone] REASON FOR VISIT fishing Encounters Encounter Location Date Provider Diagnosis Kun Medrano MD 10 [facility] [address] [place] [phone] 05/20/2025 Kun Medrano Plan Of Treatment Next Appt Details Provider Name:Kun Olivares ier, 06/11/2025 08:15:00 AM, [address] [place] [address], [address], [phone], Provider Name:Kun Olivares ier, 06/18/2025 02:30:00 PM, [address] [place] [address], [phone], Progress Notes * Johnny WYLIE ADOB: [birth year] (64 yo M)Acc No.[id number]:05/20/2025 Patient: Johnny KERR :1960 A ge:64 Y S ex:Male Address:[address] [place] [address] [place] [address] * true * Date: Generated for Alan pina/Keaton/Peterson on: 12:34 PM EDT
--- OUTSIDE RECORDS SUMMARY | 2025-05-21 06:15 | XMS_ITS ---
Author Organization Kun Medrano MD Address [address] [place], [place] [phone] Care Team Providers Care Client Resolution Specialist Name Role Phone Kun Medrano Primary Care Provider Results Component Value Reference Range Notes UA ClnCatch+Micro w/rflx Cul t (Not yet reviewed by provider) Interpretation: Performing Lab:[facility], [address] [place] [phone] Notes/Report: Urine, Clean Catch Color Urine Yellow Appearance Urine Clear PH 5.5 5.0-9.0 Glucose Urine UA Negative Negative mg/dL Urine Blood Negative Negative Specific [place] - Urine 1.015 1.005-1.025 Urine Protein Negative [...] Medrano MD [address] [place] [phone] 05/21/2025 Kun Medrano UTI (urinary tract infection) N39.0 and Polyuria R35.89 Assessments Encounter Date Diagnosis (ICD Code) Assessment Notes Treatment Notes Treatment Clinical Notes Section Notes 05/21/2025 UTI (urinary tract infection) (ICD-10 - N39.0) 05/21/2025 Polyuria (ICD-10 - R35.89) Plan Of Treatment Pending Test Test Name Order Date UA ClnCatch+Micro w/rflx Cult 05/21/2025 Next Appt Details Provider Name:Kun Olivares ier, 06/11/2025 08:15:00 AM, [address] [place] [address], [address], [place], [place], [phone], Provider Name:Kun P Elise ier, 06/18/2025 02:30:00 PM, [address] [place] [address], Suite [facility], [place], [place], [phone], Progress Notes * Johnny WYLIE ADOB: [birth year] (64 yo M)Acc No.[id number]:05/21/2025 Progress Note Patient: Fran MONSON Johnny Khan Provider: Murray Medrano MD :1960 A ge:64 Y S ex:Male Date:05/21/2025 Address:[address] [place], [place] [phone] Subjective: * Chief Complaints: * 1 . [...] Pending * Provider: Murray Medrano MD Date: 1 Generated for Alan pina/Faxing/eTransmitting on: 1 12:34 PM EDT
[2025-05-24 11:19] LABS: Appearance Urine Clear; Glucose Urine UA Negative (Negative); PH 5.5 (5.0-9.0); Specific Gravity - Urine 1.015 (1.005-1.025)
--- OUTSIDE RECORDS SUMMARY | 2025-05-24 12:33 | XMS_ITS | Patient Health Record ---
Author Organization [facility] Address [address] [place] [address] Care Team Providers Care Firearms Inspector Name Role Phone Mitchell HUNG, Kun Primary Care Provider Bernadette Pruitt Unavailable [phone] Allergies No Known Allergies Reason For Referral [...] Problem Status W/U Status Risk Notes Problem [id number] Encounter for screening for malignant neoplasm of colon (Z12.11) Active confirmed Problem 298775129555437 Preprocedural examination (Z01.818) Active confirmed Problem [id number] Aspirin long-term use (Z79.82) Active confirmed Problem Diverticular disease of colon (909535008) 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 screening colonoscopy in 01/2011 Hyperlipidemia Denies [place],CVA,Lung disease,renal disease Surgical History Surgery Date(Month/Year) Benign mole removal from back
--- OUTSIDE RECORDS SUMMARY | 2025-05-24 12:34 | XMS_ITS | Patient Health Record ---
Author Organization Kun Medrano MD Address [address] [place], [place] [id number] Care Team Providers Care Storage Specialist Name Role Phone Kun Medrano Primary Care Provider Allergies No Known Allergies Results Component Value Reference Range Notes Hemoglobin A1c Reviewed date:12/10/2024 02:09:04 PM Interpretation: Performing Lab: Notes/Report: Hemoglobin A1c 8.4 Hemoglobin A1c Reviewed date:03/30/2025 11:28:06 AM Interpretation: Performing Lab: Notes/Report: Hemoglobin A1c 7.3 Blood Urea Nitrogen Reviewed date:10/26/2024 12:45:27 PM Interpretation: Performing Lab:[facility], [address] [place] [phone] Notes/Report: Blood Urea Nitrogen 12 9-16 mg/dL Creatinine Reviewed date:10/26/2024 12:36:35 PM Interpretation: Performing Lab:[facility], [address] [place] [phone] Notes/Report: Creatinine 0.67 0.5-1.4 mg/dL Estimated Glomerular Filt Rate > 60 Chronic Kidney Disease: Estimated GFR < 60 mL/min/1.73m2 Severe Kidney Disease: Estimated GFR < 15 mL/min/1.73m2 Liver Panel Reviewed date:12/03/2024 06:04:19 PM Interpretation: Performing Lab:[facility], [address] [place] [phone] Notes/Report: Bilirubin Total 0.4 0.0-1.0 mg/dL Bilirubin Direct 0.1 0.0-0.5 mg/dL Aspartate Amino Transferase 25 5-37 U/L Alanine Aminotransferase 33 0-40 U/L Total Protein 6.6 6.5-8.0 g/dL Albumin Level 4.1 3.5-5.0 g/dL Alkaline Phosphatase 68 39-117 U/L Glucose Fasting Reviewed date:12/03/2024 05:55:26 PM Interpretation: Performing Lab:[facility], [address] [place] [phone] Notes/Report: Glucose Fasting 194 60-99 mg/dL A fasting glucose of 126 mg/dl or greater on more than one occasion is considered diagnostic of diabetes. Lipid Panel with Reflex Reviewed date:12/03/2024 06:07:40 PM Interpretation: Performing Lab:[facility], [address] [place] [phone] Notes/Report: Triglycerides 231 <150 mg/dL Desirable Triglyceride: less than 150 mg/dL Borderline High Triglyceride 150-199 mg/dL High Triglyceride: 200-499 mg/dL Very High Triglyceride: greater than or equal to 5OO mg/dL Cholesterol 182 <200 mg/dL Desirable Cholesterol: less than 200 mg/dL Borderline High Cholesterol: 200-239 mg/dL High Cholesterol: greater than 239 mg/dL LDL Cholesterol Calculated 100 <100 mg/dL Desirable LDL: less than 100 mg/dL Near Optimal/Above Optimal LDL: 110-129 mg/dL Borderline High LDL: 130-159 mg/dL High LDL: 160-189 mg/dL Very High LDL: greater than or equal to 190 mg/dL HDL Cholesterol 36 >40 mg/dL Desirable HDL: greater than 40 mg/dL Note: This HDL assay may give artificially low results in patients with liver disease. Hemoglobin A1c Reviewed date:12/03/2024 05:55:35 PM Interpretation: Performing Lab:[facility], [address] [place] [phone] Notes/Report: Hemoglobin A1c % 8.0 <6.0 % [...] average glucose, using the formula of the L8L-Gpxbozz Average Glucose study (ADAG), Diabetes Care, Vol.31,#8, Mar. 2007 Glucose, finger stick Reviewed date:12/10/2024 02:02:56 PM Interpretation: Performing Lab: Notes/Report: Value 233 UA ClnCatch+Micro w/rflx Cul t (Not yet reviewed by provider) Interpretation: Performing Lab:[facility], [address] [place] [phone] Notes/Report: Urine, Clean Catch Color Urine Yellow Appearance Urine Clear PH 5.5 5.0-9.0 Glucose Urine UA Negative Negative mg/dL Urine Blood Negative Negative Specific Hen[place] - Urine 1.015 1.005-1.025 Urine Protein Negative Neg-Trace mg/dL Urine Ketones Negative Negative mg/dL Nitrite Urine Negative Negative Leukocyte Esterase Urine Negative Negative RBC Urine 0-2 0-2 /HPF WBC Urine 0-5 0-5 /HPF Squamous Epithelial Cell Urine 0-2 0-2 /HPF Bacteria Urine None Seen None Seen Hyaline Casts Urine 0-2 0-2 /LPF Complete Blood Count Auto Di ff Reviewed date:06/09/2024 08:38:32 PM Interpretation: Performing Lab:[facility], [address] [place] [phone] Notes/Report: White Blood Count 6.2 4.8-10.8 X10*3/uL Red Blood Count 4.29 4.60-5.80 X10*6/uL Hemoglobin 13.6 14.0-18.0 g/dl Hematocrit 38.8 42.0-52.0 % Mean Corpuscular Volume 90.4 80.0-98.0 fL Mean Corpuscular Hemoglobin 31.7 27.0-33.0 pg Mean Corpuscular HGB Conc 35.1 31.0-36.0 g/dl Red Cell Distribution Width 13.2 11.0-16.0 % Platelet Count 142 160-400 X10*3/uL Mean Platelet Volume 12.3 9.4-12.4 fL Neutrophils Percent Auto 35.9 45-73 % Imm Gran Pct Auto 0.8 0.0-0.4 % Lymphocytes Percent Auto 44.7 20-40 % Monocytes Percent Auto 9.9 2-11 % Eosinophils Percent Auto 7.6 0-4 % Basophils Percent Auto 1.1 0-2 % NRBC Pct Auto 0.0 0.0-0.2 /100WBC Neutrophils Absolute Auto 2.2 2.0-8.3 x10*3/uL Imm Gran Abs Auto 0.05 0.00-0.03 X10*3/uL Lymphocytes Absolute Auto 2.8 1.2-4.9 X10*3/uL Monocytes Absolute Auto 0.6 0.1-1.2 X10*3/uL Eosinophils Absolute Auto 0.5 0.0-0.4 X10*3/uL Basophils Absolute Auto 0.1 0.0-0.2 X10*3/uL NRBC Abs Auto 0.000 0.0-0.012 X10*3/uL Comprehensive [place]. Panel Fa st Reviewed date:06/09/2024 08:34:11 PM Interpretation: Performing Lab:[facility], [address] [place] [phone] Notes/Report: Sodium 142 135-145 mmol/L Potassium 4.0 3.3-5.1 mmol/L Chloride 107 96-108 mmol/L Carbon Dioxide 29 22-29 mmol/L Anion Gap 10 12-20 Blood Urea Nitrogen 9 9-16 mg/dL Creatinine 0.78 0.5-1.4 mg/dL Estimated Glomerular Filt Rate > 60 NOTE: For -[place]aur[place] individuals, multiply the result by 1.210. Chronic Kidney Disease: Estimated GFR < 60 mL/min/1.73m2 Severe Kidney Disease: Estimated GFR < 15 mL/min/1.73m2 Glucose Fasting 142 60-99 mg/dL A fasting glucose of 126 mg/dl or greater on more than one occasion is considered diagnostic of diabetes. Calcium 9.1 8.4-10.2 mg/dL Bilirubin Total 0.3 0.0-1.0 mg/dL Aspartate Amino Transferase 24 5-37 U/L Alanine Aminotransferase 42 0-40 U/L Total Protein 6.6 6.5-8.0 g/dL Albumin Level 4.1 3.5-5.0 g/dL Alkaline Phosphatase 71 39-117 U/L Lipid Panel Reviewed date:06/09/2024 08:24:33 PM Interpretation: Performing Lab:[facility], [address] [place] [phone] Notes/Report: Triglycerides 142 <150 mg/dL Desirable Triglyceride: less than 150 mg/dL Borderline High Triglyceride 150-199 mg/dL High Triglyceride: 200-499 mg/dL Very High Triglyceride: greater than or equal to 5OO mg/dL Cholesterol 197 <200 mg/dL Desirable Cholesterol: less than 200 mg/dL Borderline High Cholesterol: 200-239 mg/dL High Cholesterol: greater than 239 mg/dL LDL Cholesterol Calculated 122 <100 mg/dL Desirable LDL: less than 100 mg/dL Near Optimal/Above Optimal LDL: 110-129 mg/dL Borderline High LDL: 130-159 mg/dL High LDL: 160-189 mg/dL Very High LDL: greater than or equal to 190 mg/dL HDL Cholesterol 47 >40 mg/dL Desirable HDL: greater than 40 mg/dL Note: This HDL assay may give artificially low results in patients with liver disease. PSA,Total (Free>4and<10) Reviewed date:06/09/2024 05:44:00 PM Interpretation: Performing Lab:[facility], [address] [place] [phone] Notes/Report: PSA,Total (Free>4and<10) 0.57 0.00-4.00 ng/mL A Free PSA was not performed: The percentage of Free PSA can be used to enhance the differentiation of prostate cancer from benign prostatic disease in subjects whose PSA levels are between 4.0 and 10.0 ng/mL. For subjects whose PSA levels are below 4.0 or above 10.0 ng/mL, the risk of prostate cancer is determined on the basis of the PSA alone. Therefore the % Free PSA is recommended only for those subjects whose PSA levels are between 4.0 and 10.0 ng/mL. PSA methodology: Avanseranity i Chemiluminescent Microparticle Immunoassay (CMIA) Vitamin D 25-OH Total Reviewed date:06/09/2024 05:43:47 PM Interpretation: Performing Lab:[facility], [address] [place] [phone] Notes/Report: Vitamin D 25-OH Total 52.4 >30 ng/mL Health Based Reference Values* < 20 ng/mL Deficient 20-30 ng/mL Insufficient > 30 ng/mL Sufficient *Ginger DWYER. N Engl J Med. 2007;357:266-280 Care must be taken in interpreting Vitamin D results from different laboratories and methodologies. Published data demonstrated that results from patients undergoing hemodialysis may show a negative bias when tested with various automated 25-OH vitamin D assays when compared to LC-MS/MS. When testing samples from patients whose predominant form of Vitamin D is Vitamin D2, such as patients receiving Vitamin D2 supplementation, results that are subtherapeutic should be confirmed with another method such as LC-MS/MS. Hemoglobin A1c Reviewed date:06/09/2024 08:33:29 PM Interpretation: Performing Lab:[address] [phone] Notes/Report: Hemoglobin A1c % 8.3 <6.0 % Hemoglobin A1C Reference Range Adults: 4.8 - 6.0 % Non diabetic: < 6.0 % Goal: < 7.0 % Additional Action Suggested: > 8.0 % Note: Hemoglobin A1c results are invalid for patients with abnormal amounts of HbF. Blood transfusions may impact the HbA1c concentration in the patient sample. Estimated Average Glucose 192 eAG = Estimated average glucose which is %A1C expressed as average glucose, using the formula of the Q4J-Kxuazzy Average Glucose study (ADAG), Diabetes Care, Vol.31,#8, Mar. 2007 Occult Blood, Stool, Guaiac Reviewed date:06/16/2024 02:59:51 PM Interpretation:Negative Performing Lab: Notes/Report: Negative Occult Blood, Stool, Guaiac Neg Microalbumin, Random Reviewed date:06/17/2024 05:38:15 PM Interpretation: Performing Lab:[facility], [address] [place] [phone] Notes/Report: Creatinine Urine 126.96 Microalbumin Urine 8.0 Microalbum/Creatinine Ratio Ur 6.3 <30 ug/mg cr Albumin/Creatinine Ratio Reference Ranges: Normal: < 30 ug/mg creatinine Microalbuminuria: 30 - 300 ug/mg creatinine Clinical Albuminuria: > 300 ug/mg creatinine UA ClnCatch+Micro w/rflx Cul t Reviewed date:06/16/2024 04:18:14 PM Interpretation: Performing Lab:[facility], [address] [place] [phone] Notes/Report: [id number] Urine, Clean Catch Color Urine Yellow Appearance Urine Clear PH 5.5 5.0-9.0 Glucose Urine UA >=1000 Negative mg/dL Urine Blood Negative Negative Specific Henning - Urine >= 1.030 1.005-1.025 Urine Protein Negative Neg-Trace mg/dL Urine Ketones 15 Negative mg/dL Nitrite Urine Negative Negative Leukocyte Esterase Urine Negative Negative RBC Urine 0-2 0-2 /HPF WBC Urine 0-5 0-5 /HPF Squamous Epithelial Cell Urine 0-2 0-2 /HPF Bacteria Urine None Seen None Seen Hyaline Casts Urine 0-2 0-2 /LPF Glucose, finger stick Reviewed date:07/28/2024 01:32:08 PM Interpretation: Performing Lab: Notes/Report: Value 156 Glucose, finger stick Reviewed date:02/09/2025 09:03:09 AM Interpretation: Performing Lab: Notes/Report: Value 289 Blood Urea Nitrogen Reviewed date:03/02/2025 12:28:47 PM Interpretation: Performing Lab:[facility], [address] [place] [phone] Notes/Report: Blood Urea Nitrogen 14 9-16 mg/dL Creatinine Reviewed date:03/02/2025 12:28:38 PM Interpretation: Performing Lab:[facility], [address] [place] [phone] Notes/Report: Creatinine 0.90 0.5-1.4 mg/dL Estimated Glomerular Filt Rate > 60 Chronic Kidney Disease: Estimated GFR < 60 mL/min/1.73m2 Severe Kidney Disease: Estimated GFR < 15 mL/min/1.73m2 Glucose, finger stick Reviewed date:03/30/2025 11:21:52 AM Interpretation: Performing Lab: Notes/Report: Value 313 Hold Gold Reviewed date:12/03/2024 05:55:43 PM Interpretation: Performing Lab:[facility], [address] [place] [phone] Notes/Report: Hold Gold See Note Specimen held untested for 24 hours; Call to request Chemistry testing. US venous duplex LE LT Reviewed date:02/26/2025 04:42:11 PM Interpretation: Performing Lab: Notes/Report: [facility] [place] [address] [place] [address] [place] [address] Ultrasound Report Signed Patient: Johnny Wylie MR#: [id number] 2670 : 1960 Acct:[id number] Age/Sex: 64 / M ADM Date: 02/26/25 Loc: HOJADX Attending Dr: Ericka Louis PA-C Ordering Physician: Ericka Louis PA-C Date of Service: 02/26/25 Procedure(s): US venous duplex LE LT Accession Number(s): [id number] cc: Kun Medrano MD; Ericka Louis PA-C EXAMINATION: US TRIPLEX LOWER EXTREMITY, LEFT CLINICAL INFORMATION: Pain, left lower extremity. COMPARISON: None available. TECHNIQUE: Color-flow triplex imaging with spectral analysis and compression Doppler were performed on the left lower extremity. FINDINGS: Respiratory variation, normal compression and augmented flow are present in the interrogated left common femoral vein, superficial femoral vein, profunda femoral vein, popliteal vein and midcalf peroneal and posterior tibial venous segments . There is no Brewer's cyst. US/US venous duplex LE LT IMPRESSION: No acute deep venous thrombosis interrogated veins, left lower extremity. Negative for DVT. Electronically signed by: Kevin Veliz MD 02/26/2025 01:30 PM EDT Dictated By: Kevin Pinto MD Signed By: <Electronically signed by Kevin Garcia MD in OV> 02/26/25 1330 DD/ 1310 TD/TT: 02/26/25 1326 Caustic Purification Operator: [facility] [address] [place] [address] [place] [address] Ultrasound Report Signed Patient: Johnny Wylie MR#: [id number] : 1960 Acct:[id number] Age/Sex: 64 / M ADM Date: 02/26/25 Loc: [facility] Attending Dr: Lauryn Louis PA-C Ordering Physician: Ericka Louis PA-C Date of Service: 02/26/25 Procedure(s): US venous duplex LE LT Accession Number(s): [id number] cc: Kun Medrano MD; Ericka Louis PA-C EXAMINATION: US TRIPLEX LOWER EXTREMITY, LEFT CLINICAL INFORMATION: Pain, left lower extremity. COMPARISON: None available. TECHNIQUE: Color-flow triplex imaging with spectral analysis and compression Doppler were perform ed on the left lower extremity. FINDINGS: Respiratory variatio n, normal compression and augmented flow are present in the interrogated left common femoral vein, superficial femoral vein, profun da femoral vein, popliteal vein and midcalf peroneal and posteri or tibial venous segments . There is no Brewer's cyst. US/US venous duplex LE LT IMPRESSION: No acute deep venous thrombosis interrogated veins, left lower extremity. Negative for DVT. Electronically melanie d by: Kevin Veliz MD 02/26/2025 01:30 PM EDT RP Dictated By: Kevin Mejia MD Signed By: <Electronically signed by Kevin Garcia MD in OV> 02/26/25 1330 DD/ 1310 TD/TT: 02/26/25 1326 Caustic Purification Operator: Complete Blood Count Auto Di ff Reviewed date:03/25/2025 03:05:03 PM Interpretation: Performing Lab:[facility], [address] [place] [phone] Notes/Report: White Blood Count 4.9 4.8-10.8 X10*3/uL Red Blood Count 4.09 4.60-5.80 X10*6/uL Hemoglobin 12.7 14.0-18.0 g/dl Hematocrit 36.9 42.0-52.0 % Mean Corpuscular Volume 90.2 80.0-98.0 fL Mean Corpuscular Hemoglobin 31.1 27.0-33.0 pg Mean Corpuscular HGB Conc 34.4 31.0-36.0 g/dl Red Cell Distribution Width 12.7 11.0-16.0 % Platelet Count 108 160-400 X10*3/uL Mean Platelet Volume 11.9 9.4-12.4 fL Neutrophils Percent Auto 38.3 45-73 % Imm Gran Pct Auto 1.0 0.0-0.4 % Lymphocytes Percent Auto 39.0 20-40 % Monocytes Percent Auto 11.5 2-11 % Eosinophils Percent Auto 8.8 0-4 % Basophils Percent Auto 1.4 0-2 % NRBC Pct Auto 0.0 0.0-0.2 /100WBC Neutrophils Absolute Auto 1.9 2.0-8.3 x10*3/uL Imm Gran Abs Auto 0.05 0.00-0.03 X10*3/uL Lymphocytes Absolute Auto 1.9 1.2-4.9 X10*3/uL Monocytes Absolute Auto 0.6 0.1-1.2 X10*3/uL Eosinophils Absolute Auto 0.4 0.0-0.4 X10*3/uL Basophils Absolute Auto 0.1 0.0-0.2 X10*3/uL NRBC Abs Auto 0.000 0.0-0.012 X10*3/uL Comprehensive Met. Panel Reviewed date:03/25/2025 08:01:13 PM Interpretation: Performing Lab:[facility], [address] [place] [phone] Notes/Report: Sodium 142 135-145 mmol/L Potassium 4.6 3.3-5.1 mmol/L Chloride 105 96-108 mmol/L Carbon Dioxide 28 22-29 mmol/L Anion Gap 14 12-20 Blood Urea Nitrogen 14 9-16 mg/dL Creatinine 0.85 0.5-1.4 mg/dL Creatinine Clr Calc Pharmacy 82.4 eGFR (calculated from the MDRD study equation) and eCrCl (calculated from the Cockcroft-Gault equation) are based on different parameters and may not yield comparable results. If eCrCl result is absurd, please check patient's height/weight. Estimated Glomerular Filt Rate > 60 Chronic Kidney Disease: Estimated GFR < 60 mL/min/1.73m2 Severe Kidney Disease: Estimated GFR < 15 mL/min/1.73m2 Glucose Random 221 60-115 mg/dL Calcium 8.9 8.4-10.2 mg/dL Bilirubin Total 0.3 0.0-1.0 mg/dL Aspartate Amino Transferase 23 5-37 U/L Alanine Aminotransferase 34 0-40 U/L Total Protein 6.6 6.5-8.0 g/dL Albumin Level 4.3 3.5-5.0 g/dL Alkaline Phosphatase 66 39-117 U/L B Type Natriuretic Peptide Reviewed date:03/25/2025 03:10:47 PM Interpretation: Performing Lab:[facility], [address] [place] [phone] Notes/Report: B Type Natriuretic Peptide 30 <100 pg/mL US venous duplex LE LT Reviewed date:03/25/2025 07:55:46 PM Interpretation: Performing Lab: Notes/Report: [address] [address] Ultrasound Report Signed Patient: Johnny Wylie MR#: [id number] 2670 : 1960 Acct:[id number] Age/Sex: 64 / M ADM Date: 03/25/25 Loc: .ED Attending Dr: Ordering Physician: Anneliese Lazaro Date of Service: 03/25/25 Procedure(s): US venous duplex LE LT Accession Number(s): [id number] cc: Kun Medrano MD; Anneliese Lazaro CLINICAL HISTORY: LLE swelling, bruising, r o DVT Venous duplex ultrasound left lower extremity Comparison: Ultrasound of the left lower extremity from 02/26/2025 Findings: The visualized deep veins are fully compressible with normal Doppler color flow and spectral tracings. Lymph nodes in the left groin region are nonspecific and may be reactive. IMPRESSION: 1. Negative for left lower extremity deep vein thrombosis. This document has been electronically signed by: Fernando Smart MD on 03/25/2025 19:20:15 Dictated By: Fernando Smart MD Signed By: <Electronically signed by Fernando Smart MD in OV> 03/25/251920 DD/ 19 TD/TT: 03/25/251919 Caustic Purification Operator: [address] [address] Ultrasound Report Signed Patient: Johnny Wylie MR#: [id number] : 1960 Acct:[id number] Age/Sex: 64 / M ADM Date: 03/25/25 Loc: HO.ED Attending Dr: Ordering Physician: Anneliese Lazaro Date of Service: 03/25/25 Procedure(s): US venous duplex LE LT Accession Number(s): [id number] cc: Kun Medrano MD; Anneliese Lazaro CLINICAL HISTORY: LL E swelling, bruising, r o DVT Venous duplex ultrasound left lower extremity Comparison: Ultrasou nd of the left lower extremity from 02/26/2025 Findings: The visualized deep veins are fully compressible with normal Doppler color flow and spectral tracings. Lymph nodes in the left groin region are nonspecific and may be reactive. IMPRESSION: 1. Negative for left lower extremity deep vein thrombosis. This document has be en electronically signed by: Fernando Smart MD on 03/25/2025 19:20:15 Dictated By: Fernando Smart MD Signed By: <Electronically signed by Fernando Smart MD in OV> 03/25/251920 DD/ 19 TD/TT: 03/25/251919 Caustic Purification Operator: XR foot LT min 3V Reviewed date:03/25/2025 03:13:07 PM Interpretation: Performing Lab: Notes/Report: [address] [address] XRay Report Signed Patient: Johnny Wylie MR#: [id number] 2670 : 1960 Acct:[id number] Age/Sex: 64 / M ADM Date: 03/25/25 Loc: HO.ED Attending Dr: Ordering Physician: Simin Olsen NP Date of Service: 03/25/25 Procedure(s): XR foot LT min 3V Accession Number(s): [id number] cc: Kun Medrano MD; Simin Olsen NP EXAMINATION: XR FOOT, LEFT CLINICAL INFORMATION: ecchymosis over 1/2/3rd mTP COMPARISON: None available. TECHNIQUE: AP, lateral, and oblique views of the left foot. FINDINGS: No fracture, dislocation, or suspicious bone lesion. No malalignment. 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 Joint spaces otherwise preserved. Normal plantar arch. Midfoot and hindfoot image normally. There are calcifications along the region of the plantar fascia. There is soft tissue swelling of the dorsal forefoot. XR/XR foot LT min 3V IMPRESSION: 1. Soft tissue swelling of the dorsal forefoot without underlying bony fracture. 2. Calcifications along the course of the plantar fascia noted. Electronically signed by: Parish Blanca MD 03/25/2025 01:53 PM EDT Dictated By: Parish Blanca MD Signed By: <Electronically signed by Parish Blanca MD in OV> 03/25/25 1353 DD/ 1247 TD/TT: 03/25/25 1347 Caustic Purification Operator: [address] [address] XRay Report Signed Patient: Johnny Wylie MR#: [id number] 2670 : 1960 Acct:[id number] Age/Sex: 64 / M ADM Date: 03/25/25 Loc: .ED Attending Dr: Ordering Physician: Simin Olsen NP Date of Service: 03/25/25 Procedure(s): XR rolly t LT min 3V Accession Number(s): [id number] cc: Kun Medrano MD; Simin Olsen NP EXAMINATION: XR FOOT, LEFT CLINICAL INFORMATION: ecchymosis over 1/2/3rd mTP COMPARISON: None available. TECHNIQUE: AP, lateral, and oblique views of the left foot. FINDINGS: No fracture, dislocation, or suspicious bone lesion. No malalignment. 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 Joint spaces otherwise preserved. Normal plantar arch. Midfoot and hindfoot image normally. There are calcifications along the region of the plantar fascia. There is soft tissue swelling of the dorsal forefoot. XR/XR foot LT min 3V IMPRESSION: 1. Soft tissue swelling of the dorsal forefoot without underlying bony fracture. 2. Calcifications along the course of the plantar fascia noted. 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 Patient is aware of the appt Referral Priority Routine Referral Appointment Date 12/01/2024 Medications Medication SIG (Take, Route, Frequency, Duration) Notes Start Date End Date Status metFORMIN HCl 500 MG 2 tabs at supper Orally Once a day Active Furosemide 40 MG TAKE ONE TABLET BY MOUTH EVERY DAY Orally Once a day for 30 days Active Cyclobenzaprine HCl 5 MG 1 tablet at bed time as needed Orally twice a day for 7 days 11/02/2021 Not-Taking Lantus SoloStar 100 UNIT/ML 27-54 Units Subcutaneous Once a day Active Multi Vitamin Mens as directed Orally Active Dexcom G6 Transmitter - USE DIRECTED for 30 Active Aspir-Low 81 MG 1 tablet Orally Once a day for 30 day(s) 07/03/2012 Active Dexcom G6 Credit Collections Analyst - as directed 07/28/2024 Active ProAir HFA 108 (90 Base) MCG/ACT 2 puffs as needed Inhalation every 4 hrs for 30 days 09/18/2013 Not-Taking Zituvio 100 MG 1 tablet Orally Once a day for 30 days 09/18/2024 Active Dilantin 100 MG as directed Orally 3 tabs q AM 2 Q PM Active Dexcom G7 Credit Collections Analyst - as directed Active Rosuvastatin Calcium 40 MG TAKE 1 TABLET BY MOUTH ONCE DAILY for 30 Active Clobetasol Propionate 0.05 % APPLY EXTERNALLY TWO TIMES A DAY FOR 10 DAYS for 30 Active Dexcom G6 Sensor - USE DIRECTED EVER Y 10 DAYS for 60 Active Move Free Joint [facility] Advance - as directed Orally Active Vitamin D 50 MCG (1999 UT) 4 capsules Or ally Once a day Active Depakote 500 MG as directed Orally five times a day Active BD Pen Needle Mini U/F 31G X 5 MM as directed sq daily for 90 days 10/10/2018 Active Immunizations Vaccine Route Administration Date Status Comme nts Fluarix Quadrivalent IM Intramuscular 04/26/2014 Administe red Fluarix Quadrivalent IM Intramuscular 04/23/2017 Administe red TDaP IM Intramuscular 12/23/2017 Administered pt was given the vaccine at [facility] in [place]. PPSV23 (Pnemovax) IM Intramuscular 09/30/2018 Administered Fluarix Quadrivalent Unknown 07/25/2019 Administered Bi Y in [place] Shingrix Unknown 04/23/2019 Administered 1st shot at [facility] [place] Shingrix Unknown 09/10/2019 Administered 2nd at [facility] [place] Influenza High Dose IM Intramuscular 04/29/2020 Administer ed SARS-COV-2 Moderna Unknown 11/08/2020 Administered SARS-COV-2 Moderna Unknown 12/09/2020 Administered SARS-COV-2 Moderna Unknown 07/26/2021 Administered Fluarix Quadrivalent Unknown 07/26/2021 Administered Fluarix Quadrivalent IM Intramuscular 05/10/2023 Administe red Fluarix Quadrivalent - 150 IM Intramuscular 04/28/2024 Administered zFluzone Quadrivalent Unknown 09/08/2015 Refused Fluarix Quadrivalent Unknown 10/04/2016 Refused Fluarix Quadrivalent Unknown 09/30/2018 Refused Flu Vaccine Unknown 04/26/2014 Pending Tetanus Unknown 12/23/2017 Pending Social History Tobacco Use: Social History Observation Description Date Details (start date - stop date) Never Smoker NA - NA Tobacco Use/Smoking Question Answer Notes Patient is a nonsmoker Additional Findings: Tobacco Non-User Cu rrent non-smoker, currently using no form of tobacco Alcohol Screen Question Answer Notes Did you have a drink containing alcohol in the p ast year? No Points 0 Interpretation Negative Problems Problem Type SNOMED Code ICD Code Onset Dates Problem Status W/U Status Risk Notes Problem 666404237 Thrombocytopenia (D69.6) Active confirmed Problem 01624748 Lymphocytosis (D72.820) Active confirm ed Problem 13259799 Vitamin D defici ency (E55.9) Active confirmed Problem 20851819 Kidney stone (N20.0) Active confirmed Problem 7415708 Arthritis (M19.90) Active confirmed Problem 35887213 Type 2 diabetes mellitus without complication (E11.9) Active confirmed Problem 38683509 Type 2 diabetes, controlled, with neuropathy (E11.40) Active confirmed Problem 002497675 Elevated triglyc erides with high cholesterol (E78.2) Active confirmed Problem 674513995 Seizure disorder (G40.909) Active confirmed Problem 320753771 Hypoglycemia (E16.2) Active confirmed Problem 678638305 Pure hypercholesterolemia (E78.00) Active confirmed Vital Signs Blood pressure diastolic 70 mm Hg 03/30/2025 Height 61 in 03/30/2025 Blood pressure systolic 132 mm Hg 03/30/2025 Weight 201 lbs 03/30/2025 BMI 37.97 kg/m2 03/30/2025 Encounters Encounter Location Date Provider Diagnosis Kun Medrano MD [address] [place] [address] [id number] 10/26/2024 Kun Medrano Blood tests prior to treatment or procedure Z01.812 Kun Medrano MD [address] [place] [address] [id number] 12/03/2024 Kun Medrano Type 2 diabetes belinda itus without complication E11.9 and Pure hypercholesterolemia E78.00 Kun Medrano MD [address] [place] [address] [id number] 12/10/2024 Kun Medrano Type 2 diabetes belinda itus without complication E11.9 ; Pure hypercholesterolemia E78.00 and Seizure disorder G40.909 Kun Medrano MD [address] [place] [address] [address] [id number] 05/21/2025 Kun Medrano UTI (urinary tract infection) N39.0 and Polyuria R35.89 Kun Medrano MD [address] [place] [address] [id number] 06/09/2024 Kun Medrano Blood tests for rout ine general physical examination Z00.00 ; Type 2 diabetes mellitus without complication E11.9 ; Pure hypercholesterolemia E78.00 ; Elevated triglycerides with high cholesterol E78.2 ; Lymphocytosis D72.820 and Vitamin D deficiency E55.9 Kun Medrano MD [address] [place] [address] [id number] 06/16/2024 Kun Medrano Type 2 diabetes belinda itus without complication E11.9 ; Annual physical exam Z00.00 ; Pure hypercholesterolemia E78.00 ; Seizure disorder G40.909 ; Vitamin D deficiency E55.9 ; Colon cancer screening Z12.11 and Depression screening Z13.31 Kun Medrano MD [address] [place] [address] [id number] 07/28/2024 Kun Medrano Type 2 diabetes belinda itus without complication E11.9 and Type 2 diabetes, controlled, with neuropathy E11.40 Kun Medrano MD [address] [place] [address] [id number] 10/22/2024 Kun Medrano 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 and Leg edema R60.0 Kun Medrano MD [address] [place] [address] [id number] 12/24/2024 Kun Medrano Type 2 diabetes belinda itus without complication E11.9 Kun Medrano MD [address] [place] [address] [id number] 02/09/2025 Kun Medrano Type 2 diabetes belinda itus without complication E11.9 and Dependent edema R60.9 Kun Medrano MD [address] [place] [address] [id number] 03/01/2025 Kun Medrano Type 2 diabetes belinda itus without complication E11.9 and Leg edema R60.0 Kun Medrano MD [address] [place] [address] [id number] 03/30/2025 Kun Medrano Type 2 diabetes belinda itus without complication E11.9 and Ecchymosis R58 Kun Medrano MD [address] [place] [address] [id number] 09/17/2024 Kun Medrano MD [address] [place] [address] [id number] 10/23/2024 Kun Medrano 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 Kun Medrano MD [address] [place] [address] [id number] 10/23/2024 Kun Medrano MD [address] [place] [address] [id number] 02/26/2025 Kun Medrano Type 2 diabetes belinda itus without complication E11.9 Kun Medrano MD [address] [place] [address] [id number] 03/25/2025 Kun Medrano MD [address] [place] [address] [id number] 06/16/2024 Kun Medrano MD [address] [place] [address] [id number] 07/20/2024 Kun Medrano MD [address] [place] [address] [id number] 09/18/2024 Kun Medrano MD [address] [place] [address] [id number] 09/18/2024 Kun Medrano MD [address] [place] [address] [id number] 10/05/2024 Kun Medrano MD [address] [place] [address] [id number] 10/16/2024 Kun Medrano MD [address] [place] [address] [id number] 10/22/2024 Kun Medrano MD [address] [place] [address] [id number] 10/22/2024 Kun Medrano MD [address] [place] [address] [id number] 10/25/2024 Kun Medrano MD [address] [place] [address] [id number] 11/02/2024 Kun Medrano MD [address] [place] [address] [id number] 11/04/2024 Kun Medrano MD [address] [place] [address] [id number] 12/22/2024 Kun Medrano MD [address] [place] [address] [id number] 12/29/2024 Kun Medrano MD [address] [place] [address] [id number] 01/05/2025 Kun Medrano MD [address] [place] [address] [id number] 01/05/2025 Kun Medrano MD [address] [place] [address] [id number] 01/05/2025 Kun Medrano MD [address] [place] [address] [id number] 01/14/2025 Kun Medrano MD [address] [place] [address] [id number] 02/07/2025 Kun Medrano MD [address] [place] [address] [id number] 02/24/2025 Kun Medrano MD [address] [place] [address] [id number] 02/26/2025 Kun Medrano Bronchitis 490 Kun Medrano MD [address] [place] [address] [id number] 02/26/2025 Kun Medrano MD [address] [place] [address] [id number] 02/26/2025 Kun Medrano MD [address] [place] [address] [id number] 03/26/2025 Kun Medrano MD [address] [place] [address] [id number] 05/11/2025 Kun Medrano MD [address] [place] [address] [id number] 05/11/2025 Kun Medrano MD [address] [place] [address] [id number] 05/20/2025 Kun Medrano Assessments Encounter Date Diagnosis (ICD Code) Assessment Notes Treatment Notes Treatment Clinical Notes Section Notes 10/26/2024 Blood tests prior to treatment or procedure (ICD-10 - Z01.812) 12/03/2024 Type 2 diabetes mellitus without complication (ICD-10 - E11.9) 12/10/2024 Type 2 diabetes mellitus without complication (ICD-10 - E11.9) 05/21/2025 UTI (urinary tract infection) (ICD-10 - N39.0) 05/21/2025 Polyuria (ICD-10 - R35.89) 06/09/20[address] ine general physical examination (ICD-10 - Z00.00) 06/09/2024 Type 2 diabetes mellitus without complication (ICD-10 - E11.9) 06/16/2024 Type 2 diabetes mellitus without complication (ICD-10 - E11.9) not well controlled. has been eating a lot of candy lately, will continue current regiment, decrease candy and continue to monitor 06/16/2024 Annual physical exam (ICD-10 - Z00.00) labs reviewed and discussed with patient 07/28/2024 Type 2 diabetes mellitus without complication (ICD-10 - E11.9) 07/28/2024 Type 2 diabetes, controlled, with neuropathy (ICD-10 - E11.40) 10/22/2024 Parotid tumor (ICD-1 0 - D49.0) trying to get ent evaluation/ order faxed to [facility] , ending diagnostic testing 10/22/2024 Leg edema (ICD-10 - R60.0) will continue Furosemide 12/24/2024 Type 2 diabetes mellitus without complication (ICD-10 - E11.9) to increase lantus daily by one unit until fasting is 120 02/09/2025 Type 2 diabetes mellitus without complication (ICD-10 - E11.9) 02/09/2025 Dependent edema (ICD -10 - R60.9) double his furosemide until fluid gone. had been eating poorly and sittting in a canoe for days. patient verbalized understanding of directions for medication 03/01/2025 Type 2 diabetes mellitus without complication (ICD-10 - E11.9) 03/01/2025 Leg edema (ICD-10 - R60.0) had doppler of lower extremities and negative 03/30/2025 Type 2 diabetes mellitus without complication [...] extremities of a diabetic so do nothing 10/23/2024 Parotid tumor (ICD-1 0 - D49.0) 02/26/2025 Type 2 diabetes mellitus without complication (ICD-10 - E11.9) 02/26/2025 Bronchitis (ICD9-CM - 490) 12/03/2024 Pure hypercholesterolemia (ICD-10 - E78.00) 12/10/2024 Pure hypercholesterolemia (ICD-10 - E78.00) still not at goal but hopefully will start on diet 06/09/2024 Pure hypercholesterolemia (ICD-10 - E78.00) 06/16/2024 Pure hypercholesterolemia (ICD-10 - E78.00) stable, will continue current regiment 12/10/2024 Seizure disorder (ICD-10 - G40.909) has not had any seizures in long period of time. will continue with present meds 06/09/2024 Elevated triglycerid es with high cholesterol (ICD-10 - E78.2) 06/16/2024 Seizure disorder (ICD-10 - G40.909) not having seizures, followed by Neuro 06/09/2024 Lymphocytosis (ICD-1 0 - D72.820) 06/16/2024 Vitamin D deficiency (ICD-10 - E55.9) stable, will continue current regiment 06/09/2024 Vitamin D deficiency (ICD-10 - E55.9) 06/16/2024 Colon cancer screeni ng (ICD-10 - Z12.11) guaiac negatoive 06/16/2024 Depression screening (ICD-10 - Z13.31) negative screen Plan Of Treatment Pending Test Test Name Order Date Electrocardiogram (EKG) 03/20/2016 Electrocardiogram (EKG) 03/29/2017 CT soft tissue neck w con 10/23/2024 CT soft tissue neck wo/w con 10/22/2024 UA ClnCatch+Micro w/rflx Cult 05/21/2025 Next Appt Details Provider Name:Kun solitario, 06/11/2025 08:15:00 AM, [address] [place] [address], [place] [address], [place], [place], [phone], Provider Name:Kun solitario, 06/18/2025 02:30:00 PM, [address], [address], [place], [place], [phone], Insurance Providers Payer Name Payer Address Payer Phone Subscriber Number Group Number Insured Name Patient Relationship to Insured Coverage Start Date Coverage End Date [facility] [address] [place], [place] [id number] [phone] [id number] Johnny Wylie Self - patient is the insured Medical (General) History Medical History History ICD Code refuses flu vac colonoscopy 04/08 repeat due 5 yrs tejaa r madeline
== END 2025-05-24 10:35 | disposition home or self-care (01) ==
LOC: HO.LNP 10:34
PROVIDERS: Visit Provider Internal Medicine
DX: N39.0 Urinary tract infection, site not specified (principal); R35.89 Other polyuria
CPT/HCPCS: 81001

== ENCOUNTER 2025-06-11 10:56 | Outpatient (REF) | payer BC, SELFPAY ==
--- OUTSIDE RECORDS SUMMARY | 2025-02-26 10:32 | XMS_ITS ---
Author Organization Kun Medrano MD Address [address] [place] [phone] Care Team Providers Care Histologist Name Role Phone Kun Medrano Primary Care Provider REASON FOR VISIT RF Lantus Medications Medication SIG (Take, Route, Frequency, Duration) Notes Start Date End Date Status Lantus SoloStar 100 UNIT/ML 54 units SQ Subcutaneous Once a day for 30 days Active Encounters Encounter Location Date Provider Diagnosis Kun Medrano MD [address] [place] [phone] 02/26/2025 Kun Medrano Type 2 diabetes mellitus [...] days Next Appt Details Provider Name:Kun solitario, 06/18/2025 02:30:00 PM, 10 [facility], Suite [facility], [place], [place], [phone], Progress Notes * ANGELJohnny ADOB: [birth year] (64 yo M)Acc No.[id number]:02/26/2025 Patient: Johnny KERR :1960 A ge:64 Y S ex:Male Address:[address] [place] [address] * Refills Refill Lantus SoloStar Solution Pen-injector, 100 UNIT/ML, Subcutaneous, 15, 54 units SQ, Once a day, 30 days, Refills=5 * true * Date: Generated for Alan pina/Keaton/Roxieitting on: 12:44 PM EDT
--- OUTSIDE RECORDS SUMMARY | 2025-03-01 10:15 | XMS_ITS ---
Author Organization Kun Medrano MD Address [address] [place], [place] [address] Care Team Providers Care Sheet Sorter Name Role Phone Kun Medrano Primary Care Provider [phone] Allergies No Known Allergies Results Component Value Reference Range Notes Blood Urea Nitrogen Reviewed date:03/02/2025 12:28:47 PM Interpretation: Performing Lab:[facility], [address] [place] [phone] Notes/Report: Blood Urea Nitrogen 14 9-16 mg/dL Creatinine Reviewed date:03/02/2025 12:28:38 PM Interpretation: Performing Lab:[facility], [address] [place] [phone] Notes/Report: Creatinine 0.90 0.5-1.4 mg/dL Estimated Glomerular [...] for 7 days 11/02/2021 Not-Taking Dexcom G7 Sound Installation Worker - as directed Active Dexcom G6 Sound Installation Worker - as directed 07/28/2024 Active Rosuvastatin Calcium [...] kg/m2 03/01/2025 weight is down 2 pounds [facility] e 02-09-25 Encounters Encounter Location Date Provider Diagnosis Kun Medrano MD [address] [place] [address] [place] [id number] 03/01/2025 Kun Medrano Type 2 diabetes mellitus [...] Name:Kun Olivares ier, 06/18/2025 02:30:00 PM, [address], [address], [place], [place], [phone], Progress Notes * Johnny WYLIE ADOB: [birth year] (64 yo M)Acc No.[id number]:03/01/2025 Progress Notes Patient: Johnny KERR Provider: Murray Medrano MD :1960 A ge:64 Y S ex:Male Date:03/01/2025 Address:[address] [place] [address] [facility]. [id number] Subjective: * Chief Complaints: * f /u [...] Sensor - Miscellaneous as directed Dexcom G7 Sound Installation Worker - Device as directed Dexcom G6 Sound Installation Worker - Device as directed Dexcom G6 Transmitter [...] - Miscellaneous as directed Taking Dexcom G7 Sound Installation Worker - Device as directed Taking Dexcom G6 Sound Installation Worker - Device as directed Taking Dexcom G6 [...] 0 03/01/2025 Generated for Alan pina/Keaton/eTtj on: 12:46 PM EDT History and Physical Notes * [...]
--- OUTSIDE RECORDS SUMMARY | 2025-03-25 08:48 | XMS_ITS ---
Author Organization Kun Medrano MD Address [address] [place] [phone] Care Team Providers Care Dental Chair Assembler Name Role Phone Kun Medrano Primary Care Provider REASON FOR VISIT foot turning blue Encounters Encounter Location Date Provider Diagnosis Kun Medrano MD 10 [facility] [address] [place] [phone] 03/25/2025 Kun Medrano Plan Of Treatment Next Appt Details Provider Name:Kun Olivares ier, 06/18/2025 02:30:00 PM, [address] [place] [address], Suite [facility], [place], [place], [phone], Progress Notes * Johnny WYLIE ADOB: [birth year] (64 yo M)Acc No.[id number]:03/25/2025 Patient: Johnny KERR :1960 A ge:64 Y S ex:Male Address:[address] [place] [address] [place] [address] * true * Date: Generated for Printi ng/Faxing/eTransmitting on: 1 12:45 PM EDT
--- OUTSIDE RECORDS SUMMARY | 2025-03-26 05:12 | XMS_ITS ---
Author Organization Kun Medrano MD Address [address] [place] [phone] Care Team Providers Care Pilot Submersible Name Role Phone Kun Medrano Primary Care Provider REASON FOR VISIT foot Encounters Encounter Location Date Provider Diagnosis Kun Medrano MD 10 [facility] [address] [place] [phone] 03/26/2025 Kun Medrano Plan Of Treatment Next Appt Details Provider Name:Kun Olivares ier, 06/18/2025 02:30:00 PM, [address] [place] [address], Suite [facility], [place], [place], [phone], Progress Notes * Johnny WYLIE ADOB: [birth year] (64 yo M)Acc No.[id number]:03/26/2025 Patient: Johnny KERR :1960 A ge:64 Y S ex:Male Address:[address] [place] [address] [place] [address] * true * Date: Generated for Printi ng/Faxing/eTransmitting on: 1 12:45 PM EDT
--- OUTSIDE RECORDS SUMMARY | 2025-03-30 07:30 | XMS_ITS ---
Author Organization Kun Medrano MD Address [address] [place], [place] [phone] Care Team Providers Care Sales Coach Name Role Phone Kun Medrano Primary Care Provider Allergies No Known Allergies Results Component Value Reference Range Notes Hemoglobin A1c Reviewed date:03/30/2025 11:28:06 AM Interpretation: Performing Lab: Notes/Report: Hemoglobin A1c 7.3 Glucose, finger stick Reviewed date:03/30/2025 11:21:52 AM Interpretation: Performing Lab: Notes/Report: Value 313 REASON FOR VISIT 4 WEEKS and f/u ER Visit purple toes , Accompanied by cousin Medications Medication SIG (Take, Route, Frequency, Duration) Notes Start Date End Date Status metFORMIN HCl 500 MG 2 tabs at supper Orally Once a day Active Furosemide 40 MG TAKE ONE TABLET BY MOUTH EVERY DAY Orally Once a day for 30 days Active Lantus SoloStar 100 UNIT/ML 27-54 Units Subcutaneous Once a day Active ProAir HFA 108 (90 Base) MCG/ACT 2 puffs as needed Inhalation every 4 hrs for 30 days 09/18/2013 Not-Taking Zituvio 100 MG 1 tablet Orally Once a day for 30 days 09/18/2024 Active Rosuvastatin Calcium 40 MG TAKE 1 TABLET BY MOUTH ONCE DAILY for 30 Active Dexcom G7 Slope Hoist Operator - as directed Active Dexcom G6 Sensor - as directed for 14 days 07/28/2024 Active Dexcom G6 Transmitter - USE DIRECTED for 30 Active Dexcom G6 Slope Hoist Operator - as directed 07/28/2024 Active Dilantin 100 MG as directed Orally 3 tabs q AM 2 Q PM Active Clobetasol Propionate 0.05 % APPLY EXTERNALLY TWO TIMES A DAY FOR 10 DAYS for 30 Active Move Free Joint Health Advance - as directed Orally Active Vitamin D 50 MCG (1999 UT) 4 capsules Or ally Once a day Active Depakote 500 MG as directed Orally five times a day Active BD Pen Needle Mini U/F 31G X 5 MM as directed sq daily for 90 days 10/10/2018 Active Cyclobenzaprine HCl 5 MG 1 tablet at bed time as needed Orally twice a day for 7 days 11/02/2021 Not-Taking Multi Vitamin Mens as directed Orally Active Aspir-Low 81 MG 1 tablet Orally Once a day for 30 day(s) 07/03/2012 Active Vital Signs Blood pressure systolic 132 mm Hg 03/30/20 25 Blood pressure diastolic 70 mm Hg 025 Height 61 in 03/30/2025 Weight 201 lbs 03/30/2025 BMI 37.97 kg/m2 03/30/2025 Encounters Encounter Location Date Provider Diagnosis Kun Medrano MD 10 [facility] [address] [place] [phone] 03/30/2025 Kun Medrano Type 2 diabetes mellitus without complication E11.9 and Ecchymosis R58 Assessments Encounter Date Diagnosis (ICD Code) Assessment Notes Treatment Notes Treatment Clinical Notes Section Notes 03/30/2025 Type 2 diabetes mellitus without complication (ICD-10 - E11.9) still not doing well on his sugars so will increase his insulin by 5 units 03/30/2025 Ecchymosis (ICD-10 - R58) patient actually remembers a time when he was fishing that his foot got stuck in a rock a few days before the bruising came on and is certainly the cause. no treatment needed. he says that puttting ice on it makes it wesley and there is no reason to do that. also told him it is not a good idea to use heat in the lower extremities of a diabetic so do nothing Plan Of Treatment Medication Medication Name Sig Start Date Stop Date Notes Cephalexin 500 MG 1 capsule Orally every 6 hrs Treatment Notes Assessment Notes Type 2 diabetes mellitus wit hout complication still not doing well on his sugars so wi ll increase his insulin by 5 units Ecchymosis patient actually rem embers a time when he was fishing that his foot got stuck in a rock a few days before the bruising came on and is certainly the cause. no treatment needed. he says that puttting ice on it makes it wesley and there is no reason to do that. also told him it is not a good idea to use heat in the lower extremities of a diabetic so do nothing Next Appt Details Provider Name:Kun Olivares ier, 06/18/2025 02:30:00 PM, [address], [address], [place], [place], [phone], Progress Notes * Johnny WYLIE ADOB: [birth year] (64 yo M)Acc No.[id number]:03/30/2025 Progress Notes Patient: Fran CORTESALANNAJohnny Provider: Murray Medrano MD :1960 A ge:64 Y S ex:Male Date:03/30/2025 Address:[address] [place], [place] [phone] Subjective: * Chief Complaints: * 4 WEEKS and f/u ER Visit purple toes Accompanied by cousin * HPI: S ymptom(s): patient is a 64 yo male here for 4 week follow up visit. * ROS: G eneral/Constitutional: Denies C hills. D enies F atigue. D enies F ever. D enies H eadache. E NT: Denies S ore throat. E ndocrine: Denies D ifficulty sleeping. D enies D izziness.?Denies E xcessive sweating. A dmits E xcessive thirst. A dmits F requent urination. R espiratory: Denies C ough. D enies S hortness of breath at rest. D enies S hortness of breath with exertion. G astrointestinal: Denies D iarrhea. D enies N ausea. * Medical History: * Surgical History: * Hospitalization/Major Diagno stic Procedure: * Medications: T akingCephalexin 500 MG Capsule 1 capsule Orally every 6 hrs Aspir-Low 81 MG Tablet Delayed Release 1 [...] Sensor - Miscellaneous as directed Dexcom G7 Slope Hoist Operator - Device as directed Dexcom G6 Slope Hoist Operator - Device as directed Dexcom G6 Transmitter - Miscellaneous USE DIRECTED Zituvio 100 MG Tablet 1 tablet Orally Once a day Furosemide 40 MG Tablet TAKE ONE TABLET BY MOUTH EVERY DAY Orally Once a day metFORMIN HCl 500 MG Tablet 2 tabs at supper Orally Once a day Lantus SoloStar 100 UNIT/ML Solution Pen-injector 27-54 Units Subcutaneous Once a day Taking Cephalexin 500 MG Capsule 1 capsule Orally every 6 hrs Taking Aspir-Low 81 MG Tablet Delayed Release [...] - Miscellaneous as directed Taking Dexcom G7 Slope Hoist Operator - Device as directed Taking Dexcom G6 Slope Hoist Operator - Device as directed Taking Dexcom G6 Transmitter - Miscellaneous USE DIRECTED Taking Zituvio 100 MG Tablet 1 tablet Orally Once a day Taking Furosemide 40 MG Tablet TAKE ONE TABLET BY MOUTH EVERY DAY Orally Once a day Taking metFORMIN HCl 500 MG Tablet 2 tabs at supper Orally Once a day Taking Lantus SoloStar 100 UNIT/ML Solution Pen-injector 27-54 Units Subcutaneous Once a day Not-Taking/PRNProAir HFA 108 (90 Base) MCG/ACT Aerosol Solution 2 puffs as needed Inhalation every 4 hrs Cyclobenzaprine HCl 5 MG Tablet 1 tablet at bedtime as needed Orally twice a day Medication List reviewed and reconciled with the patientNot-Taking/PRN ProAir HFA 108 (90 Base) MCG/ACT Aerosol Solution 2 puffs as needed Inhalation every 4 hrs Not-Taking/PRN Cyclobenzaprine HCl 5 MG Tablet 1 tablet at bedtime as needed Orally twice a day Medication List reviewed and reconciled with the patient * Allergies: N .K.D.A.yes[Allergies Verified] Objective: * Vitals: H t: 61, Wt: 201, BMI:37.97, BP:132/70, Wt-k.17. * Examination: G eneral Examination: GENERAL APPEARANCE: a lert, well hydrated, in no distress.? EXTREMITIES: a bnormal with a bruise on 3 toes of the left foot. normal temperature and no evidence of cellulitis. will d/c the keflex/ has swelling of his lower extremities and this is related to sitting and not walking. also has normal pulses in his feet. the distribution of the ecchymosis is consistent with trauma and is not circulatory. the skin is intact and no signs of cellulitis. . Assessment: * Assessment: 1. T ype 2 diabetes mellitus without complication - E11.9 (Primary) 2 . E cchymosis - R58 Plan: * Treatment: Value Reference Range H emoglobin A1c 7.3 ?LAB: Glucose, finger stick (Collection Date & Time - 03/30/2025)* Value Reference Range V alue 313 Notes: still not doing well on his sugars so will increase his insulin by 5 units??2.?Ecchymosis? Notes: patient actually remembers a time when he was fishing that his foot got stuck in a rock a few days before the bruising came on and is certainly the cause. no treatment needed. he says that puttting ice on it makes it wesley and there is no reason to do that. also told him it is not a good ideato use heat in the lower extremities of a diabetic so do nothing?? * Procedure Codes: 8 2947 ASSAY, GLUCOSE, BLOOD QUANT, Modifiers: QW 82196 GLYCATED HEMOGLOBIN TEST, Modifiers: QW * * Sign off status: Completed true * Provider: Murray Medrano MD Date: 0 03/30/2025 Generated for Printi ng/Faxing/eTransmitting on: 1 12:45 PM EDT History and Physical Notes * HPI (History of Present Illness) Category Sub-Category Detail Notes Category Not es Symptom(s) patient is a 64 yo male here for 4 week follow up visit Examination Category Sub-Category Detail Notes Category Not es General Examination GENERAL APPEARANCE: alert, w ell hydrated, in no distress EXTREMITIES: abnormal with a brui se on 3 toes of the left foot. normal temperature and no evidence of cellulitis. will d/c the keflex/ has swelling of his lower extremities and this is related to sitting and not walking. also has normal pulses in his feet. the distribution of the ecchymosis is consistent with trauma and is not circulatory. the skin is intact and no signs of cellulitis.
--- OUTSIDE RECORDS SUMMARY | 2025-05-11 03:21 | XMS_ITS ---
Author Organization Kun Medrano MD Address [address] [place] [phone] Care Team Providers Care Embroidery Worker Name Role Phone Kun Medrano Primary Care Provider REASON FOR VISIT [facility] portal Encounters Encounter Location Date Provider Diagnosis Kun Medrano MD 10 [facility] [address] [place] [phone] 05/11/2025 Kun Medrano Plan Of Treatment Next Appt Details Provider Name:Kun Olivares ier, 06/18/2025 02:30:00 PM, [address] [place] [address], Suite [facility], [place], [place], [phone], Progress Notes * Johnny WYLIE ADOB: [birth year] (64 yo M)Acc No.[id number]:05/11/2025 Patient: Johnny KERR :1960 A ge:64 Y S ex:Male Address:[address] [place] [address] [place] [address] * true * Date: Generated for Printi ng/Faxing/eTransmitting on: 1 12:44 PM EDT
--- OUTSIDE RECORDS SUMMARY | 2025-05-11 05:09 | XMS_ITS ---
Author Organization Kun Medrano MD Address [address] [place] [phone] Care Team Providers Care Hide Handler Name Role Phone Kun Medrano Primary Care Provider REASON FOR VISIT portal Encounters Encounter Location Date Provider Diagnosis Kun Medrano MD 10 [facility] [address] [place] [phone] 05/11/2025 Kun Medrano Plan Of Treatment Next Appt Details Provider Name:Kun Olivares ier, 06/18/2025 02:30:00 PM, [address] [place] [address], Suite [facility], [place], [place], [phone], Progress Notes * Johnny WYLIE ADOB: [birth year] (64 yo M)Acc No.[id number]:05/11/2025 Patient: Johnny KERR :1960 A ge:64 Y S ex:Male Address:[address] [place] [address] [place] [address] * true * Date: Generated for Printi ng/Faxing/eTransmitting on: 1 12:45 PM EDT
--- OUTSIDE RECORDS SUMMARY | 2025-05-20 13:21 | XMS_ITS ---
Author Organization Kun Medrano MD Address [address] [place] [phone] Care Team Providers Care Checker/Stocker Name Role Phone Kun Medrano Primary Care Provider REASON FOR VISIT fishing Encounters Encounter Location Date Provider Diagnosis Kun Medrano MD 10 [facility] [address] [place] [phone] 05/20/2025 Kun Medrano Plan Of Treatment Next Appt Details Provider Name:Kun Olivares ier, 06/18/2025 02:30:00 PM, [address] [place] [address], Suite [facility], [place], [place], [phone], Progress Notes * Johnny WYLIE ADOB: [birth year] (64 yo M)Acc No.[id number]:05/20/2025 Patient: Johnny KERR :1960 A ge:64 Y S ex:Male Address:[address] [place] [address] [place] [address] * true * Date: Generated for Printi ng/Faxing/eTransmitting on: 12:46 PM EDT
--- OUTSIDE RECORDS SUMMARY | 2025-05-21 06:15 | XMS_ITS ---
Author Organization Kun Medrano MD Address [address] [place], [place] [phone] Care Team Providers Care Director Print Name Role Phone Kun Medrano Primary Care Provider [phone] Results Component Value Reference Range Notes UA ClnCatch+Micro w/rflx Cul t Reviewed date:05/26/2025 04:16:25 PM Interpretation: Performing Lab:[facility], [address] [place] [phone] Notes/Report: Urine, Clean Catch Color Urine Yellow Appearance Urine Clear PH 5.5 5.0-9.0 Glucose Urine UA Negative Negative mg/dL Urine Blood Negative Negative Specific [place] - Urine 1.015 1.005-1.025 Urine Protein Negative Neg-Trace mg/dL Urine Ketones Negative Negative mg/dL Nitrite Urine Negative Negative Leukocyte Esterase Urine Negative Negative RBC Urine 0-2 0-2 /HPF WBC Urine 0-5 0-5 /HPF Squamous Epithelial Cell Urine 0-2 0-2 /HPF Bacteria Urine None Seen None Seen Hyaline Casts Urine 0-2 0-2 /LPF REASON FOR VISIT U/A Encounters Encounter Location Date Provider Diagnosis Kun Medrano MD [address] [place] [phone] 05/21/2025 Kun Medrano UTI (urinary tract infection) N39.0 and Polyuria R35.89 Assessments Encounter Date Diagnosis (ICD Code) Assessment Notes Treatment Notes Treatment Clinical Notes Section Notes 05/21/2025 UTI (urinary tract infection) (ICD-10 - N39.0) 05/21/2025 Polyuria (ICD-10 - R35.89) Plan Of Treatment Next Appt Details Provider Name:Kun Olivares ier, 06/18/2025 02:30:00 PM, 10 [facility], [address], [place], [place], [phone], Progress Notes * Johnny WYLIE ADOB: [birth year] (64 yo M)Acc No.[id number]:05/21/2025 Progress Note Patient: Johnny KERR Provider: Murray Medrano MD :1960 A ge:64 Y S ex:Male Date:05/21/2025 Address:[address] [place], [place] [phone] Subjective: * Chief Complaints: * 1 . U/A. * Medical History: Objective: * Vitals: Assessment: * Assessment: 1. U TI (urinary tract infection) - N39.0 (Primary) 2 . P olyuria - R35.89? Plan: * Treatment: 2. P olyuria L AB: UA ClnCatch+Micro w/rflx Cult (Collection Date & Time - 05/24/2025 10:15 AM) * * The named appointment provid er may or may not be the originator of this progress note, and it is not deemed complete until electronically signed by the appointment provider. Sign off status: Pending * Provider: Murray Medrano MD Date: Generated for Alan pina/Keaton/Roxieitting on: 12:46 PM EDT
--- OUTSIDE RECORDS SUMMARY | 2025-06-11 04:15 | XMS_ITS ---
Author Organization Kun Medrano MD Address [address] [place], [place] [phone] Care Team Providers Care Motor Vehicle Technician Name Role Phone Kun Medrano Primary Care Provider Results Component Value Reference Range Notes Complete Blood Count Auto Di ff (Not yet reviewed by provider) Interpretation: Performing Lab:[facility], [address] [place] [phone] Notes/Report: White Blood Count 5.7 4.8-10.8 X10*3/uL Red Blood Count 4.11 4.60-5.80 X10*6/uL Hemoglobin 12.7 14.0-18.0 g/dl Hematocrit 37.2 42.0-52.0 % Mean Corpuscular Volume 90.5 80.0-98.0 fL Mean Corpuscular Hemoglobin 30.9 27.0-33.0 pg Mean Corpuscular HGB Conc 34.1 31.0-36.0 g/dl Red Cell Distribution Width 13.1 11.0-16.0 % Platelet Count 124 160-400 X10*3/uL Mean Platelet Volume 12.7 9.4-12.4 fL Neutrophils Percent Auto 35.2 45-73 % Imm Gran Pct Auto 1.0 0.0-0.4 % Lymphocytes Percent Auto 45.0 20-40 % Monocytes Percent Auto 9.1 2-11 % Eosinophils Percent Auto 8.0 0-4 % Basophils Percent Auto 1.7 0-2 % NRBC Pct Auto 0.0 0.0-0.2 /100WBC Neutrophils Absolute Auto 2.0 2.0-8.3 x10*3/u L Imm Gran Abs Auto 0.06 0.00-0.03 X10*3/uL Lymphocytes Absolute Auto 2.6 1.2-4.9 X10*3/u L Monocytes Absolute Auto 0.5 0.1-1.2 X10*3/uL Eosinophils Absolute Auto 0.5 0.0-0.4 X10*3/u L Basophils Absolute Auto 0.1 0.0-0.2 X10*3/uL NRBC Abs Auto 0.000 0.0-0.012 X10*3/uL Microalbumin, Random (Not ye t reviewed by provider) Interpretation: Performing Lab:[address] [phone] Notes/Report: Creatinine Urine 131.59 Microalbumin Urine 5.0 Microalbum/Creatinine Ratio Ur 3.7 <30 ug/mg cr Albumin/Creatinine Ratio Reference Ranges: Normal: < 30 ug/mg creatinine Microalbuminuria: 30 - 300 ug/mg creatinine Clinical Albuminuria: > 300 ug/mg creatinine UA ClnCatch+Micro w/rflx Cul t (Not yet reviewed by provider) Interpretation: Performing Lab:[address] [phone] Notes/Report: Urine, Clean Catch Color Urine Yellow Appearance Urine Clear PH 6.0 5.0-9.0 Glucose Urine UA Negative Negative mg/dL Urine Blood Negative Negative Specific [place] - Urine 1.020 1.005-1.025 Urine Protein Negative Neg-Trace mg/dL Urine Ketones Trace Negative mg/dL Nitrite Urine Negative Negative Leukocyte Esterase Urine Negative Negative RBC Urine 0-2 0-2 /HPF WBC Urine 0-5 0-5 /HPF Squamous Epithelial Cell Urine 0-2 0-2 /HPF Bacteria Urine None Seen None Seen Hyaline Casts Urine 0-2 0-2 /LPF Lipid Panel Reviewed date:06/11/2025 12:15:52 PM Interpretation: Performing Lab:[facility], [address] [place] [phone] Notes/Report: Triglycerides 373 <150 mg/dL Desirable Triglyceride: less than 150 mg/dL Borderline High Triglyceride 150-199 mg/dL High Triglyceride: 200-499 mg/dL Very High Triglyceride: greater than or equal to 5OO mg/dL Cholesterol 240 <200 mg/dL Desirable Cholesterol: less than 200 mg/dL Borderline High Cholesterol: 200-239 mg/dL High Cholesterol: greater than 239 mg/dL LDL Cholesterol Calculated 129 <100 mg/dL Desirable LDL: less than 100 mg/dL Near Optimal/Above Optimal LDL: 110-129 mg/dL Borderline High LDL: 130-159 mg/dL High LDL: 160-189 mg/dL Very High LDL: greater than or equal to 190 mg/dL HDL Cholesterol 37 >40 mg/dL Desirable HDL: greater than 40 mg/dL Note: This HDL assay may give artificially low results in patients with liver disease. PSA,Total (Free>4and<10) Reviewed date:06/11/2025 12:08:41 PM Interpretation: Performing Lab:[facility], [address] [place] [phone] Notes/Report: PSA,Total (Free>4and<10) 0.49 0.00-4.00 ng/mL A Free PSA was not [...] between 4.0 and 10.0 ng/mL. PSA methodology: Perry Alinity i Chemiluminescent Microparticle Immunoassay (CMIA) Hemoglobin A1c Reviewed date:06/11/2025 12:28:28 PM Interpretation: Performing Lab:[facility], [address] [place] [phone] Notes/Report: Hemoglobin A1c % 7.6 <6.0 % Hemoglobin A1C Reference Range Adults: 4.8 - 6.0 % Non diabetic: < 6.0 % Goal: < 7.0 % Additional Action Suggested: > 8.0 % Note: Hemoglobin A1c results are invalid for patients with abnormal amounts of HbF. Blood transfusions may impact the HbA1c concentration in the patient sample. Estimated Average Glucose 171 eAG = Estimated average glucose which is %A1C expressed as average glucose, using the formula of the [id number] Average Glucose study (ADAG), Diabetes Care, Vol.31,#8, Mar. 2007 REASON FOR VISIT yearly fasting labs Immunizations Vaccine Route Administration Date Status Comme nts Influenza High Dose IM Intramuscular 06/11/2025 Administer ed Encounters Encounter Location Date Provider Diagnosis Kun Medrano MD [address] [place] [id number] 06/11/2025 Kun Medrano Blood tests for rout ine general physical examination Z00.00 ; Type 2 diabetes mellitus without complication E11.9 ; Pure hypercholesterolemia E78.00 ; Lymphocytosis D72.820 and Encounter for administration of vaccine Z23 Assessments Encounter Date Diagnosis (ICD Code) Assessment Notes Treatment Notes Treatment Clinical Notes Section Notes 06/11/2025 Blood tests for rout ine general physical examination (ICD-10 - Z00.00) 06/11/2025 Type 2 diabetes belinda itus without complication (ICD-10 - E11.9) 06/11/2025 Pure hypercholesterolemia (ICD-10 - E78.00) 06/11/2025 Lymphocytosis (ICD-1 0 - D72.820) 06/11/2025 Encounter for administration of vaccine (ICD-10 - Z23) Plan Of Treatment Pending Test Test Name Order Date Complete Blood Count Auto Diff 5 [facility] [place]. Panel Fast 5 Microalbumin, Random 06/11/2025 UA ClnCatch+Micro w/rflx Cult 06/11/2025 Next Appt Details Provider Name:Kun Olivares ier, 06/18/2025 02:30:00 PM, [address], [address], [place], [place], [phone], Progress Notes * Johnny WYLIE ADOB: [birth year] (64 yo M)Acc No.[id number]:06/11/2025 Progress Note Patient: Fran GIDEONRoseanne Johnny Erin Provider: Murray Medrano MD :1960 A ge:64 Y S ex:Male Date:06/11/2025 Address:[id number] Subjective: * Chief Complaints: * 1 . Yearly fasting labs. * Medical History: Objective: * Vitals: Assessment: * Assessment: 1. B lood tests for routine general physical examination - Z00.00 (Primary) 2 .?Type 2 diabetes mellitus without complication - E11.9 3 . P ure hypercholesterolemia - E78.00 4 . L ymphocytosis - D72.820 5 . E ncounter for administration of vaccine - Z23 Plan: * Treatment: 2. T ype 2 diabetes mellitus without complication L AB: Complete Blood Count Auto Diff (Collection Date & Time - 06/11/2025 08:15 AM) L AB: [facility] [place]. Panel Fast L AB: Microalbumin, Random (Collection Date & Time - 06/11/2025 08:15 AM) L AB: UA ClnCatch+Micro w/rflx Cult (Collection Date & Time - 06/11/2025 08:15 AM) L AB: Lipid Panel (Collection Date & Time - 06/11/2025 08:15 AM) L AB: PSA,Total (Free>4and<10) (Collection Date & Time - 06/11/2025 08:15 AM) L AB: Hemoglobin A1c (Collection Date & Time - 06/11/2025 08:15 AM) 3. P ure hypercholesterolemia L AB: Complete Blood Count Auto Diff (Collection Date & Time - 06/11/2025 08:15 AM) L AB: [facility] [place]. Panel Fast L AB: Microalbumin, Random (Collection Date & Time - 06/11/2025 08:15 AM) L AB: UA ClnCatch+Micro w/rflx Cult (Collection Date & Time - 06/11/2025 08:15 AM) L AB: Lipid Panel (Collection Date & Time - 06/11/2025 08:15 AM) L AB: PSA,Total (Free>4and<10) (Collection Date & Time - 06/11/2025 08:15 AM) L AB: Hemoglobin A1c (Collection Date & Time - 06/11/2025 08:15 AM) 4. L ymphocytosis L AB: Complete Blood Count Auto Diff (Collection Date & Time - 06/11/2025 08:15 AM) L AB: [facility] [place]. Panel Fast L AB: Microalbumin, Random (Collection Date & Time - 06/11/2025 08:15 AM) L AB: UA ClnCatch+Micro w/rflx Cult (Collection Date & Time - 06/11/2025 08:15 AM) L AB: Lipid Panel (Collection Date & Time - 06/11/2025 08:15 AM) L AB: PSA,Total (Free>4and<10) (Collection Date & Time - 06/11/2025 08:15 AM) L AB: Hemoglobin A1c (Collection Date & Time - 06/11/2025 08:15 AM) * Immunizations: Influenza High Dose : 0.5 mL (Dose No:1) (Route: Intramuscular) given by Dianne Granados , Office Staff on Left Deltoid * Procedure Codes: 3 6415 VENIPUNCT, ROUTINE*, 47796 FLU VACC PRSV FREE INC ANTIG, 75230 IMMUNIZATION ADMIN * * The named appointment provid er may or may not be the originator of this progress note, and it is not deemed complete until electronically signed by the appointment provider. Sign off status: Pending * Provider: Murray Medrano MD Date: Generated for Alan pina/Keaton/Peterson on: 12:45 PM EDT
[2025-06-11 10:59] LABS: MANUAL DIFF FLAG NO
[2025-06-11 11:13] LABS: Appearance Urine Clear; Glucose Urine UA Negative (Negative); PH 6.0 (5.0-9.0); Specific Gravity - Urine 1.020 (1.005-1.025)
[2025-06-11 11:26] LABS: Hematocrit 37.2 % (42.0-52.0); Hemoglobin 12.7 g/dl (14.0-18.0); Imm Gran Abs Auto 0.06 X10*3/uL (0.00-0.03); Imm Gran Pct Auto 1.0 % (0.0-0.4); Lymphocytes Absolute Auto 2.6 X10*3/uL (1.2-4.9); Mean Corpuscular HGB Conc 34.1 g/dl (31.0-36.0); Mean Corpuscular Hemoglobin 30.9 pg (27.0-33.0); Mean Corpuscular Volume 90.5 fL (80.0-98.0); NRBC Abs Auto 0.000 X10*3/uL (0.0-0.012); NRBC Pct Auto 0.0 /100WBC (0.0-0.2); Platelet Count 124 X10*3/uL (160-400); Red Blood Count 4.11 X10*6/uL (4.60-5.80); White Blood Count 5.7 X10*3/uL (4.8-10.8)
[2025-06-11 11:38] LABS: Microalbum/Creatinine Ratio Ur 3.7 ug/mg cr (<30)
[2025-06-11 11:40] LABS: Alanine Aminotransferase 43 U/L (0-40); Albumin Level 4.3 g/dL (3.5-5.0); Alkaline Phosphatase 64 U/L (39-117); Anion Gap 13 (12-20); Aspartate Amino Transferase 28 U/L (5-37); Blood Urea Nitrogen 12 mg/dL (9-16); Calcium 9.1 mg/dL (8.4-10.2); Carbon Dioxide 27 mmol/L (22-29); Chloride 106 mmol/L (96-108); Cholesterol 240 mg/dL (<200); Estimated Glomerular Filt Rate > 60; HDL Cholesterol 37 mg/dL (>40); Potassium 4.2 mmol/L (3.3-5.1); Sodium 142 mmol/L (135-145); Total Protein 6.7 g/dL (6.5-8.0); Triglycerides 373 mg/dL (<150)
[2025-06-11 11:44] LABS: PSA,Total (Free>4and<10) 0.49 ng/mL (0.00-4.00)
--- OUTSIDE RECORDS SUMMARY | 2025-06-11 12:45 | XMS_ITS | Patient Health Record ---
Author Organization [facility] Address [address] [place] [address] Care Team Providers Care Precision Assembly Inspector Name Role Phone Mitchell HUNG, Kun Primary Care Provider Bernadette Pruitt Unavailable [phone] Allergies No Known Allergies Reason For Referral No Information Medications Medication SIG (Take, Route, Frequency, Duration) Notes Start Date End Date Status Baby Aspirin Active Depakote Active Januvia Active Dilantin 100 MG 1 capsule Orally isabel ry 12 hrs; Duration: 30 day(s) Active Rosuvastatin Calcium 40 MG Oral; Duration: 30 Active Furosemide 20 MG Oral; Duration: 30 Active metFORMIN HCl 500 MG Oral; Duration: 60 Active Immunizations Vaccine Route Administration Date [...] Problem Status W/U Status Risk Notes Problem Screening for malignant neoplasm of colon (058496391) Encounter for screening for malignant neoplasm of colon (Z12.11) Active confirmed Problem Preprocedural examination (324167889477122) Preprocedural examination (Z01.818) Active confirmed Problem Long-term current use of aspirin (846549089264231) Aspirin long-term use (Z79.82) Active confirmed Problem Diverticular disease of colon (565122631) Diverticular disease of colon (K57.30) Active confirmed Plan Of Treatment Future Test Test Name Order Date COLONOSCOPY 02/28/2021 Insurance Providers Payer Name Payer Address Payer Phone Subscriber Number Group Number Insured Name Patient Relationship to Insured Coverage Start Date Coverage End Date [facility] [address] [place], [place] [id number] BERNADETTE ORTIZ Self - patient is the insured Medical (General) History Medical History History ICD Code NIDDM Seizures Edema Neg. screening colonoscopy in 01/2011 Hyperlipidemia Denies ID,CVA,Lung disease,renal disease Surgical History Surgery Date(Month/Year) Benign mole removal from back
--- OUTSIDE RECORDS SUMMARY | 2025-06-11 12:46 | XMS_ITS | Data Portability ---
Author Organization [place] [facility], [facility] Address [address] [place] [address] Care Team Providers Care Joint Special Operations Name Role Phone ANGY KABA Primary Care [...] Details Recorded Time Left parotid gland swelling 88329008313487 106 Active 2024 Jimmie corrigan [place] [facility] 04/28/202 5 19:54:04 Impacted cerumen of bilateral ears 39401587648412 08 Active 2024 Jimmie corrigan [place] - [facility] 5 19:55:29 Problem Notes None recorded. Procedures Surgical History Date Name Laterality Status Provider Name and Address Organization Details Recorded Time Cerumen removal without microscope bilat completed Jimmie Healy [place] - [facility] 12/14/2024 19:52:21 Imaging Results None recorded. Procedure Notes None recorded. Medical Equipment None Reported. Allergies Allergen ID Allergen Name Allergen Category Reaction Reaction Severity Criticality Documentation Date Start Date Code Code System Note Provider Name and Address Organization Details Recorded Time 916608 tree and shrub pollen environme nt,medica tion Not available Not available Not available 01/06/20251971 Jose Carlos corrigan [place] - [facility] 5 15:18:46 Medications Name Sig Start [...] Not Availabl e Not Available Dexcom G6 Wall Man active Not Available Not Available Not Available Dexcom G6 Transmitter device active Not Available Not Available Not Available Zituvio 100 mg tablet active Not Available Not Available Not Available Vitals Date Recorded Body height Body mass index (BMI) Body weight Provider Name and Address Organization Details Last Updated DateTime 12/14/2024 154.94 cm 37 kg/m2 56371.1 g Jose Carlos Frances [facility] 12/14/2024 15:05:07 Date Recorded Body height Body mass index (BMI) Body weight Provider Name and Address Organization Details Last Updated DateTime 01/06/2025 154.94 cm 37 kg/m2 17296.1 g Jose Carlos Frances [facility] 01/06/2025 15:19:20 Social History Question Answer Notes LastModified by Organizat ion Details LastModified Time Tobacco Smoking Status Never Smoker Jose Carlos corrigan [facility] 12/14/2024 15:05:20 What Type Of Cabin Outfitter Do You Use? None Information not available [...] noise exposure are you exposed to? noExposureToExcessiveNoise antonio Infor mation not available 01/06/2025 Mental Status None recorded. Family History Nothing Reported. Medical History Condition Response Allergies/Hayfever Y Heart Problems N Anxiety N Tonsil Infections N Emphysema N Migraines Y Thyroid Problems N Depression N COPD N Developmental Delay N Glaucoma Y Nasal or Sinus Problems N Anemia N Immune System Disorder N Anesthesia Complications N Heart Attack (MT) N Other Skin Condition N Diabetes N Rhinitis N Bleeding Disorder N Food Allergy N Hearing Loss N Arthritis Y Hyperlipidemia N Cancer N Stroke N Dementia N Nasal polyps N Asthma N Sleep Disorder N High Cholesterol Y GERD/Reflux N Liver Disease N Headaches Y Fibromyalgia N Hypertension N Speech Delay N Kidney Disease N Past Encounters Encounter ID Performer Location Encounter Start Date Encounter Closed Date Diagnosis/Indication Diagnosis SNOMED-CT Code Diagnosis ICD10 Code Diagnosis IMO Codes Diagnosis Note [id number] JIMMIE HEALY PA-C [facility] on [address] [place] [address], [place] [address] 12/14/2024 14:30:46 12/14/2024 16:12:27 Left parotid gland swelling 7532045112 9236589 K11.9 Impacted c erumen of bilateral ears 1357681110 658557 H61.23 [id number] BERNADETTE MORENO MD [facility] on [address] [place] [address], [place] [address] 01/06/2025 15:17:15 01/06/2025 15:55:02 Left parotid gland swelling 7762491178 5743142 K11.9 No obvious tumors or masses. No [...] Navarro Member ID Guarantor Name 01/06/2025 1 [facility] [id number] Bernadette Wylie [id number] 77 Bernadette Wylie Notes Date Note Type Note Provider Name and Address Organization Details Recorded Time 12/14/2024 text/html ROS as noted in the HPI 64 year old male presents reporting left [...] to poor hydration. ADA KEYS MD [address] [facility],[address], [address], [place] - [facility] 12/14/2024 21:30:19 01/06/2025 text/html ROS as noted in the HPI 64 year old male presents reporting left parotid swelling. He reports it has improved compared to previously. No associated pain. Around the time that this started he had a right upper dental implant placed (2 years ago). He had a CT neck with contrast at [facility] 11/03/24 which was a normal study. No parotid mass or stone. BERNADETTE MORENO MD [address] [facility],[place] [address], [place], [address], [place] - [facility] 01/06/2025 15:59:27
--- OUTSIDE RECORDS SUMMARY | 2025-06-11 12:46 | XMS_ITS | Patient Health Record ---
Author Organization Kun Medrano MD Address [address] [place], [place] [id number] Care Team Providers Care Purchasing Administrator Name Role Phone Kun Medrano Primary Care Provider [phone] Allergies No Known Allergies Results Component Value Reference Range Notes Hemoglobin A1c Reviewed date:12/10/2024 02:09:04 PM Interpretation: Performing Lab: Notes/Report: Hemoglobin A1c 8.4 Hemoglobin A1c Reviewed date:03/30/2025 11:28:06 AM Interpretation: Performing Lab: Notes/Report: Hemoglobin A1c 7.3 Blood Urea Nitrogen Reviewed date:10/26/2024 12:45:27 PM Interpretation: Performing Lab:[facility], [address] [place] [phone] Notes/Report: Blood Urea Nitrogen 12 9-16 mg/dL Creatinine Reviewed date:10/26/2024 12:36:35 PM Interpretation: Performing Lab:[facility], [address] [place] [phone] Notes/Report: Creatinine 0.67 0.5-1.4 mg/dL Estimated Glomerular Filt Rate > 60 Chronic Kidney Disease: Estimated GFR < 60 mL/min/1.73m2 Severe Kidney Disease: Estimated GFR < 15 mL/min/1.73m2 Liver Panel Reviewed date:12/03/2024 06:04:19 PM Interpretation: Performing Lab:[facility], [address] [place] [phone] Notes/Report: Bilirubin Total 0.4 0.0-1.0 mg/dL Bilirubin Direct 0.1 0.0-0.5 mg/dL Aspartate Amino Transferase 25 5-37 U/L Alanine Aminotransferase 33 0-40 U/L Total Protein 6.6 6.5-8.0 g/dL Albumin Level 4.1 3.5-5.0 g/dL Alkaline Phosphatase 68 39-117 U/L Glucose Fasting Reviewed date:12/03/2024 05:55:26 PM Interpretation: Performing Lab:[facility], [address] [place] [phone] Notes/Report: Glucose Fasting 194 60-99 mg/dL A fasting glucose of 126 mg/dl or greater on more than one occasion is considered diagnostic of diabetes. Lipid Panel with Reflex Reviewed date:12/03/2024 06:07:40 PM Interpretation: Performing Lab:[facility], [address] [place] [phone] Notes/Report: Triglycerides 231 <150 mg/dL Desirable Triglyceride: [...] A1c Reviewed date:12/03/2024 05:55:35 PM Interpretation: Performing Lab:[facility], [address] [place] [phone] Notes/Report: Hemoglobin A1c % 8.0 <6.0 % [...] average glucose, using the formula of the U4F-Jmuwckl Average Glucose study (ADAG), Diabetes Care, Vol.31,#8, Mar. 2007 Glucose, finger stick Reviewed date:12/10/2024 02:02:56 PM Interpretation: Performing Lab: Notes/Report: Value 233 UA ClnCatch+Micro w/rflx Cul t Reviewed date:05/26/2025 04:16:25 PM Interpretation: Performing Lab:[facility], [address] [place] [phone] Notes/Report: Urine, Clean Catch Color Urine Yellow Appearance Urine Clear PH 5.5 5.0-9.0 Glucose Urine UA Negative Negative mg/dL Urine Blood Negative Negative Specific [place] - Urine 1.015 1.005-1.025 Urine Protein Negative Neg-Trace mg/dL Urine Ketones Negative Negative mg/dL Nitrite Urine Negative Negative Leukocyte Esterase Urine Negative Negative RBC Urine 0-2 0-2 /HPF WBC Urine 0-5 0-5 /HPF Squamous Epithelial Cell Urine 0-2 0-2 /HPF Bacteria Urine None Seen None Seen Hyaline Casts Urine 0-2 0-2 /LPF Complete Blood Count Auto Di ff (Not yet reviewed by provider) Interpretation: Performing Lab:[facility], [address] [place] [phone] Notes/Report: White Blood Count 5.7 4.8-10.8 X10*3/uL [...] ye t reviewed by provider) Interpretation: Performing Lab:[address] [phone] Notes/Report: Creatinine Urine 131.59 Microalbumin Urine 5.0 Microalbum/Creatinine Ratio Ur 3.7 <30 ug/mg cr Albumin/Creatinine Ratio Reference Ranges: Normal: < 30 ug/mg creatinine Microalbuminuria: 30 - 300 ug/mg creatinine Clinical Albuminuria: > 300 ug/mg creatinine UA ClnCatch+Micro w/rflx Cul t (Not yet reviewed by provider) Interpretation: Performing Lab:[address] [phone] Notes/Report: Urine, Clean Catch Color Urine Yellow Appearance Urine Clear PH 6.0 5.0-9.0 Glucose Urine UA Negative Negative mg/dL Urine Blood Negative Negative Specific [place] - Urine 1.020 1.005-1.025 Urine Protein Negative Neg-Trace mg/dL Urine Ketones Trace Negative mg/dL Nitrite Urine Negative Negative Leukocyte Esterase Urine Negative Negative RBC Urine 0-2 0-2 /HPF WBC Urine 0-5 0-5 /HPF Squamous Epithelial Cell Urine 0-2 0-2 /HPF Bacteria Urine None Seen None Seen Hyaline Casts Urine 0-2 0-2 /LPF Lipid Panel Reviewed date:06/11/2025 12:15:52 PM Interpretation: Performing Lab:[address] [phone] Notes/Report: Triglycerides 373 <150 mg/dL Desirable Triglyceride: [...] (Free>4and<10) Reviewed date:06/11/2025 12:08:41 PM Interpretation: Performing Lab:[address] [phone] Notes/Report: PSA,Total (Free>4and<10) 0.49 0.00-4.00 ng/mL A [...] A1c Reviewed date:06/11/2025 12:28:28 PM Interpretation: Performing Lab:[address] [place] [address] Notes/Report: Hemoglobin A1c % 7.6 <6.0 % [...] average glucose, using the formula of the G7W-Luohscx Average Glucose study (ADAG), Diabetes Care, Vol.31,#8, 2007 Occult Blood, Stool, Guaiac Reviewed date:06/16/2024 02:59:51 PM Interpretation:Negative Performing Lab: Notes/Report: Negative Occult Blood, Stool, Guaiac Neg Microalbumin, Random Reviewed date:06/17/2024 05:38:15 PM Interpretation: Performing Lab:[facility], [address] [place] [phone] Notes/Report: Creatinine Urine 126.96 Microalbumin Urine 8.0 Microalbum/Creatinine Ratio Ur 6.3 <30 ug/mg cr Albumin/Creatinine Ratio Reference Ranges: Normal: < 30 ug/mg creatinine Microalbuminuria: 30 - 300 ug/mg creatinine Clinical Albuminuria: > 300 ug/mg creatinine UA ClnCatch+Micro w/rflx Cul t Reviewed date:06/16/2024 04:18:14 PM Interpretation: Performing Lab:[facility], [address] [place] [phone] Notes/Report: [id number] Urine, Clean Catch Color Urine Yellow Appearance Urine Clear PH 5.5 5.0-9.0 Glucose Urine UA >=1000 Negative mg/dL Urine Blood Negative Negative Specific [place] - Urine >= 1.030 1.005-1.025 Urine Protein [...] Nitrogen Reviewed date:03/02/2025 12:28:47 PM Interpretation: Performing Lab:[facility], [address] [place] [phone] Notes/Report: Blood Urea Nitrogen 14 9-16 mg/dL Creatinine Reviewed date:03/02/2025 12:28:38 PM Interpretation: Performing Lab:[facility], [address] [place] [phone] Notes/Report: Creatinine 0.90 0.5-1.4 mg/dL Estimated Glomerular Filt Rate > 60 Chronic Kidney Disease: Estimated GFR < 60 mL/min/1.73m2 Severe Kidney Disease: Estimated GFR < 15 mL/min/1.73m2 Glucose, finger stick Reviewed date:03/30/2025 11:21:52 AM Interpretation: Performing Lab: Notes/Report: Value 313 Hold Gold Reviewed date:12/03/2024 05:55:43 PM Interpretation: Performing Lab:[facility], [address] [place] [phone] Notes/Report: Hold Gold See Note Specimen held untested for 24 hours; Call to request Chemistry testing. US venous duplex LE LT Reviewed date:02/26/2025 04:42:11 PM Interpretation: Performing Lab: Notes/Report: [facility] [address] [facility] [place] [address] Ultrasound Report Signed Patient: Johnny Wylie MR#: [id number] : 1960 Acct:[id number] Age/Sex: 64 / M ADM Date: 02/26/25 Loc: HO.[facility]GCX Attending Dr: Ericka Louis PA-C Ordering Physician: Ericka Louis PA-C Date of Service: 02/26/25 Procedure(s): US venous duplex LE LT Accession Number(s): [id number] cc: Kun Medrano MD; Ericka Louis PA-C [...] 01:30 PM EDT RP Dictated By: Kevin Pinto MD Signed By: <Electronically signed by Kevin Garcia MD in OV> 02/26/25 1330 DD/ 1310 TD/TT: 02/26/25 1326 Heating Operators Engineer: [facility] [address] [place] [address] [place] [address] Ultrasound Report Signed Patient: Johnny Wylie MR#: [id number] : 1960 Acct:[id number] Age/Sex: 64 / M ADM Date: 02/26/25 [facility]: Lauryn Louis PA-C Ordering Physician: Ericka Louis PA-C Date of Service: 02/26/25 Procedure(s): US venous duplex LE LT Accession Number(s): [id number] cc: Kun Medrano MD; Ericka Louis PA-C [...] 02/26/25 1330 DD/ 1310 TD/TT: 02/26/25 1326 Heating Operators Engineer: Complete Blood Count Auto Di ff Reviewed date:03/25/2025 03:05:03 PM Interpretation: Performing Lab:[facility], [address] [place] [phone] Notes/Report: White Blood Count 4.9 4.8-10.8 X10*3/uL [...] 0.0-0.2 /100WBC Neutrophils Absolute Auto 1.9 2.0-8.3 x10*3/u L Imm Gran Abs Auto 0.05 0.00-0.03 X10*3/uL Lymphocytes Absolute Auto 1.9 1.2-4.9 X10*3/u L Monocytes Absolute Auto 0.6 0.1-1.2 X10*3/uL Eosinophils Absolute Auto 0.4 0.0-0.4 X10*3/u L Basophils Absolute Auto 0.1 0.0-0.2 X10*3/uL NRBC Abs Auto 0.000 0.0-0.012 X10*3/uL Comprehensive Met. Panel Reviewed date:03/25/2025 08:01:13 PM Interpretation: Performing Lab:[facility], [address] [place] [phone] Notes/Report: Sodium 142 135-145 mmol/L Potassium 4.6 [...] Peptide Reviewed date:03/25/2025 03:10:47 PM Interpretation: Performing Lab:[facility], [address] [place] [phone] Notes/Report: B Type Natriuretic Peptide 30 <100 pg/mL US venous duplex LE LT Reviewed date:03/25/2025 07:55:46 PM Interpretation: Performing Lab: Notes/Report: [address] [address] Ultrasound Report Signed Patient: Johnny Wylie MR#: [id number] : 1960 Acct:[id number] Age/Sex: 64 / M ADM Date: 03/25/25 Loc: HO.ED Attending Dr: Ordering Physician: Anneliese Lazaro Date of Service: 03/25/25 Procedure(s): US venous duplex LE LT Accession Number(s): [id number] cc: Kun Medrano MD; Anneliese Lazaro CLINICAL [...] in OV> 03/25/251920 DD/ 19 TD/TT: 03/25/251919 Heating Operators Engineer: [place] [address] Ultrasound Report Signed Patient: Johnny Wylie MR#: [id number] : 1960 Acct:[id number] Age/Sex: 64 / M ADM Date: 03/25/25 Loc: .ED Attending Dr: Ordering Physician: Anneliese Lazaro Date of Service: 03/25/25 Procedure(s): US venous duplex LE LT Accession Number(s): [id number] cc: Kun Medrano MD; Anneliese Lazaro CLINICAL [...] signed by Fernando Smart MD in OV> 03/25/25 192 DD/ 19 TD/TT: 03/25/251919 Heating Operators Engineer: XR foot LT min 3V Reviewed date:03/25/2025 03:13:07 PM Interpretation: Performing Lab: Notes/Report: [address] [address] XRay Report Signed Patient: Johnny Wylie MR#: [id number] : 1960 Acct:[id number] Age/Sex: 64 / M ADM Date: 03/25/25 Loc: HO.ED Attending Dr: Ordering Physician: Simin Olsen NP Date of Service: 03/25/25 Procedure(s): XR foot LT min 3V Accession Number(s): [id number] cc: Kun Medrano MD; Simin Olsen NP [...] 03/25/25 1353 DD/ 1247 TD/TT: 03/25/25 1347 Heating Operators Engineer: [address] [address] XRay Report Signed Patient: Johnny Wylie MR#: [id number] : 1960 Acct:[id number] Age/Sex: 64 / M ADM Date: 03/25/25 Loc: HO.ED Attending Dr: Ordering Physician: Simin Olsen NP Date of Service: 03/25/25 Procedure(s): XR rolly t LT min 3V Accession Number(s): [id number] cc: Kun Medrano MD; Simin Olsen NP [...] 03/25/25 1353 DD/ 1247 TD/TT: 03/25/25 1347 Heating Operators Engineer: Comprehensive Met. Panel (No t yet reviewed by provider) Interpretation: Performing Lab:[facility], [address] [place] [phone] Notes/Report: Sodium 142 135-145 mmol/L Potassium 4.2 3.3-5.1 mmol/L Chloride 106 96-108 mmol/L Carbon Dioxide 27 22-29 mmol/L Anion Gap 13 12-20 Blood Urea Nitrogen 12 9-16 mg/dL Creatinine 0.82 0.5-1.4 mg/dL Estimated Glomerular Filt Rate > 60 Chronic Kidney Disease: Estimated GFR < 60 mL/min/1.73m2 Severe Kidney Disease: Estimated GFR < 15 mL/min/1.73m2 Glucose Random 173 60-115 mg/dL Calcium 9.1 8.4-10.2 mg/dL Bilirubin Total 0.2 0.0-1.0 mg/dL Aspartate Amino Transferase 28 5-37 U/L Alanine Aminotransferase 43 0-40 U/L Total Protein 6.7 6.5-8.0 g/dL Albumin Level 4.3 3.5-5.0 g/dL Alkaline Phosphatase 64 39-117 U/L Reason For Referral Reason left parotid gland [...] 10/26/2024 10:18:19 AM >appt is in the [place] office on [facility]. Patient is aware of [...] for 30 day(s) 07/03/2012 Active Dexcom G6 Cna Hha - as directed 07/28/2024 Active ProAir HFA 108 (90 Base) MCG/ACT 2 puffs as needed Inhalation every 4 hrs for 30 days 09/18/2013 Not-Taking Zituvio 100 MG 1 tablet Orally Once a day for 30 days 09/18/2024 Active Dilantin 100 MG as directed Orally 3 tabs q AM 2 Q PM Active Dexcom G7 Cna Hha - as directed Active Rosuvastatin Calcium 40 MG TAKE 1 TABLET BY MOUTH ONCE DAILY for 30 Active Clobetasol Propionate 0.05 % APPLY EXTERNALLY TWO TIMES A DAY FOR 10 DAYS for 30 Active Dexcom G6 Sensor - USE DIRECTED EVER Y 10 DAYS for 60 Active Move Free Joint Health Advance - [...] Administered pt was given the vaccine at [facility] pharmacy in [place]. PPSV23 (Pnemovax) IM Intramuscular 09/30/2018 Administered Fluarix Quadrivalent Unknown 07/25/2019 Administered Bi Y in [place] Shingrix Unknown 04/23/2019 Administered [address]st shot at [facility] in [place] Shingrix Unknown 09/10/[address] [facility] [place] Influenza High Dose IM Intramuscular 04/29/2020 Administer ed SARS-COV-2 Moderna Unknown 11/08/2020 Administered SARS-COV-2 Moderna Unknown 12/09/2020 Administered SARS-COV-2 Moderna Unknown 07/26/2021 Administered Fluarix Quadrivalent Unknown 07/26/2021 Administered Fluarix Quadrivalent IM Intramuscular 05/10/2023 Administe red Fluarix Quadrivalent - 150 IM Intramuscular 04/28/2024 Administered Influenza High Dose IM Intramuscular 06/11/2025 Administer ed zFluzone Quadrivalent Unknown 09/08/2015 Refused Fluarix Quadrivalent [...] Problem Status W/U Status Risk Notes Problem 177571136 Thrombocytopenia (D69.6) Active confirmed Problem 89634452 Lymphocytosis (D72.820) Active confirm ed Problem 98700680 Vitamin D defici ency (E55.9) Active confirmed Problem 14346703 Kidney stone (N20.0) Active confirmed Problem 2414291 Arthritis (M19.90) Active confirmed Problem 73615785 Type 2 diabetes mellitus without complication (E11.9) Active confirmed Problem 22562445 Type 2 diabetes, controlled, with neuropathy (E11.40) Active confirmed Problem 515394449 Elevated triglyc erides with high cholesterol (E78.2) Active confirmed Problem 269039913 Seizure disorder (G40.909) Active confirmed Problem 530075707 Hypoglycemia (E16.2) Active confirmed Problem 708598891 Pure hypercholesterolemia (E78.00) Active confirmed Vital Signs Blood pressure diastolic 70 mm Hg 03/30/2025 Height 61 in 03/30/2025 Blood pressure systolic 132 mm Hg 03/30/2025 Weight 201 lbs 03/30/2025 BMI 37.97 kg/m2 03/30/2025 Encounters Encounter Location Date Provider Diagnosis Kun Medrano MD [address] [place] [address] [address] [id number] 10/26/2024 Kun Medrano Blood tests prior to treatment or procedure Z01.812 Kun Medrano MD [address] [place] [address] Drive [address] [place] [id number] 12/03/2024 Kun Medrano Type 2 diabetes belinda itus without complication E11.9 and Pure hypercholesterolemia E78.00 Kun Medrano MD [address] [place] [address] Drive [address] [place] [id number] 12/10/2024 Kun Medrano Type 2 diabetes belinda itus without complication E11.9 ; Pure hypercholesterolemia E78.00 and Seizure disorder G40.909 Kun Medrano MD [address] [place] [address] Drive [address] [place] [address] [id number] 05/21/2025 Kun Medrano UTI (urinary tract infection) N39.0 and Polyuria R35.89 Kun Medrano MD [address] [place] [address] Drive [address] [place] [id number] 06/11/2025 Kun Medrano Blood tests for rout ine general physical examination Z00.00 ; Type 2 diabetes mellitus without complication E11.9 ; Pure hypercholesterolemia E78.00 ; Lymphocytosis D72.820 and Encounter for administration of vaccine Z23 Kun Medrano MD [address] [place] [id number] 06/16/2024 Kun Enider Type 2 diabetes belinda itus without complication E11.9 ; Annual physical exam Z00.00 ; Pure hypercholesterolemia E78.00 ; Seizure disorder G40.909 ; Vitamin D deficiency E55.9 ; Colon cancer screening Z12.11 and Depression screening Z13.31 Kun Medrano MD [address] [place] [address] [id number] 07/28/2024 Kun Medrano Type 2 diabetes belinda itus without complication E11.9 and Type 2 diabetes, controlled, with neuropathy E11.40 Kun Medrano MD [address] [place] [address] [id number] 10/22/2024 Kun Medrano 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 and Leg edema R60.0 Kun Medrano MD [address] [place] [address] [id number] 12/24/2024 Kun Medrano Type 2 diabetes belinda itus without complication E11.9 Kun Medrano MD [address] [place] [address] [id number] 02/09/2025 Kun Clarkardikalpesh Type 2 diabetes belinda itus without complication E11.9 and Dependent edema R60.9 Kun Medrano MD [address] [place] [address] [id number] 03/01/2025 Kun Medrano Type 2 diabetes belinda itus without complication E11.9 and Leg edema R60.0 Kun Medrano MD [address] [place] [address] [id number] 03/30/2025 Kun Medrano Type 2 diabetes belinda itus without complication E11.9 and Ecchymosis R58 Kun Medrano MD [address] [place] [address] [id number] 09/17/2024 Kun Medrano MD [address] [place] [address] [id number] 10/23/2024 Kun Merdano 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 Kun Medrano MD [address] [place] [address] [id number] 10/23/2024 Kun Medrano MD [address] [place] [address] [id number] 02/26/2025 Kun Medrano Type 2 diabetes belinda itus without complication E11.9 Kun Medrano MD [address] [place] [address] [id number] 03/25/2025 Kun Medrano MD [address] [place] [address] [id number] 06/16/2024 Kun Medrano MD [address] [place] [address] [id number] 07/20/2024 Kun Medrano MD [address] [place] [address] [id number] 09/18/2024 Kun Medrano MD [address] [place] [address] [id number] 09/18/2024 Kun Medrano MD [address] [place] [address] [id number] 10/05/2024 Kun Medrano MD [address] [place] [address] [id number] 10/16/2024 Kun Medrano MD [address] [place] [address] [id number] 10/22/2024 Kun Medrano MD [address] [place] [address] [id number] 10/22/2024 Kun Medrano MD [address] [place] [address] [id number] 10/25/2024 Kun Medrano MD [address] [place] [address] [id number] 11/02/2024 Kun Medrano MD [address] [place] [address] [id number] 11/04/2024 Kun Medrano MD [address] [place] [address] [id number] 12/22/2024 Kun Medrano MD [address] [place] [address] [id number] 12/29/2024 Kun Medrano MD [address] [place] [address] [id number] 01/05/2025 Kun Medrano MD [address] [place] [address] [id number] 01/05/2025 Kun Medrano MD [address] [place] [address] [id number] 01/05/2025 Kun Medrano MD [address] [place] [address] [id number] 01/14/2025 Kun Medrano MD [address] [place] [address] [id number] 02/07/2025 Kun Medrano MD [address] [place] [address] [id number] 02/24/2025 Kun Medrano MD [address] [place] [address] [id number] 02/26/2025 Kun Medrano Bronchitis 490 Kun Medrano MD [address] [place] [address] [id number] 02/26/2025 Kun Medrano MD [address] [place] [address] [id number] 02/26/2025 Kun Medrano MD [address] [place] [address] [id number] 03/26/2025 Kun Medrano MD [address] [place] [address] [id number] 05/11/2025 Kun Medrano MD [address] [place] [address] [id number] 05/11/2025 Kun Medrano MD [address] [place] [address] [id number] 05/20/2025 Kun Medrano Assessments Encounter Date Diagnosis (ICD Code) Assessment Notes Treatment Notes Treatment Clinical Notes Section Notes 10/26/2024 Blood tests prior to treatment or procedure (ICD-10 - Z01.812) 12/03/2024 Type 2 diabetes mellitus without complication (ICD-10 - E11.9) 12/10/2024 Type 2 diabetes mellitus without complication (ICD-10 - E11.9) 05/21/2025 UTI (urinary tract infection) (ICD-10 - N39.0) 05/21/2025 Polyuria (ICD-10 - R35.89) 06/11/[address] ine general physical examination (ICD-10 - Z00.00) 06/11/2025 Type 2 diabetes mellitus without complication (ICD-10 [...] to get ent evaluation/ order faxed to [facility] , ending diagnostic testing 10/22/2024 Leg edema [...] goal but hopefully will start on diet 06/11/2025 Pure hypercholesterolemia (ICD-10 - E78.00) 06/16/2024 Pure hypercholesterolemia (ICD-10 - E78.00) stable, will continue current regiment 12/10/2024 Seizure disorder (ICD-10 - G40.909) has not had any seizures in long period of time. will continue with present meds 06/11/2025 Lymphocytosis (ICD-1 0 - D72.820) 06/16/2024 Seizure disorder (ICD-10 - G40.909) not having seizures, followed by Neuro 06/11/2025 Encounter for administration of vaccine (ICD-10 - Z23) 06/16/2024 Vitamin D deficiency (ICD-10 - E55.9) stable, will continue current regiment 06/16/2024 Colon cancer screeni ng (ICD-10 - Z12.11) guaiac negatoive 06/16/2024 Depression screening (ICD-10 - Z13.31) negative screen Plan Of Treatment Pending Test Test Name Order Date Electrocardiogram (EKG) 03/20/2016 Electrocardiogram (EKG) 03/29/2017 Complete Blood Count Auto Diff Comprehensive Met. Panel 06/11/2025 Comprehensive [place]. Panel Fast Microalbumin, Random 06/11/2025 CT soft tissue neck w con 10/23/2024 CT soft tissue neck wo/w con 10/22/2024 UA ClnCatch+Micro w/rflx Cult 06/11/2025 Next Appt Details Provider Name:Kun Olivares ier, 06/18/2025 02:30:00 PM, [address], [place], [place], [id number], Insurance Providers Payer Name Payer Address Payer Phone Subscriber Number Group Number Insured Name Patient Relationship to Insured Coverage Start Date Coverage End Date [employer] [facility] [address] [place], [place] [id number] Johnny Wylie Self - patient is the insured Medical (General) History Medical History History ICD Code refuses flu vac colonoscopy 04/08 repeat due 5 yrs tejaa chano correa
== END 2025-06-11 10:57 | disposition home or self-care (01) ==
LOC: HO.LNP 10:56
PROVIDERS: Visit Provider Internal Medicine
DX: Z00.00 Encounter for general adult medical examination without abnormal findings (principal); E11.9 Type 2 diabetes mellitus without complications; E78.00 Pure hypercholesterolemia, unspecified; D72.820 Lymphocytosis (symptomatic); Z12.5 Encounter for screening for malignant neoplasm of prostate
CPT/HCPCS: 80053; 80061; 81001; 82043; 82570; 83036; 84153; 85025

== ENCOUNTER 2025-06-17 14:03 | Outpatient (AMB) | payer BC, SELFPAY ==
--- OUTSIDE RECORDS SUMMARY | 2025-02-26 10:32 | XMS_ITS ---
Author Organization Kun Medrano MD Address [address] [place] [phone] Care Team Providers Care Strategic Planning Director Name Role Phone Kun Medrano Primary Care Provider REASON FOR VISIT RF Lantus Medications Medication SIG (Take, Route, Frequency, Duration) Notes Start Date End Date Status Lantus SoloStar 100 UNIT/ML 54 units SQ Subcutaneous Once a day for 30 days Active Encounters Encounter Location Date Provider Diagnosis Kun Medrano MD 10 [facility] [address] [place] [phone] 02/26/2025 Kun Medrano Type 2 diabetes mellitus [...] Provider Name:Kun solitario, 06/18/2025 02:30:00 PM, 10 [facility], Suite [facility], [place], [place], [phone], Progress Notes * ANGELJohnny ADOB: [birth year] (64 yo M)Acc No.[id number]:02/26/2025 Patient: Johnny KERR :1960 A ge:64 Y S ex:Male Address:[address] [place] [address] * Refills Refill Lantus SoloStar Solution Pen-injector, 100 UNIT/ML, Subcutaneous, 15, 54 units SQ, Once a day, 30 days, Refills=5 * true * Date: Generated for Alan pina/Keaton/Roxieitting on: 05:04 PM EDT
--- OUTSIDE RECORDS SUMMARY | 2025-03-01 10:15 | XMS_ITS ---
Author Organization Kun Medrano MD Address [address] [place], [place] [address] Care Team Providers Care Msw Name Role Phone Kun Medrano Primary Care Provider [phone] Allergies No Known Allergies Results Component Value Reference Range Notes Blood Urea Nitrogen Reviewed date:03/02/2025 12:28:47 PM Interpretation: Performing Lab:[facility], [address] [place] [phone] Notes/Report: Blood Urea Nitrogen 14 9-16 mg/dL Creatinine Reviewed date:03/02/2025 12:28:38 PM Interpretation: Performing Lab:[facility], [address] [place] [phone] Notes/Report: Creatinine 0.90 0.5-1.4 mg/dL Estimated Glomerular Filt Rate > 60 Chronic Kidney Disease: Estimated GFR < 60 mL/min/1.73m2 Severe Kidney Disease: Estimated GFR < 15 mL/min/1.73m2 REASON FOR VISIT f/u Urgent Care, P-A from Urgent Care increased lasix 20mg tabs 2 tabs q AM 1 tab q PM x 5 days. today would be the last day of the increase. Medications Medication SIG (Take, Route, Frequency, Duration) Notes Start Date End Date Status Vitamin D 50 MCG (1999) 4 capsules Or ally Once a day Active Dilantin 100 MG as directed Orally 3 tabs q AM 2 Q PM Active Clobetasol Propionate 0.05 % APPLY EXTERNALLY TWO TIMES A DAY FOR 10 DAYS for 30 Active Depakote 500 MG as directed Orally five times a day Active Move Free Joint Health Advance - as directed Orally Active Aspir-Low 81 MG 1 tablet Orally Once a day for 30 day(s) 07/03/2012 Active Lantus SoloStar 100 UNIT/ML 54 units SQ Subcutaneous Once a day Active Multi Vitamin Mens as directed Orally Active Furosemide 40 MG TAKE ONE TABLET BY MOUTH EVERY DAY Orally Once a day for 30 days Active BD Pen Needle Mini U/F 31G X 5 MM as directed sq daily for 90 days 10/10/2018 Active ProAir HFA 108 (90 Base) MCG/ACT 2 puffs as needed Inhalation every 4 hrs for 30 days 09/18/2013 Active metFORMIN HCl 500 MG 2 tabs at supper Orally Once a day Active Dexcom G6 Transmitter - USE DIRECTED for 30 Active Zituvio 100 MG 1 tablet Orally Once a day for 30 days 09/18/2024 Active Cyclobenzaprine HCl 5 MG 1 tablet at bed time as needed Orally twice a day for 7 days 11/02/2021 Not-Taking Dexcom G7 Engine Pilot - as directed Active Dexcom G6 Engine Pilot - as directed 07/28/2024 Active Rosuvastatin Calcium 40 MG TAKE 1 TABLET BY MOUTH ONCE DAILY for 30 Active Dexcom G6 Sensor - as directed for 14 days 07/28/2024 Active Vital Signs Blood pressure systolic 142 mm Hg 03/01/20 25 Blood pressure diastolic 60 mm Hg 025 Height 61 in 03/01/2025 Weight 202 lbs 03/01/2025 BMI 38.16 kg/m2 03/01/2025 weight is down 2 pounds [facility] e 02-09-25 Encounters Encounter Location Date Provider Diagnosis Kun Medrano MD [address] [place] [address] [place] [id number] 03/01/2025 Kun Medrano Type 2 diabetes mellitus without complication E11.9 and Leg edema R60.0 Assessments Encounter Date Diagnosis (ICD Code) Assessment Notes Treatment Notes Treatment Clinical Notes Section Notes 03/01/2025 Type 2 diabetes mellitus without complication (ICD-10 - E11.9) 03/01/2025 Leg edema (ICD-10 - R60.0) had doppler of lower extremities and negative Plan Of Treatment Medication Medication Name Sig Start Date Stop Date Notes Lantus SoloStar 100 UNIT/ML 54 units SQ Subcutaneous Once a day Furosemide 40 MG TAKE ONE TABLET BY M OUTH EVERY DAY Orally Once a day for 30 days metFORMIN HCl 500 MG 2 tabs at supper Or ally Once a day Treatment Notes Assessment Notes Leg edema had doppler of lower extremities and negative Next Appt Details Follow Up: 4 Weeks, Reason: Provider Name:Kun Olivares ier, 06/18/2025 02:30:00 PM, [address], [address], [place], [place], [phone], Progress Notes * Johnny WYLIE ADOB: [birth year] (64 yo M)Acc No.[id number]:03/01/2025 Progress Notes Patient: Johnny KERR Provider: Murray Medrano MD :1960 A ge:64 Y S ex:Male Date:03/01/2025 Address:[address] [place] [address] [facility] Subjective: * Chief Complaints: * f /u Urgent CareP-[facility] from Urgent Care increased lasix 20mg tabs 2 tabs q AM 1 tab q PM x 5 days. today would be the last day of the increase. * HPI: S ymptom(s): patient is a 64 yo male here with complaint of bilateral ankle edema. * ROS: G eneral/Constitutional: Denies C hills. D enies F atigue. D enies F ever. D enies H eadache. E NT: Denies S ore throat. R espiratory: Denies C ough. D enies S hortness of breath at rest. D enies S hortness of breath with exertion. C ardiovascular: Denies C hest pain at rest. D enies D izziness.?Admits F luid accumulation in the legs. D enies P alpitations. D enies S hortness of breath. G astrointestinal: Denies D iarrhea. D enies N ausea. * Medical History: * Surgical History: * Hospitalization/Major Diagno stic Procedure: * Medications: T akingAspir-Low 81 MG Tablet Delayed Release 1 tablet Orally Once a day Multi Vitamin Mens Tablet as directed Orally BD Pen Needle Mini U/F 31G X 5 MM Miscellaneous as directed sq daily Move Free Joint Health Advance - Tablet as directed Orally Clobetasol Propionate 0.05 % Cream APPLY EXTERNALLY TWO TIMES A DAY FOR 10 DAYS Depakote 500 MG Tablet Delayed Release as directed Orally five times a day Vitamin D 50 MCG (1999) Tablet 4 capsules Orally Once a day Dilantin 100 MG Capsule as directed Orally 3 tabs q AM 2 Q PM Rosuvastatin Calcium 40 MG Tablet TAKE 1 TABLET BY MOUTH ONCE DAILY Dexcom G6 Sensor - Miscellaneous as directed Dexcom G7 Engine Pilot - Device as directed Dexcom G6 Engine Pilot - Device as directed Dexcom G6 Transmitter - Miscellaneous USE DIRECTED Zituvio 100 MG Tablet 1 tablet Orally Once a day metFORMIN HCl 500 MG Tablet 2 tabs at supper Orally Once a day Furosemide 20 MG Tablet TAKE ONE TABLET BY MOUTH EVERY DAY ProAir HFA 108 (90 Base) MCG/ACT Aerosol Solution 2 puffs as needed Inhalation every 4 hrs Lantus SoloStar 100 UNIT/ML Solution Pen-injector 54 units SQ Subcutaneous Once a day Taking Aspir-Low 81 MG Tablet Delayed Release 1 tablet Orally Once a day Taking Multi Vitamin Mens Tablet as directed Orally Taking BD Pen Needle Mini U/F 31G X 5 MM Miscellaneous as directed sq daily Taking Move Free Joint Health Advance - Tablet as directed Orally Taking Clobetasol Propionate 0.05 % Cream APPLY EXTERNALLY TWO TIMES A DAY FOR 10 DAYS Taking Depakote 500 MG Tablet Delayed Release as directed Orally five times a day Taking Vitamin D 50 MCG (1999) Tablet 4 capsules Orally Once a day Taking Dilantin 100 MG Capsule as directed Orally 3 tabs q AM 2 Q PM Taking Rosuvastatin Calcium 40 MG Tablet TAKE 1 TABLET BY MOUTH ONCE DAILY Taking Dexcom G6 Sensor - Miscellaneous as directed Taking Dexcom G7 Engine Pilot - Device as directed Taking Dexcom G6 Engine Pilot - Device as directed Taking Dexcom G6 Transmitter - Miscellaneous USE DIRECTED Taking Zituvio 100 MG Tablet 1 tablet Orally Once a day Taking metFORMIN HCl 500 MG Tablet 2 tabs at supper Orally Once a day Taking Furosemide 20 MG Tablet TAKE ONE TABLET BY MOUTH EVERY DAY Taking ProAir HFA 108 (90 Base) MCG/ACT Aerosol Solution 2 puffs as needed Inhalation every 4 hrs Taking Lantus SoloStar 100 UNIT/ML Solution Pen-injector 54 units SQ Subcutaneous Once a day Not-Taking/PRNCyclobenzaprine HCl 5 MG Tablet 1 tablet at bedtime as needed Orally twice a day Not-Taking/PRN Cyclobenzaprine HCl 5 MG Tablet 1 tablet at bedtime as needed Orally twice a day * Allergies: N .K.D.A.yes[Allergies Verified] Objective: * Vitals: H t: 61, Wt: 202, BMI:38.16, BP:142/60, Repeat BP:120/60, Wt-k.63. weight is down 2 pounds since 02-09-25. * Examination: G eneral Examination: GENERAL APPEARANCE: w ell developed, well nourished. HEAD: n ormocephalic. SKIN: g ood turgor. HEART: n ormal. LUNGS: n o wheezes, rales, rhonchi, good air movement, clear to auscultation bilaterally. ABDOMEN: s oft, nontender, nondistended. EXTREMITIES: a bnormal, 4+ pitting edema lower extremities, 4+ pitting edema lower extremities. Assessment: * Assessment: 1. L eg edema - R60.0 (Primary) 2 . T ype 2 diabetes mellitus without complication - E11.9 Plan: * Treatment: 2. T ype 2 diabetes mellitus without complication Continue metFORMIN HCl Tablet, 500 MG, 2 tabs at supper, Orally, Once a day; C ontinue Lantus SoloStar Solution Pen-injector, 100 UNIT/ML, 54 units SQ, Subcutaneous, Once a day. * Procedure Codes: 3 6415 VENIPUNCT, ROUTINE* * Follow Up: 4 Weeks * * Sign off status: Completed true * Provider: Murray Medrano MD Date: 0 03/01/2025 Generated for Alan pina/Keaton/eTtj on: 05:06 PM EDT History and Physical Notes * HPI (History of Present Illness) Category Sub-Category Detail Notes Category Not es Symptom(s) patient is a 64 yo male here with complaint of bilateral ankle edema Examination Category Sub-Category Detail Notes Category Not es General Examination GENERAL APPEARANCE: well developed , well nourished HEAD: normocephalic HEART: normal LUNGS: no wheezes, rales, r honchi, good air movement, clear to auscultation bilaterally ABDOMEN: soft, nontender, non distended SKIN: good turgor EXTREMITIES: abnormal, 4+ pitting edema lower extremities, 4+ pitting edema lower extremities
--- OUTSIDE RECORDS SUMMARY | 2025-03-25 08:48 | XMS_ITS ---
Author Organization Kun Medrano MD Address [address] [place] [phone] Care Team Providers Care Rumper Name Role Phone Kun Medrano Primary Care Provider REASON FOR VISIT foot turning blue Encounters Encounter Location Date Provider Diagnosis Kun Medrano MD 10 [facility] [address] [place] [phone] 03/25/2025 Kun Medrano Plan Of Treatment Next Appt Details Provider Name:Kun Olivares ier, 06/18/2025 02:30:00 PM, [address] [place] [address], Suite [facility], [place], [place], [phone], Progress Notes * Johnny WYLIE ADOB: [birth year] (64 yo M)Acc No.[id number]:03/25/2025 Patient: Johnny KERR :1960 A ge:64 Y S ex:Male Address:[address] [place] [address] [place] [address] * true * Date: Generated for Printi ng/Faxing/eTransmitting on: 1 05:05 PM EDT
--- OUTSIDE RECORDS SUMMARY | 2025-03-26 05:12 | XMS_ITS ---
Author Organization Kun Medrano MD Address [address] [place] [phone] Care Team Providers Care Jack Spinner Name Role Phone Kun Medrano Primary Care Provider REASON FOR VISIT foot Encounters Encounter Location Date Provider Diagnosis Kun Medrano MD 10 [facility] [address] [place] [phone] 03/26/2025 Kun Medrano Plan Of Treatment Next Appt Details Provider Name:Kun Olivares ier, 06/18/2025 02:30:00 PM, [address] [place] [address], Suite [facility], [place], [place], [phone], Progress Notes * Johnny WYLIE ADOB: [birth year] (64 yo M)Acc No.[id number]:03/26/2025 Patient: Johnny KERR :1960 A ge:64 Y S ex:Male Address:[address] [place] [address] [place] [address] * true * Date: Generated for Printi ng/Faxing/eTransmitting on: 1 05:04 PM EDT
--- OUTSIDE RECORDS SUMMARY | 2025-03-30 07:30 | XMS_ITS ---
Author Organization Kun Medrano MD Address [address] [place], [place] [phone] Care Team Providers Care Driftman Name Role Phone Kun Medrano Primary Care Provider [phone] Allergies No Known Allergies Results Component Value [...] ONCE DAILY for 30 Active Dexcom G7 Internal Controls Specialist - as directed Active Dexcom G6 Sensor - as directed for 14 days 07/28/2024 Active Dexcom G6 Transmitter - USE DIRECTED for 30 Active Dexcom G6 Internal Controls Specialist - as directed 07/28/2024 Active Dilantin 100 [...] Date Provider Diagnosis Kun Medrano MD 10 [facility] [address] [place] [phone] 03/30/2025 Kun Medrano Type 2 diabetes mellitus [...] Name:Kun Olivares ier, 06/18/2025 02:30:00 PM, [address] [facility] [address], [address], [place], [place], [phone], Progress Notes * Johnny WYLIE ADOB: [birth year] (64 yo M)Acc No.[id number]:03/30/2025 Progress Notes Patient: Fran CORTESALANNAJohnny Provider: Murray Medrano MD :1960 A ge:64 Y S ex:Male Date:03/30/2025 Address:[address] [place], [place] [phone] Subjective: * Chief Complaints: * 4 WEEKS [...] Sensor - Miscellaneous as directed Dexcom G7 Internal Controls Specialist - Device as directed Dexcom G6 Internal Controls Specialist - Device as directed Dexcom G6 Transmitter [...] - Miscellaneous as directed Taking Dexcom G7 Internal Controls Specialist - Device as directed Taking Dexcom G6 Internal Controls Specialist - Device as directed Taking Dexcom G6 [...] 2947 ASSAY, GLUCOSE, BLOOD QUANT, Modifiers: QW 66524 GLYCATED HEMOGLOBIN TEST, Modifiers: QW * * Sign off status: Completed true * Provider: Murray Medrano MD Date: 0 03/30/2025 Generated for Printi ng/Faalieg/eTransmitting on: 1 05:05 PM EDT History and Physical Notes * [...]
--- OUTSIDE RECORDS SUMMARY | 2025-05-11 03:21 | XMS_ITS ---
Author Organization Kun Medrano MD Address [address] [place] [phone] Care Team Providers Care Acid Tank Cleaner Name Role Phone Kun Medrano Primary Care Provider [phone] REASON FOR VISIT [facility] portal Encounters Encounter Location Date Provider Diagnosis Kun Medrano MD 10 [facility] [address] [place] [phone] 05/11/2025 Kun Medrano Plan Of Treatment Next Appt Details Provider Name:Kun Olivares ier, 06/18/2025 02:30:00 PM, [address] [place] [address], Suite [facility], [place], [place], [phone], Progress Notes * Johnny WYLIE ADOB: [birth year] (64 yo M)Acc No.[id number]:05/11/2025 Patient: Johnny KERR :1960 A ge:64 Y S ex:Male Address:[address] [place] [address] [place] [address] * true * Date: Generated for Printi ng/Faxing/eTransmitting on: 1 05:04 PM EDT
--- OUTSIDE RECORDS SUMMARY | 2025-05-11 05:09 | XMS_ITS ---
Author Organization Kun Medrano MD Address [address] [place] [phone] Care Team Providers Care Food Order Delivery Runner Name Role Phone Kun Medrano Primary Care Provider REASON FOR VISIT portal Encounters Encounter Location Date Provider Diagnosis Kun Medrano MD [address] [facility] [address] [place] [phone] 05/11/2025 Kun Medrano Plan Of Treatment Next Appt Details Provider Name:Kun Olivares ier, 06/18/2025 02:30:00 PM, [address] [place] [address], Suite [facility], [place], [place], [phone], Progress Notes * Johnny WYLIE ADOB: [birth year] (64 yo M)Acc No.[id number]:05/11/2025 Patient: Johnny KERR :1960 A ge:64 Y S ex:Male Address:[address] [place] [address] [place] [address] * true * Date: Generated for Printi ng/Faxing/eTransmitting on: 1 05:04 PM EDT
--- OUTSIDE RECORDS SUMMARY | 2025-05-20 13:21 | XMS_ITS ---
Author Organization Kun Medrano MD Address [address] [place] [phone] Care Team Providers Care Engineer Design And Construction Name Role Phone Kun Medrano Primary Care Provider REASON FOR VISIT fishing Encounters Encounter Location Date Provider Diagnosis Kun Medrano MD 10 [facility] [address] [place] [phone] 05/20/2025 Kun Medrano Plan Of Treatment Next Appt Details Provider Name:Kun Olivares ier, 06/18/2025 02:30:00 PM, [address] [place] [address], Suite [facility], [place], [place], [phone], Progress Notes * Johnny WYLIE ADOB: [birth year] (64 yo M)Acc No.[id number]:05/20/2025 Patient: Johnny KERR :1960 A ge:64 Y S ex:Male Address:[address] [place] [address] [place] [address] * true * Date: Generated for Printi ng/Faxing/eTransmitting on: 05:05 PM EDT
--- OUTSIDE RECORDS SUMMARY | 2025-05-21 06:15 | XMS_ITS ---
Author Organization Kun Medrano MD Address [address] [place], [place] [phone] Care Team Providers Care Coldfusion Name Role Phone Kun Medrano Primary Care Provider Results Component Value Reference Range Notes UA ClnCatch+Micro w/rflx Cul t Reviewed date:05/26/2025 04:16:25 PM Interpretation: Performing Lab:[facility], [address] [place] [phone] Notes/Report: Urine, Clean Catch Color Urine Yellow Appearance Urine Clear PH 5.5 5.0-9.0 Glucose Urine UA Negative Negative mg/dL Urine Blood Negative Negative Specific [place] - Urine 1.015 1.005-1.025 Urine Protein Negative [...] Kun Medrano MD [address] [place] [phone] 05/21/2025 Kun Medrano UTI (urinary tract infection) N39.0 and Polyuria R35.89 Assessments Encounter Date Diagnosis (ICD Code) Assessment Notes Treatment Notes Treatment Clinical Notes Section Notes 05/21/2025 UTI (urinary tract infection) (ICD-10 - N39.0) 05/21/2025 Polyuria (ICD-10 - R35.89) Plan Of Treatment Next Appt Details Provider Name:Kun Olivares ier, 06/18/2025 02:30:00 PM, 10 [facility], [address], [place], [place], [phone], Progress Notes * Johnny WYLIE ADOB: [birth year] (64 yo M)Acc No.[id number]:05/21/2025 Progress Note Patient: Johnny KERR Provider: Murray Medrano MD :1960 A ge:64 Y S ex:Male Date:05/21/2025 Address:[address] [place], [place] [phone] Subjective: * Chief Complaints: * 1 . [...] MD Date: Generated for Alan pina/Keaton/Roxieitting on: 05:05 PM EDT
--- OUTSIDE RECORDS SUMMARY | 2025-06-11 04:15 | XMS_ITS ---
Author Organization Kun Medrano MD Address [address] [place], [place] [id number] Care Team Providers Care Bottled Beverage Inspector Name Role Phone Kun Medrano Primary Care Provider [phone] Results Component Value Reference Range Notes Complete Blood Count Auto Di ff Reviewed date:06/11/2025 04:53:18 PM Interpretation: Performing Lab:[facility], [address] [place] [phone] Notes/Report: White Blood Count 5.7 4.8-10.8 X10*3/uL [...] 0.00-0.03 X10*3/uL Lymphocytes Absolute Auto 2.6 1.2-4.9 X10*3/ uL Monocytes Absolute Auto 0.5 0.1-1.2 X10*3/uL Eosinophils Absolute Auto 0.5 0.0-0.4 X10*3/u L Basophils Absolute Auto 0.1 0.0-0.2 X10*3/uL NRBC Abs Auto 0.000 0.0-0.012 X10*3/uL Lipid Panel Reviewed date:06/11/2025 12:15:52 PM Interpretation: Performing Lab:[address] [phone] Notes/Report: Triglycerides 373 <150 mg/dL Desirable Triglyceride: [...] (Free>4and<10) Reviewed date:06/11/2025 12:08:41 PM Interpretation: Performing Lab:[address] [phone] Notes/Report: PSA,Total (Free>4and<10) 0.49 0.00-4.00 ng/mL A [...] Perry Alinity i Chemiluminescent Microparticle Immunoassay (CMIA) Microalbumin, Random Reviewed date:06/11/2025 04:48:39 PM Interpretation: Performing Lab:[address] [phone] Notes/Report: Creatinine Urine 131.59 Microalbumin Urine 5.0 Microalbum/Creatinine Ratio Ur 3.7 <30 ug/mg cr Albumin/Creatinine Ratio Reference Ranges: Normal: < 30 ug/mg creatinine Microalbuminuria: 30 - 300 ug/mg creatinine Clinical Albuminuria: > 300 ug/mg creatinine Hemoglobin A1c Reviewed date:06/11/2025 12:28:28 PM Interpretation: Performing Lab:[address] [phone] Notes/Report: Hemoglobin A1c % 7.6 <6.0 % [...] average glucose, using the formula of the A3O-Xdevvzh Average Glucose study (ADAG), Diabetes Care, Vol.31,#8, Mar. 2007 UA ClnCatch+Micro w/rflx Cul t Reviewed date:06/11/2025 04:55:11 PM Interpretation: Performing Lab:[address] [phone] Notes/Report: Urine, Clean Catch Color Urine Yellow Appearance Urine Clear PH 6.0 5.0-9.0 Glucose Urine UA Negative Negative mg/dL Urine Blood Negative Negative Specific Orwell - Urine 1.020 1.005-1.025 Urine Protein Negative Neg-Trace mg/dL Urine Ketones Trace Negative mg/dL Nitrite Urine Negative Negative Leukocyte Esterase Urine Negative Negative RBC Urine 0-2 0-2 /HPF WBC Urine 0-5 0-5 /HPF Squamous Epithelial Cell Urine 0-2 0-2 /HPF Bacteria Urine None Seen None Seen Hyaline Casts Urine 0-2 0-2 /LPF REASON FOR VISIT yearly fasting labs Immunizations Vaccine Route Administration Date Status Comme nts Influenza High Dose IM Intramuscular 06/11/2025 Administer ed Encounters Encounter Location Date Provider Diagnosis Kun Medrano MD [address] [place] [phone] 06/11/2025 Kun Medrano Blood tests for rout ine general physical examination Z00.00 ; Encounter for administration of vaccine Z23 ; Type 2 diabetes mellitus without complication E11.9 ; Pure hypercholesterolemia E78.00 and Lymphocytosis D72.820 Assessments Encounter Date Diagnosis (ICD Code) Assessment Notes Treatment Notes Treatment Clinical Notes Section Notes 06/11/2025 Blood tests for rout ine general physical examination (ICD-10 - Z00.00) 06/11/2025 Encounter for administration of vaccine (ICD-10 - Z23) 06/11/2025 Type 2 diabetes belinda itus without complication (ICD-10 - E11.9) 06/11/2025 Pure hypercholesterolemia (ICD-10 - E78.00) 06/11/2025 Lymphocytosis (ICD-1 0 - D72.820) Plan Of Treatment Pending Test Test Name Order Date Comprehensive Lynn. Panel Fast Next Appt Details Provider Name:Kun Olivares ier, 06/18/2025 02:30:00 PM, [address], [address], [place], [place], [id number], Progress Notes * Johnny WYLIE ADOB: [birth year] (64 yo M)Acc No.[id number]:06/11/2025 Progress Note Patient: Fran Johnny MONSON Provider: Murray Medrano MD :1960 A ge:64 Y S ex:Male Date:06/11/2025 Address: [place], [id number] Subjective: * Chief Complaints: * 1 . Yearly fasting labs. * Medical History: Objective: * Vitals: Assessment: * Assessment: 1. B lood tests for routine general physical examination - Z00.00 (Primary) 2 .?Encounter for administration of vaccine - Z23 3 . T ype 2 diabetes mellitus without complication - E11.9 4 . P ure hypercholesterolemia - E78.00 & #160; 5 . L ymphocytosis - D72.820 Plan: * Treatment: 2. T ype 2 diabetes mellitus without complication L AB: Comprehensive Lynn. Panel Fast L AB: Complete Blood Count Auto Diff (Collection Date & Time - 06/11/2025 08:15 AM) L AB: Lipid Panel (Collection Date & Time - 06/11/2025 08:15 AM) L AB: PSA,Total (Free>4and<10) (Collection Date & Time - 06/11/2025 08:15 AM) L AB: Microalbumin, Random (Collection Date & Time - 06/11/2025 08:15 AM) L AB: Hemoglobin A1c (Collection Date & Time - 06/11/2025 08:15 AM) L AB: UA ClnCatch+Micro w/rflx Cult (Collection Date & Time - 06/11/2025 08:15 AM) 3. P ure hypercholesterolemia L AB: Comprehensive Lynn. Panel Fast L AB: Complete Blood Count Auto Diff (Collection Date & Time - 06/11/2025 08:15 AM) L AB: Lipid Panel (Collection Date & Time - 06/11/2025 08:15 AM) L AB: PSA,Total (Free>4and<10) (Collection Date & Time - 06/11/2025 08:15 AM) L AB: Microalbumin, Random (Collection Date & Time - 06/11/2025 08:15 AM) L AB: Hemoglobin A1c (Collection Date & Time - 06/11/2025 08:15 AM) L AB: UA ClnCatch+Micro w/rflx Cult (Collection Date & Time - 06/11/2025 08:15 AM) 4. L ymphocytosis L AB: Comprehensive Lynn. Panel Fast L AB: Complete Blood Count Auto Diff (Collection Date & Time - 06/11/2025 08:15 AM) L AB: Lipid Panel (Collection Date & Time - 06/11/2025 08:15 AM) L AB: PSA,Total (Free>4and<10) (Collection Date & Time - 06/11/2025 08:15 AM) L AB: Microalbumin, Random (Collection Date & [...] * Procedure Codes: 3 6415 VENIPUNCT, ROUTINE*, 52102 FLU VACC PRSV FREE INC ANTIG, 14981 IMMUNIZATION ADMIN * * The named appointment provid er may or may not be the originator of this progress note, and it is not deemed complete until electronically signed by the appointment provider. Sign off status: Pending * Provider: Murray Medrano MD Date: Generated for Alan pina/Keaton/Peterson on: 05:04 PM EDT
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
--- OUTSIDE RECORDS SUMMARY | 2025-06-17 17:04 | XMS_ITS | Patient Health Record ---
Author Organization [facility] Address [address] [place] [address] Care Team Providers Care Histology Technologist Name Role Phone Mitchell HUNG, Kun Primary Care Provider Bernadette Pruitt Unavailable [phone] Allergies No Known Allergies Reason For Referral [...] Problem Screening for malignant neoplasm of colon (713675489) Encounter for screening for malignant neoplasm of colon (Z12.11) Active confirmed Problem Preprocedural examination (802978891309222) Preprocedural examination (Z01.818) Active confirmed Problem Long-term current use of aspirin (119248589370073) Aspirin long-term use (Z79.82) Active confirmed Problem Diverticular disease of colon (030074911) Diverticular disease of colon (K57.30) Active confirmed Plan Of Treatment Future Test Test Name Order Date COLONOSCOPY 02/28/2021 Insurance Providers Payer Name Payer Address Payer Phone Subscriber Number Group Number Insured Name Patient Relationship to Insured Coverage Start Date Coverage End Date [facility] [address] [place], [place] [id number] BERNADETTE ORITZ Self - patient is the insured Medical (General) History Medical History History ICD Code NIDDM Seizures Edema Neg. screening colonoscopy in 01/2011 Hyperlipidemia Denies [place],CVA,Lung disease,renal disease Surgical History Surgery Date(Month/Year) Benign mole removal from back
--- OUTSIDE RECORDS SUMMARY | 2025-06-17 17:05 | XMS_ITS | Patient Health Record ---
Author Organization Kun Medrano MD Address [address] [place], [place] [id number] Care Team Providers Care Chief Ultrasound Technologist Name Role Phone Kun Medrano Primary Care Provider [phone] Allergies No Known Allergies Results Component Value Reference Range Notes Hemoglobin A1c Reviewed date:12/10/2024 02:09:04 PM Interpretation: Performing Lab: Notes/Report: Hemoglobin A1c 8.4 Hemoglobin A1c Reviewed date:03/30/2025 11:28:06 AM Interpretation: Performing Lab: Notes/Report: Hemoglobin A1c 7.3 Blood Urea Nitrogen Reviewed date:10/26/2024 12:45:27 PM Interpretation: Performing Lab:[facility], [address] [place] [phone] Notes/Report: Blood Urea Nitrogen 12 9-16 mg/dL Creatinine Reviewed date:10/26/2024 12:36:35 PM Interpretation: Performing Lab:[facility], [address] [place] [address] Notes/Report: Creatinine 0.67 0.5-1.4 mg/dL Estimated Glomerular Filt Rate > 60 Chronic Kidney Disease: Estimated GFR < 60 mL/min/1.73m2 Severe Kidney Disease: Estimated GFR < 15 mL/min/1.73m2 Liver Panel Reviewed date:12/03/2024 06:04:19 PM Interpretation: Performing Lab:[facility], [address] [place] [address] Notes/Report: Bilirubin Total 0.4 0.0-1.0 mg/dL Bilirubin Direct 0.1 0.0-0.5 mg/dL Aspartate Amino Transferase 25 5-37 U/L Alanine Aminotransferase 33 0-40 U/L Total Protein 6.6 6.5-8.0 g/dL Albumin Level 4.1 3.5-5.0 g/dL Alkaline Phosphatase 68 39-117 U/L Glucose Fasting Reviewed date:12/03/2024 05:55:26 PM Interpretation: Performing Lab:[facility], [address] [place] [address] Notes/Report: Glucose Fasting 194 60-99 mg/dL A fasting glucose of 126 mg/dl or greater on more than one occasion is considered diagnostic of diabetes. Lipid Panel with Reflex Reviewed date:12/03/2024 06:07:40 PM Interpretation: Performing Lab:[facility], [address] [place] [address] Notes/Report: Triglycerides 231 <150 mg/dL Desirable Triglyceride: [...] A1c Reviewed date:12/03/2024 05:55:35 PM Interpretation: Performing Lab:[facility], [address] [place] [address] Notes/Report: Hemoglobin A1c % 8.0 <6.0 % [...] average glucose, using the formula of the X5H-Njiywgx Average Glucose study (ADAG), Diabetes Care, Vol.31,#8, Mar. 2007 Glucose, finger stick Reviewed date:12/10/2024 02:02:56 PM Interpretation: Performing Lab: Notes/Report: Value 233 UA ClnCatch+Micro w/rflx Cul t Reviewed date:05/26/2025 04:16:25 PM Interpretation: Performing Lab:[facility], [address] [place] [address] Notes/Report: Urine, Clean Catch Color Urine Yellow Appearance Urine Clear PH 5.5 5.0-9.0 Glucose Urine UA Negative Negative mg/dL Urine Blood Negative Negative Specific [place] - Urine 1.015 1.005-1.025 Urine Protein Negative [...] ff Reviewed date:06/11/2025 04:53:18 PM Interpretation: Performing Lab:[facility], [address] [place] [address] Notes/Report: White Blood Count 5.7 4.8-10.8 X10*3/uL [...] Panel Reviewed date:06/11/2025 12:15:52 PM Interpretation: Performing Lab:[facility], [address] [place] [address] Notes/Report: Triglycerides 373 <150 mg/dL Desirable Triglyceride: [...] (Free>4and<10) Reviewed date:06/11/2025 12:08:41 PM Interpretation: Performing Lab:[address] [address] Notes/Report: PSA,Total (Free>4and<10) 0.49 0.00-4.00 ng/mL A [...] Random Reviewed date:06/11/2025 04:48:39 PM Interpretation: Performing Lab:[address] [address] Notes/Report: Creatinine Urine 131.59 Microalbumin Urine 5.0 Microalbum/Creatinine Ratio Ur 3.7 <30 ug/mg cr Albumin/Creatinine Ratio Reference Ranges: Normal: < 30 ug/mg creatinine Microalbuminuria: 30 - 300 ug/mg creatinine Clinical Albuminuria: > 300 ug/mg creatinine Hemoglobin A1c Reviewed date:06/11/2025 12:28:28 PM Interpretation: Performing Lab:[address] [address] Notes/Report: Hemoglobin A1c % 7.6 <6.0 % [...] average glucose, using the formula of the Q1L-Mbrdfvw Average Glucose study (ADAG), Diabetes Care, Vol.31,#8, Mar. 2007 UA ClnCatch+Micro w/rflx Cul t Reviewed date:06/11/2025 04:55:11 PM Interpretation: Performing Lab:[facility], [address] [place] [address] Notes/Report: Urine, Clean Catch Color Urine Yellow Appearance Urine Clear PH 6.0 5.0-9.0 Glucose Urine UA Negative Negative mg/dL Urine Blood Negative Negative Specific [place] - Urine 1.020 1.005-1.025 Urine Protein Negative [...] Nitrogen Reviewed date:03/02/2025 12:28:47 PM Interpretation: Performing Lab:[facility], [address] [place] [address] Notes/Report: Blood Urea Nitrogen 14 9-16 mg/dL Creatinine Reviewed date:03/02/2025 12:28:38 PM Interpretation: Performing Lab:[facility], [address] [place] [address] Notes/Report: Creatinine 0.90 0.5-1.4 mg/dL Estimated Glomerular Filt Rate > 60 Chronic Kidney Disease: Estimated GFR < 60 mL/min/1.73m2 Severe Kidney Disease: Estimated GFR < 15 mL/min/1.73m2 Glucose, finger stick Reviewed date:03/30/2025 11:21:52 AM Interpretation: Performing Lab: Notes/Report: Value 313 Hold Gold Reviewed date:12/03/2024 05:55:43 PM Interpretation: Performing Lab:[facility], [address] [place] [phone] Notes/Report: Hold Gold See Note Specimen held untested for 24 hours; Call to request Chemistry testing. US venous duplex LE LT Reviewed date:02/26/2025 04:42:11 PM Interpretation: Performing Lab: Notes/Report: [facility] [address] [place] [address] [place] [address] Ultrasound Report Signed Patient: Johnny Wylie MR#: [id number] : 1960 Acct:[id number] Age/Sex: 64 / M ADM Date: 02/26/25 Loc: HO.HMGCX Attending Dr: Ericka Louis PA-C Ordering Physician: Ericka Louis PA-C Date of Service: 02/26/25 Procedure(s): US venous duplex LE LT Accession Number(s): [id number] cc: Kun Medrano MD; Ericka Louis PA-C [...] 02/26/25 1330 DD/ 1310 TD/TT: 02/26/25 1326 Vacuum Tester Cans: [facility] [address] [place] [address] [place] [address] Ultrasound Report Signed Patient: Johnny Wylie MR#: [id number] [id number] : 1960 Acct:[id number] Age/Sex: 64 / M ADM Date: 02/26/25 Loc: HO.HMGCX Attending Dr: Lauryn Louis PA-C Ordering Physician: Ericka Louis PA-C Date of Service: 02/26/25 Procedure(s): US venous duplex LE LT Accession Number(s): [id number] cc: Kun Medrano MD; Ericka Louis PA-C [...] 02/26/25 1330 DD/ 1310 TD/TT: 02/26/25 1326 Vacuum Tester Cans: Complete Blood Count Auto Di ff Reviewed date:03/25/2025 03:05:03 PM Interpretation: Performing Lab:[facility], [address] [place] [address] Notes/Report: White Blood Count 4.9 4.8-10.8 X10*3/uL [...] Panel Reviewed date:03/25/2025 08:01:13 PM Interpretation: Performing Lab:[facility], [address] [place] [phone] Notes/Report: Sodium 142 135-145 mmol/L Potassium 4.6 [...] Peptide Reviewed date:03/25/2025 03:10:47 PM Interpretation: Performing Lab:[facility], [address] [place] [address] Notes/Report: B Type Natriuretic Peptide 30 <100 pg/mL US venous duplex LE LT Reviewed date:03/25/2025 07:55:46 PM Interpretation: Performing Lab: Notes/Report: [address] [address] Ultrasound Report Signed Patient: Johnny Wylie MR#: [id number] 2670 : 1960 Acct:[id number] Age/Sex: 64 / M ADM Date: 03/25/25 Loc: .ED Attending Dr: Ordering Physician: Anneliese Lazaro Date of Service: 03/25/25 Procedure(s): US venous duplex LE LT Accession Number(s): [id number] cc: Kun Medrano MD; Anneliese Lazaro CLINICAL [...] in OV> 03/25/251920 DD/ 19 TD/TT: 03/25/251919 Vacuum Tester Cans: [address] [address] Ultrasound Report Signed Patient: Johnny Wylie MR#: [id number] : 1960 Acct:[id number] Age/Sex: 64 / M ADM Date: 03/25/25 Loc: HO.ED Attending Dr: Ordering Physician: Anneliese Lazaro Date of Service: 03/25/25 Procedure(s): US venous duplex LE LT Accession Number(s): [id number] cc: Kun Medrano MD; Anneliese Lazaro CLINICAL [...] in OV> 03/25/251920 DD/ 19 TD/TT: 03/25/251919 Vacuum Tester Cans: XR foot LT min 3V Reviewed date:03/25/2025 03:13:07 PM Interpretation: Performing Lab: Notes/Report: [address] [address] XRay Report Signed Patient: Johnny Wylie MR#: [id number] : 1960 Acct:[id number] Age/Sex: 64 / M ADM Date: 03/25/25 Loc: HO.ED Attending Dr: Ordering Physician: Simin Olsen NP Date of Service: 03/25/25 Procedure(s): XR foot LT min 3V Accession Number(s): [id number] cc: Kun Medrano MD; Simin Olsen NP [...] 03/25/25 1353 DD/ 1247 TD/TT: 03/25/25 1347 Vacuum Tester Cans: [place] [address] XRay Report Signed Patient: Johnny Wylie MR#: [id number] 2670 : 1960 Acct:[id number] Age/Sex: 64 / M ADM Date: 03/25/25 Loc: .ED Attending Dr: Ordering Physician: Simin Olsen NP Date of Service: 03/25/25 Procedure(s): XR rolly t LT min 3V Accession Number(s): [id number] cc: Kun Medrano MD; Simin Olsen NP [...] 03/25/25 1353 DD/ 1247 TD/TT: 03/25/25 1347 Vacuum Tester Cans: Deng Moon. Panel Reviewed date:06/11/2025 01:43:32 PM Interpretation: Performing Lab:[facility], [address] [place] [address] Notes/Report: Sodium 142 135-145 mmol/L Potassium 4.2 [...] 10/26/2024 10:18:19 AM >appt is in the [place] office on [facility]. Patient is aware of the appt Referral Priority Routine Referral Appointment Date 12/01/2024 Medications Medication SIG (Take, Route, Frequency, Duration) Notes Start Date End Date Status Furosemide 40 MG TAKE ONE TABLET BY MOUTH EVERY DAY for 30 Active metFORMIN HCl 500 MG 2 tabs at supper Orally Once a day Active Cyclobenzaprine HCl 5 MG 1 tablet [...] for 30 day(s) 07/03/2012 Active Dexcom G6 Bag Tester - as directed 07/28/2024 Active ProAir HFA 108 (90 Base) MCG/ACT 2 puffs as needed Inhalation every 4 hrs for 30 days 09/18/2013 Not-Taking Zituvio 100 MG 1 tablet Orally Once a day for 30 days 09/18/2024 Active Dilantin 100 MG as directed Orally 3 tabs q AM 2 Q PM Active Dexcom G7 Bag Tester - as directed Active Rosuvastatin Calcium 40 MG TAKE 1 TABLET BY MOUTH ONCE DAILY for 30 Active Clobetasol Propionate 0.05 % APPLY EXTERNALLY TWO TIMES A DAY FOR 10 DAYS for 30 Active Dexcom G6 Sensor - USE DIRECTED EVER Y 10 DAYS for 60 Active Move Free Joint Health Advance - as directed Orally Active Vitamin D 50 MCG (2000 UT) 4 capsules Or ally Once a [...] Administered pt was given the vaccine at [facility] pharmacy in [place]. PPSV23 (Pnemovax) IM Intramuscular 09/30/2018 Administered Fluarix Quadrivalent Unknown 07/25/2019 Administered Bi Y in [place] Shingrix Unknown 04/23/2019 Administered 1st shot at [facility] [place] Shingrix Unknown 09/10/2019 Administered 2nd at [facility] [place] Influenza High Dose IM [...] Problem Status W/U Status Risk Notes Problem 414768621 Thrombocytopenia (D69.6) Active confirmed Problem 17310881 Lymphocytosis (D72.820) Active confirm ed Problem 10655257 Vitamin D defici ency (E55.9) Active confirmed Problem 02816458 Kidney stone (N20.0) Active confirmed Problem 6058348 Arthritis (M19.90) Active confirmed Problem 95721084 Type 2 diabetes mellitus without complication (E11.9) Active confirmed Problem 74155325 Type 2 diabetes, controlled, with neuropathy (E11.40) Active confirmed Problem 232501074 Elevated triglyc erides with high cholesterol (E78.2) Active confirmed Problem 204818414 Seizure disorder (G40.909) Active confirmed Problem 588529724 Hypoglycemia (E16.2) Active confirmed Problem 523833742 Pure hypercholesterolemia (E78.00) Active confirmed Vital Signs Blood pressure diastolic 70 mm Hg 03/30/2025 Height 61 in 03/30/2025 Blood pressure systolic 132 mm Hg 03/30/2025 Weight 201 lbs 03/30/2025 BMI 37.97 kg/m2 03/30/2025 Encounters Encounter Location Date Provider Diagnosis Kun Medrano MD [address] [place] [address] [id number] 10/26/2024 Kun Medrano Blood tests prior to treatment or procedure Z01.812 Kun Medrano MD [address] [place] [address] [id number] 12/03/2024 Kun Medrano Type 2 diabetes belinda itus without complication E11.9 and Pure hypercholesterolemia E78.00 Kun Medrano MD [address] [place] [address] [id number] 12/10/2024 Kun Medrano Type 2 diabetes belinda itus without complication E11.9 ; Pure hypercholesterolemia E78.00 and Seizure disorder G40.909 Kun Medrano MD [address] [place] [address] [id number] 05/21/2025 Kun Medrano UTI (urinary tract infection) N39.0 and Polyuria R35.89 Kun Medrano MD [address] [place] [address] [id number] 06/11/2025 Kun Medrano Blood tests for rout ine general physical examination Z00.00 ; Encounter for administration of vaccine Z23 ; Type 2 diabetes mellitus without complication E11.9 ; Pure hypercholesterolemia E78.00 and Lymphocytosis D72.820 Kun Medrano MD [address] [place] [address] [id number] 07/28/2024 Kun Medrano Type 2 diabetes belinda itus without complication E11.9 and Type 2 diabetes, controlled, with neuropathy E11.40 Kun Medrano MD [address] [place] [address] [id number] 10/22/2024 Kun Medrano 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 and Leg edema R60.0 Kun Medrano MD [address] [place] [address] [id number] 12/24/2024 Kun Medrano Type 2 diabetes belinda itus without complication E11.9 Kun Medrano MD [address] [place] [address] [id number] 02/09/2025 Kun Medrano Type 2 diabetes belinda itus without complication E11.9 and Dependent edema R60.9 Kun Medrano MD [address] [place] [address] [id number] 03/01/2025 Kun Medrano Type 2 diabetes belinda itus without complication E11.9 and Leg edema R60.0 Kun Medrano MD [address] [place] [address] [id number] 03/30/2025 Kun Medrano Type 2 diabetes belinda itus without complication E11.9 and Ecchymosis R58 Kun Medrano MD [address] [place] [address] [id number] 09/17/2024 Kun Medrano MD [address] [place] [address] [id number] 10/23/2024 Kun Medrano 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 Kun Medrano MD [address] [place] [address] [id number] 10/23/2024 Kun Medrano MD [address] [place] [address] [id number] 02/26/2025 Kun Medrano Type 2 diabetes belinda itus without complication E11.9 Kun Medrano MD [address] [place] [address] [id number] 03/25/2025 Kun Medrano MD [address] [place] [address] [id number] 07/20/2024 Kun Medrano MD [address] [place] [address] [id number] 09/18/2024 Kun Medrano MD [address] [place] [address] [id number] 09/18/2024 Kun Medrano MD [address] [place] [address] [id number] 10/05/2024 Kun Medrano MD [address] [place] [address] [id number] 10/16/2024 Kun Medrano MD [address] [place] [address] [id number] 10/22/2024 Kun Medrano MD [address] [place] [address] [id number] 10/22/2024 Kun Medrano MD [address] [place] [address] [id number] 10/25/2024 Kun Medrano MD [address] [place] [address] [id number] 11/02/2024 Kun Medrano MD [address] [place] [address] [id number] 11/04/2024 Kun Medrano MD [address] [place] [address] [id number] 12/22/2024 Kun Medrano MD [address] [place] [address] [id number] 12/29/2024 Kun Medrano MD [address] [place] [address] [id number] 01/05/2025 Kun Medrano MD [address] [place] [address] [id number] 01/05/2025 Kun Medrano MD [address] [place] [address] [id number] 01/05/2025 Kun Medrano MD [address] [place] [address] [id number] 01/14/2025 Kun Medrano MD [address] [place] [address] [id number] 02/07/2025 Kun Medrano MD [address] [place] [address] [id number] 02/24/2025 Kun Medrano MD [address] [place] [address] [id number] 02/26/2025 Kun Medrano Bronchitis 490 Kun Medrano MD [address] [place] [address] [id number] 02/26/2025 Kun Medrano MD [address] [place] [address] [id number] 02/26/2025 Kun Medrano MD [address] [place] [address] [id number] 03/26/2025 Kun Medrano MD [address] [place] [address] [id number] 05/11/2025 Kun Medrano MD [address] [place] [address] [id number] 05/11/2025 Kun Medrano MD [address] [place] [address] [id number] 05/20/2025 Kun Medrano Assessments Encounter Date Diagnosis [...] for administration of vaccine (ICD-10 - Z23) 07/28/2024 Type 2 diabetes mellitus without complication [...] but hopefully will start on diet 06/11/2025 Type 2 diabetes mellitus without complication (ICD-10 - E11.9) 12/10/2024 Seizure disorder (ICD-10 - G40.909) has not had any seizures in long period of time. will continue with present meds 06/11/2025 Pure hypercholesterolemia (ICD-10 - E78.00) 06/11/2025 Lymphocytosis (ICD-1 0 - D72.820) Plan Of Treatment Pending Test Test Name Order Date Electrocardiogram (EKG) 03/20/2016 Electrocardiogram (EKG) 03/29/2017 Comprehensive [place]. Panel Fast CT soft tissue neck w con 10/23/2024 CT soft tissue neck wo/w con 10/22/2024 Next Appt Details Provider Name:Kun Olivares ier, 06/18/2025 02:30:00 PM, [address] [place] [address], [address], [place], [place], [id number], Insurance Providers Payer Name Payer Address Payer Phone Subscriber Number Group Number Insured Name Patient Relationship to Insured Coverage Start Date Coverage End Date [employer] [address] [place], [place] [id number] [phone] [id number] Johnny Wylie Self - patient is the insured Medical (General) History Medical History History ICD Code refuses flu vac colonoscopy 04/08 repeat due 5 yrs tubula r ademoma
--- OUTSIDE RECORDS SUMMARY | 2025-06-17 17:06 | XMS_ITS | Data Portability ---
Author Organization [place] - [facility], Allergy Address [address] [place] [phone] Care Team Providers Care Sign Language Translator Name Role Phone ANGY KABA Primary Care [...] Details Recorded Time Left parotid gland swelling [id number] 106 Active 2024 Jimmie corrigan [place] - [facility] 04/28/202 5 19:54:04 Impacted cerumen of bilateral ears 74317804481474 08 Active 2024 Jimmie corrigan [place] - [facility] 5 19:55:29 Problem Notes None recorded. Procedures Surgical History Date Name Laterality Status Provider Name and Address Organization Details Recorded Time Cerumen removal without microscope bilat completed Jimmie Healy [place] - [facility] 12/14/2024 19:52:21 Imaging Results None recorded. Procedure Notes None recorded. Medical Equipment None Reported. Allergies Allergen ID Allergen Name Allergen Category Reaction Reaction Severity Criticality Documentation Date Start Date Code Code System Note Provider Name and Address Organization Details Recorded Time 880497 tree and shrub pollen environme nt,medica tion Not available Not available Not available 01/06/20251971 Jose Carlos corrigan [place] - [facility] 5 15:18:46 Medications Name Sig Start [...] Not Availabl e Not Available Dexcom G6 Motion And Time Study Teacher active Not Available Not Available Not Available Dexcom G6 Transmitter device active Not Available Not Available Not Available Zituvio 100 mg tablet active Not Available Not Available Not Available Vitals Date Recorded Body height Body mass index (BMI) Body weight Provider Name and Address Organization Details Last Updated DateTime 12/14/2024 154.94 cm 37 kg/m2 51237.1 g Jose Carlos Frances [facility] 12/14/2024 15:05:07 Date Recorded Body height Body mass index (BMI) Body weight Provider Name and Address Organization Details Last Updated DateTime 01/06/2025 154.94 cm 37 kg/m2 51822.1 g Jose Carlos Frances [facility] 01/06/2025 15:19:20 Social History Question Answer Notes LastModified by Organizat ion Details LastModified Time Tobacco Smoking Status Never Smoker Jose Carlos corrigan [facility] 12/14/2024 15:05:20 What Type Of Operations Vocational Instructor Do You Use? None Information not available [...] Migraines Y Thyroid Problems N Glaucoma Y Developmental Delay N Depression N COPD N Nasal or Sinus Problems N Anemia N Immune System Disorder N Anesthesia Complications N Heart Attack ([place]) N Other Skin Condition N Diabetes N [...] ICD10 Code Diagnosis IMO Codes Diagnosis Note [id number] JIMMIE HEALY PA-C [facility] on [address] [place] [address], [place] [address] 12/14/2024 14:30:46 12/14/2024 16:12:27 Left parotid gland swelling [id number] 3183512 K11.9 Impacted c erumen of bilateral ears 9313957696 632751 H61.23 [id number] BERNADETTE MORENO MD [facility] on [address] [place] [address], [place] [phone] 01/06/2025 15:17:15 01/06/2025 15:55:02 Left parotid gland swelling 9902586464 7316215 K11.9 No obvious tumors or masses. No [...] Navarro Member ID Guarantor Name 01/06/2025 1 [facility] [id number] Bernadette Wylie [id number] Bernadette Wylie Notes Date Note Type [...] to poor hydration. ADA KEYS MD [address] [facility],[address], [address], [place] - [facility] 12/14/2024 21:30:19 01/06/2025 text/html ROS as [...] mass or stone. BERNADETTE MORENO MD [address] [facility],[place] [address], [place], [address], [place] - [facility] 01/06/2025 15:59:27
== END 2025-06-17 14:51 | disposition home or self-care (01) ==
LOC: HO.HSM 14:04
PROVIDERS: PCP Internal Medicine; Visit Provider Registered Nurse
DX: G40.909 Epilepsy, unspecified, not intractable, without status epilepticus (principal); R55 Syncope and collapse
CPT/HCPCS: 99214